=== PATIENT | male | born 1965 | race Caucasian/White ===

== ENCOUNTER 2018-08-08 17:44 | Inpatient (IN) | payer MEDICAID, OTHER ==
[2018-08-08] MEDS ORDERED: Metoprolol tartrate 1 mg/ml 5mL Amp IV STA (17:59)
[2018-08-08] MEDS ORDERED: Metoprolol tartrate 1 mg/ml 5mL Amp IV ONE (18:00)
[2018-08-08] MEDS ORDERED: cefTRIAXone 1 GM in Sodium Chloride 0.9% 50 ML IV ONE (18:19)
[2018-08-08 18:20] LABS: % BASOPHILS 0.4 % (0.0-2.0); % EOSINOPHILS 2.1 % (0.0-5.0); % LYMPHOCYTES 19.6 % (20.0-50.0); % MONOCYTES 7.1 % (2.0-10.0); % NEUTROPHILS 70.8 % (40.0-80.0); EOSINOPHILE ABSOLUTE 0.2 Th/cmm (0.1-0.4); HEMATOCRIT 43.9 % (41.0-60); HEMOGLOBIN 14.3 gm/dL (12-16); LYMPHOCYTE ABSOLUTE 1.5 Th/cmm (1.5-3.0); MEAN CELL VOLUME 84.2 fl (80-99); MEAN CORPUSCULAR HEMOGLOBIN 27.5 pg (26.0-30.0); MEAN CORPUSCULAR HGB CONC 32.7 pg (28.0-36.0); MEAN PLATELET VOLUME 7.8 fl; MONOCYTE ABSOLUTE 0.6 Th/cmm (0.3-1.0); NEUTROPHILE ABSOLUTE 5.5 Th/cmm (1.8-8.0); PLATELET COUNT 244 Th/cmm (150-400); RED BLOOD COUNT 5.21 Mil/cmm (4.30-5.70); RED CELL DISTRIBUTION WIDTH 14.4 % (11.5-20.0); WHITE BLOOD COUNT 7.8 Th/cmm (4.8-10.8)
[2018-08-08 18:30] LABS: INR 1.33 (0.5-1.4); PROTHROMBIN TIME (TEST) 13.6 SECONDS (9.5-11.5)
[2018-08-08] MEDS ORDERED: Lactated Ringer 1,000 ML IV ONE (18:30)
[2018-08-08 18:32] LABS: ALB/GLOB RATIO 1.3 (1.0-1.8); ALKALINE PHOSPHATASE 95 U/L (34-104); ANION GAP 14.8 (7.0-16.0); BILIRUBIN,TOTAL 1.3 mg/dL (0.3-1.0); BUN - UREA NITROGEN 19 mg/dL (7-25); CALCIUM SERUM 9.1 mg/dL (8.6-10.3); CARBON DIOXIDE 27.1 mEq/L (21.0-31.0); CHLORIDE 101 mEq/L (98-107); CREATININE - SERUM 1.5 mg/dL (0.7-1.3); GFR AFRICAN-AMERICAN > 60.0 ml/min (>90); GLUCOSE 113 mg/dL (70-105); MAGNESIUM 1.8 mg/dL (1.9-2.7); POTASSIUM SERUM 3.9 mEq/L (3.5-5.1); SGOT 61 U/L (13-39); SGPT/ALT 65 U/L (7-52); SODIUM SERUM 139 mEq/L (136-145)
[2018-08-08 18:50] LABS: DDIMER QUANT 547 ng/mL (100-400)
[2018-08-08 19:07] LABS: URINE SOURCE CLEAN C
[2018-08-08 19:12] LABS: URINE BILIRUBIN MODERATE (NEGATIVE); URINE BLOOD NEGATIVE (NEGATIVE); URINE GLUCOSE (UA) NEGATIVE (NEGATIVE); URINE KETONE NEGATIVE (NEGATIVE); URINE LEUKOCYTE ESTERASE TRACE (NEGATIVE); URINE MICROSCOPIC INDICATED? YES; URINE NITRATE NEGATIVE (NEGATIVE); URINE PH 5.5 (4.6 - 8.0); URINE PROTEIN 30 mg/dL (NEGATIVE)
--- NOTE | 2018-08-08 19:16 | ED Physician Chart ---
ED Chief Complaint/HPI - Patient Information Allergies:: Allergies Allergy/AdvReac Type Severity Reaction Status Date / Time No Known Allergies Allergy Verified 08/08/18 18:00 Vitals:: Vital Signs - 8 hr 08/08/18 08/08/18 18:03 18:19 Temp 97.5 F HR 106 108 RR 22 BP 127/101 127/101 O2 Sat % 99 Family Medical History - Family Member Mother History Unknown: Yes ED Labs/Radiology/EKG Results - Lab Results Results: Laboratory Tests 08/08/18 08/08/18 08/08/18 18:10 18:10 18:10 WBC 7.8 RBC 5.21 Hgb 14.3 Hct 43.9 MCV 84.2 MCH 27.5 MCHC Differential 32.7 RDW 14.4 Plt Count 244 MPV 7.8 Neutrophils % 70.8 Lymphocytes % 19.6 L Monocytes % 7.1 Eosinophils % 2.1 Basophils % 0.4 PT INR PTT (Actin FS) D-Dimer 547 H Sodium 139 Potassium 3.9 Chloride 101 Carbon Dioxide 27.1 Anion Gap 14.8 BUN 19 Creatinine 1.5 H Est GFR ( Amer) > 60.0 Est GFR (Non-Af Amer) 52.0 BUN/Creatinine Ratio 12.7 Glucose 113 H Calcium 9.1 Phosphorus 4.0 Magnesium 1.8 L Total Bilirubin 1.3 H AST 61 H ALT 65 H Alkaline Phosphatase 95 Troponin I 0.23 H* D B-Natriuretic Peptide Total Protein 7.0 Albumin 4.0 L Globulin 3.0 Albumin/Globulin Ratio 1.3 08/08/18 08/08/18 18:10 18:10 WBC RBC Hgb Hct MCV MCH MCHC Differential RDW Plt Count MPV Neutrophils % Lymphocytes % Monocytes % Eosinophils % Basophils % PT 13.6 H INR 1.33 PTT (Actin FS) 29.2 D-Dimer Sodium Potassium Chloride Carbon Dioxide Anion Gap BUN Creatinine Est GFR ( Amer) Est GFR (Non-Af Amer) BUN/Creatinine Ratio Glucose Calcium Phosphorus Magnesium Total Bilirubin AST ALT Alkaline Phosphatase Troponin I B-Natriuretic Peptide 866.0 H Total Protein Albumin Globulin Albumin/Globulin Ratio ED Assessment - Assessment General Assessment: CXR: cardiomegaly and right hilar pneumonia. EKG from 17:43:37 p.m. sinus tachycardia, ST depression in V5-V6 Dr. Brizuela gave admit orders at 7:15 p.m. ED Septic Shock - . Is Septic Shock (SBP<90, OR Lactate>4 mmol\L) present?: No - <6hrs of presentation: Vital Signs: Vital Signs - 8 hr 08/08/18 08/08/18 18:03 18:19 Temp 97.5 F HR 106 108 RR 22 BP 127/101 127/101 O2 Sat % 99 ED Reassessment (Disposition) - Reassessment Reassessment Condition:: Improved - Diagnosis Diagnosis:: NonSTEMI myocardial infarction Right hilar pneumonia Renal insufficiency Elevated ddimer Elevated liver function tests Methamphetamine induced cardiomyopathy.
[2018-08-08 19:19] LABS: AMPHETAMINE URINE POSITIVE (NEGATIVE); METHAMPHETAMINES QUAL URINE POSITIVE (NEGATIVE)
[2018-08-08 19:20] LABS: BARBITURATES URINE NEGATIVE (NEGATIVE); BENZODIAZEPINES QUAL URINE NEGATIVE (NEGATIVE); CANNABINOID THC POSITIVE (NEGATIVE); COCAINE METABOLITE QUAL URINE NEGATIVE (NEGATIVE); METHADONE URINE NEGATIVE (NEGATIVE); OPIATES (MORPHINE) QUAL. URINE NEGATIVE (NEGATIVE); PHENCYCLIDINE (PCP) URINE NEGATIVE (NEGATIVE); TRICYCLICS (TCA) QUAL. URINE NEGATIVE (NEGATIVE)
[2018-08-08 19:27] LABS: URINE CLARITY HAZY (CLEAR)
[2018-08-08 19:28] LABS: URINE COLOR LIGHT ORANGE
[2018-08-08 19:29] LABS: URINE RBC NONE SEEN /hpf (0-5)
[2018-08-08 19:30] LABS: URINE BACTERIA MODERATE /hpf (NONE SEEN); URINE EPITHELIAL CELLS FEW /lpf (FEW)
[2018-08-08 19:34] LABS: URINE ICTOTEST NEGATIVE (NEGATIVE)
[2018-08-08 22:03] VITALS: BP 113/83
[2018-08-08] MEDS: Azithromycin 500 MG in Sodium Chloride 0.9% 250 ML IV SCH (22:36)
[2018-08-09 06:17] LABS: % BASOPHILS 0.7 % (0.0-2.0); % EOSINOPHILS 2.1 % (0.0-5.0); % LYMPHOCYTES 15.9 % (20.0-50.0); % MONOCYTES 7.3 % (2.0-10.0); BASOPHILE ABSOLUTE 0.1 Th/cumm (0-0.2); EOSINOPHILE ABSOLUTE 0.2 Th/cmm (0.1-0.4); HEMATOCRIT 41.6 % (41.0-60); HEMOGLOBIN 13.3 gm/dL (12-16); LYMPHOCYTE ABSOLUTE 1.3 Th/cmm (1.5-3.0); MEAN CELL VOLUME 85.4 fl (80-99); MEAN CORPUSCULAR HEMOGLOBIN 27.3 pg (26.0-30.0); MEAN PLATELET VOLUME 7.8 fl; MONOCYTE ABSOLUTE 0.6 Th/cmm (0.3-1.0); NEUTROPHILE ABSOLUTE 5.8 Th/cmm (1.8-8.0); PLATELET COUNT 241 Th/cmm (150-400); RED BLOOD COUNT 4.88 Mil/cmm (4.30-5.70)
[2018-08-09 06:46] LABS: ALB/GLOB RATIO 1.3 (1.0-1.8); ALBUMIN 3.6 gm/dL (4.2-5.5); ANION GAP 12.2 (7.0-16.0); BILIRUBIN,TOTAL 1.2 mg/dL (0.3-1.0); CARBON DIOXIDE 28.3 mEq/L (21.0-31.0); CREATININE - SERUM 1.7 mg/dL (0.7-1.3); GFR AFRICAN-AMERICAN 54.5 ml/min (>90); POTASSIUM SERUM 4.5 mEq/L (3.5-5.1); TOTAL PROTEIN,SERUM 6.4 gm/dL (6.0-8.3)
[2018-08-09] MEDS ORDERED: Non-Formulary Item 1 EA (Albuterol Sulfate [Proair Respiclick] 90 MCG) IH PRN (08:15)
[2018-08-09] MEDS ORDERED: Aspirin 81mg Chewable Tab PO SCH ×2 (09:00)
[2018-08-09] MEDS ORDERED: LISINOPRIL 20 MG PO SCH (09:00)
[2018-08-09] MEDS ORDERED: Albuterol Nebulizer 2.5mg/3mL HHN PRN (09:26)
--- NOTE | 2018-08-09 09:38 | Diagnostic Imaging Report ---
CHEST X-RAY: AP view INDICATION: pain COMPARISON: 10/26/2014 FINDINGS: There is no focal consolidation or pleural effusions cardiomegaly is noted. Degenerative changes of the spine are noted. IMPRESSION: No focal consolidation identified. Cardiomegaly.
--- NOTE | 2018-08-09 10:00 | History & Physical ---
ADMIT DATE: 08/08/2018 HISTORY OF PRESENT ILLNESS: The patient is a 52-year-old male patient who came to the Emergency Room complaining of chest pain and shortness of breath and the patient is apparently homeless. The patient was evaluated in the Emergency Room, found to have multiple problems including cardiomegaly, non-STEMI, renal insufficiency, elevated D-dimer and with a history of drug abuse and elevated liver enzymes, was admitted for evaluation of his right gilbert and possible right hilar pneumonia and rule out non-STEMI. Difficult to obtain much history from the patient. PAST MEDICAL HISTORY: Again included history of drug abuse, history of cardiomegaly and history of cardiomyopathy. The patient was recently admitted to some other hospital and a complete workup done and also has renal insufficiency. LABORATORY DATA: Initially when he came in, his white count 7.8, hemoglobin 14.3, hematocrit was okay. PT/INR is slightly high 1.33 INR and the patient's BUN of 19, creatinine 1.5 and his troponin was 0.23 and beta natriuretic peptide . The patient also has some bacteria in the urine and also positive for amphetamine and white cells 6-10. PHYSICAL EXAMINATION: HEAD: Normocephalic. EYES: Pupils equal and reactive to light. NECK: Supple, nontender. LUNGS: Bilateral rales. CARDIOVASCULAR SYSTEM: S1, S2 heard. ABDOMEN: Soft. Bowel sounds are heard. EKG showed some ST-T changes, ST depression in V5 and V6 and sinus tachycardia. DIAGNOSES: Possible congestive heart failure, cardiomegaly, cardiomyopathy, non-ST elevated myocardial infarction, right perihilar infiltrate, possible pneumonia, urinary tract infection and history of drug abuse, probably drug induced cardiomyopathy and high liver enzymes and high BNP was made. PLAN: The patient is being admitted. I will go ahead and give him Lasix and IV antibiotics and Cardiology, Dr. Сергей Haynes; ID doctor, Dr. Eliu Haynes see the patient and I will follow the patient. [facility]# [id number]
[2018-08-09] MEDS: cefTRIAXone 1 GM in Sodium Chloride 0.9% 50 ML IV SCH (16:19)
[2018-08-09] MEDS: Azithromycin 500 MG in Sodium Chloride 0.9% 250 ML IV SCH (20:24)
--- NOTE | 2018-08-09 23:42 | Consultation ---
DATE OF CONSULTATION: 08/09/2018 PATIENT OF: Dr. Brizuela. HISTORY AND PHYSICAL: This is a 52-year-old male patient who is homeless, was brought in because of chest pain. The patient was found to have cardiomyopathy with congestive heart failure and hence Cardiology consult is requested. PAST MEDICAL HISTORY: Cardiomyopathy nonischemic, substance abuse, urinary tract infection. FAMILY HISTORY: Substance abuse, history of elevated liver enzymes. PHYSICAL EXAMINATION: VITAL SIGNS: Blood pressure 120/80, pulse 70, respirations 20, temperature 98. LUNGS: Occasional wheeze. Basilar rales. HEART: PMI sixth intercostal space with lateral to midclavicular line. S1, S2, S3, S4, soft systolic murmur radiating to the left axilla. ABDOMEN: Soft, hepatojugular reflux. Positive bowel sounds active. NEUROLOGIC: Unremarkable. EXTREMITIES: Peripheral pulses 2+. Minimal pedal edema. The patient had echocardiogram, which showed hypertrophy of the left ventricle, left atrial enlargement, right atrial enlargement, ejection fraction 20% with moderate mitral regurgitation, moderate tricuspid regurgitation, trace pulmonary regurgitation, right ventricular systolic pressure 42 mmHg. DIAGNOSES: Congestive heart failure, systolic dysfunction acute, non ST-elevation myocardial infarction, nonischemic cardiomyopathy, pneumonia, urinary tract infection, elevated liver enzymes etiology unknown, probably substance abuse. PLAN: The patient to get diuretics, preload afterload reduction. The patient to be monitored on telemetry bed. JOB# [id number]
[2018-08-10 06:45] LABS: % BASOPHILS 0.3 % (0.0-2.0); % EOSINOPHILS 4.4 % (0.0-5.0); % LYMPHOCYTES 27.5 % (20.0-50.0); % MONOCYTES 10.9 % (2.0-10.0); % NEUTROPHILS 56.9 % (40.0-80.0); EOSINOPHILE ABSOLUTE 0.3 Th/cmm (0.1-0.4); HEMATOCRIT 37.5 % (41.0-60); HEMOGLOBIN 12.4 gm/dL (12-16); LYMPHOCYTE ABSOLUTE 1.8 Th/cmm (1.5-3.0); MEAN CELL VOLUME 84.5 fl (80-99); MEAN CORPUSCULAR HEMOGLOBIN 27.9 pg (26.0-30.0); MEAN PLATELET VOLUME 8.3 fl; MONOCYTE ABSOLUTE 0.7 Th/cmm (0.3-1.0); NEUTROPHILE ABSOLUTE 3.9 Th/cmm (1.8-8.0); PLATELET COUNT 212 Th/cmm (150-400); RED BLOOD COUNT 4.44 Mil/cmm (4.30-5.70); RED CELL DISTRIBUTION WIDTH 14.2 % (11.5-20.0); WHITE BLOOD COUNT 6.7 Th/cmm (4.8-10.8)
[2018-08-10 07:04] LABS: ANION GAP 12.5 (7.0-16.0); CALCIUM SERUM 8.3 mg/dL (8.6-10.3); CARBON DIOXIDE 26.2 mEq/L (21.0-31.0); CREATININE - SERUM 1.6 mg/dL (0.7-1.3); GFR AFRICAN-AMERICAN 58.4 ml/min (>90); GFR NON AFRICAN-AMERICAN 48.3 ml/min; POTASSIUM SERUM 3.7 mEq/L (3.5-5.1)
[2018-08-10] MEDS: Aspirin 81mg Chewable Tab PO SCH (08:29)
--- NOTE | 2018-08-10 12:05 | Internal Medicine Prog Note ---
Internal Medicine Subjective - Subjective Patient seen and examined:: chart reviewed Patient is:: awake, other (pt with multiple problems non.STEMI,renal insufficiency) Per staff patient has:: no adverse event Internal Medicine Objective - Results Result Diagrams: 08/10/18 05:40 08/10/18 05:40 Recent Labs: Laboratory Last Values WBC 6.7 Th/cmm (4.8-10.8) 08/10/18 05:40 RBC 4.44 Mil/cmm (4.30-5.70) 08/10/18 05:40 Hgb 12.4 gm/dL (12-16) 08/10/18 05:40 Hct 37.5 % (41.0-60) L 08/10/18 05:40 MCV 84.5 fl (80-99) 08/10/18 05:40 MCH 27.9 pg (26.0-30.0) 08/10/18 05:40 MCHC Differential 33.0 pg (28.0-36.0) 08/10/18 05:40 RDW 14.2 % (11.5-20.0) 08/10/18 05:40 Plt Count 212 Th/cmm (150-400) 08/10/18 05:40 MPV 8.3 fl 08/10/18 05:40 Neutrophils % 56.9 % (40.0-80.0) 08/10/18 05:40 Lymphocytes % 27.5 % (20.0-50.0) 08/10/18 05:40 Monocytes % 10.9 % (2.0-10.0) H 08/10/18 05:40 Eosinophils % 4.4 % (0.0-5.0) 08/10/18 05:40 Basophils % 0.3 % (0.0-2.0) 08/10/18 05:40 PT 13.6 SECONDS (9.5-11.5) H 08/08/18 18:10 INR 1.33 (0.5-1.4) 08/08/18 18:10 PTT (Actin FS) 29.2 SECONDS (26.0-38.0) 08/08/18 18:10 D-Dimer 547 ng/mL (100-400) H 08/08/18 18:10 Sodium 136 mEq/L (136-145) 08/10/18 05:40 Potassium 3.7 mEq/L (3.5-5.1) 08/10/18 05:40 Chloride 101 mEq/L (98-107) 08/10/18 05:40 Carbon Dioxide 26.2 mEq/L (21.0-31.0) 08/10/18 05:40 Anion Gap 12.5 (7.0-16.0) 08/10/18 05:40 BUN 22 mg/dL (7-25) 08/10/18 05:40 Creatinine 1.6 mg/dL (0.7-1.3) H 08/10/18 05:40 Est GFR ( Amer) 58.4 ml/min (>90) 08/10/18 05:40 Est GFR (Non-Af Amer) 48.3 ml/min 08/10/18 05:40 BUN/Creatinine Ratio 13.8 08/10/18 05:40 Glucose 112 mg/dL (70-105) H 08/10/18 05:40 Calcium 8.3 mg/dL (8.6-10.3) L 08/10/18 05:40 Phosphorus 4.0 mg/dL (2.5-5.0) 08/08/18 18:10 Magnesium 1.8 mg/dL (1.9-2.7) L 08/08/18 18:10 Total Bilirubin 1.2 mg/dL (0.3-1.0) H 08/09/18 05:35 AST 85 U/L (13-39) H 08/09/18 05:35 ALT 94 U/L (7-52) H 08/09/18 05:35 Alkaline Phosphatase 83 U/L (34-104) 08/09/18 05:35 Troponin I 0.12 ng/mL (0.01-0.05) H* D 08/09/18 10:00 B-Natriuretic Peptide 848.0 pg/mL (5.0-100.0) H 08/10/18 05:40 Total Protein 6.4 gm/dL (6.0-8.3) 08/09/18 05:35 Albumin 3.6 gm/dL (4.2-5.5) L 08/09/18 05:35 Globulin 2.8 gm/dL 08/09/18 05:35 Albumin/Globulin Ratio 1.3 (1.0-1.8) 08/09/18 05:35 Triglycerides 77 mg/dL (<150) 08/09/18 05:35 Cholesterol 134 mg/dL (<200) 08/09/18 05:35 LDL Cholesterol Direct 122 mg/dL (75-193) 08/09/18 05:35 HDL Cholesterol 23 mg/dL (23-92) 08/09/18 05:35 TSH 1.53 uIU/ml (0.34-5.60) 08/09/18 05:00 Urine Source CLEAN C 08/08/18 19:00 Urine Color LIGHT ORANGE 08/08/18 19:00 Urine Clarity HAZY (CLEAR) 08/08/18 19:00 Urine pH 5.5 (4.6 - 8.0) 08/08/18 19:00 Ur Specific [place] >= 1.030 (1.005-1.030) 08/08/18 19:00 Urine Protein 30 mg/dL (NEGATIVE) H 08/08/18 19:00 Urine Glucose (UA) NEGATIVE mg/dL (NEGATIVE) 08/08/18 19:00 Urine Ketones NEGATIVE mg/dL (NEGATIVE) 08/08/18 19:00 Urine Blood NEGATIVE (NEGATIVE) 08/08/18 19:00 Urine Nitrate NEGATIVE (NEGATIVE) 08/08/18 19:00 Urine Bilirubin MODERATE (NEGATIVE) H 08/08/18 19:00 Urine Ictotest NEGATIVE (NEGATIVE) 08/08/18 19:00 Urine Urobilinogen 2.0 E.U./dL (0.2 - 1.0) 08/08/18 19:00 Ur Leukocyte Esterase TRACE (NEGATIVE) H 08/08/18 19:00 Urine RBC NONE SEEN /hpf (0-5) 08/08/18 19:00 Urine WBC 6-10 /hpf (0-5) 08/08/18 19:00 Ur Epithelial Cells FEW /lpf (FEW) 08/08/18 19:00 Urine Bacteria MODERATE /hpf (NONE SEEN) H 08/08/18 19:00 Urine Opiates Screen NEGATIVE (NEGATIVE) 08/08/18 19:00 Urine Methadone Screen NEGATIVE (NEGATIVE) 08/08/18 19:00 Ur Barbiturates Screen NEGATIVE (NEGATIVE) 08/08/18 19:00 Ur Tricyclics Screen NEGATIVE (NEGATIVE) 08/08/18 19:00 Ur Phencyclidine Scrn NEGATIVE (NEGATIVE) 08/08/18 19:00 Amphetamines Screen POSITIVE (NEGATIVE) H 08/08/18 19:00 U Methamphetamines Scrn POSITIVE (NEGATIVE) H 08/08/18 19:00 U Benzodiazepines Scrn NEGATIVE (NEGATIVE) 08/08/18 19:00 U Cocaine Metab Screen NEGATIVE (NEGATIVE) 08/08/18 19:00 U Cannabinoids Screen POSITIVE (NEGATIVE) H 08/08/18 19:00 - Physical Exam Vitals and I&O: Vital Signs Temp 98.3 F 08/10/18 11:33 Pulse 63 08/10/18 11:33 Resp 18 08/10/18 11:33 BP 110/68 08/10/18 11:33 Pulse Ox 98 08/10/18 11:33 Intake & Output 08/09/18 08/10/18 08/10/18 18:59 06:59 18:59 Intake Total 1250 610 Output Total 3 Balance 1250 607 Weight (lbs) 97.522 kg 97.522 kg Intake: Intake, IV Amount 250 250 Azithromycin 500 mg In 250 250 Sodium Chloride 0.9% 250 ml @ 250 mls/hr IV Q24HR REPLACED BY [facility] Rx#:[id number] Oral 1000 360 Output: Urine 3 Other: # Voids 6 # Bowel Movements 1 1 Weight Source Bedscale Bedscale Active Medications: Current Medications Albuterol Sulfate (Albuterol 2.5mg/3ml Neb Ud) 2.5 mg HHN Q4HRT PRN PRN Reason: Shortness of Breath Stop: 10/08/18 09:25 Aspirin (Aspirin Chewable) 81 mg PO DAILY JOE Stop: 10/09/18 08:59 Last Admin: 08/10/18 08:29 Dose: 81 mg Carvedilol (Coreg) 12.5 mg PO BID JOE Stop: 10/08/18 16:59 Last Admin: 08/10/18 08:29 Dose: 12.5 mg Furosemide (Lasix) 40 mg IVP BID JOE Stop: 10/08/18 16:59 Last Admin: 08/10/18 08:29 Dose: 40 mg Ceftriaxone Sodium 1 gm/ (Sodium Chloride) 50 mls @ 100 mls/hr IV Q24HR JOE Stop: 10/08/18 15:59 Last Admin: 08/09/18 16:19 Dose: 100 mls/hr Azithromycin 500 mg/ Sodium (Chloride) 250 mls @ 250 mls/hr IV Q24HR JOE Stop: 10/07/18 19:59 Last Infusion: 08/09/18 21:24 Dose: Infused Lisinopril (Zestril) 20 mg PO DAILY JOE Stop: 10/08/18 08:59 Last Admin: 08/10/18 08:28 Dose: 20 mg Nitroglycerin (Nitrostat) 0.4 mg SL Q5MIN PRN PRN Reason: Chest Pain Stop: 10/07/18 19:44 Ondansetron HCl (Zofran) 4 mg IV Q6H PRN PRN Reason: Nausea / Vomiting Stop: 10/08/18 20:54 Simvastatin (Zocor) 20 mg PO HS JOE; Protocol Stop: 10/08/18 20:59 Last Admin: 08/09/18 20:24 Dose: 20 mg General: weak, alert HEENT: NC/AT Neck: Supple Lungs: other (rales max) Cardiovascular: RRR Abdomen: soft Extremities: clear Neurological: no change, alert - Procedures Procedures: Procedures Procedure Code Date INJECT/INFUSE NEC 99.29 02/21/10 Internal Medicine Assmt/Plan - Assessment Assessment: non-STEMI cardiomegaly renal insufficiency elevated D dimer possible pneumonia uti h/o drug abuse
--- NOTE | 2018-08-10 14:59 | General Progress Note ---
Subjective - Review of Systems Service Date: 08/10/18 Subjective: Patient has less shortness of breath less swelling in the legs Objective - Results Result Diagrams: 08/10/18 05:40 08/10/18 05:40 Recent Labs: Laboratory Last Values WBC 6.7 Th/cmm (4.8-10.8) 08/10/18 05:40 RBC 4.44 Mil/cmm (4.30-5.70) 08/10/18 05:40 Hgb 12.4 gm/dL (12-16) 08/10/18 05:40 Hct 37.5 % (41.0-60) L 08/10/18 05:40 MCV 84.5 fl (80-99) 08/10/18 05:40 MCH 27.9 pg (26.0-30.0) 08/10/18 05:40 MCHC Differential 33.0 pg (28.0-36.0) 08/10/18 05:40 RDW 14.2 % (11.5-20.0) 08/10/18 05:40 Plt Count 212 Th/cmm (150-400) 08/10/18 05:40 MPV 8.3 fl 08/10/18 05:40 Neutrophils % 56.9 % (40.0-80.0) 08/10/18 05:40 Lymphocytes % 27.5 % (20.0-50.0) 08/10/18 05:40 Monocytes % 10.9 % (2.0-10.0) H 08/10/18 05:40 Eosinophils % 4.4 % (0.0-5.0) 08/10/18 05:40 Basophils % 0.3 % (0.0-2.0) 08/10/18 05:40 PT 13.6 SECONDS (9.5-11.5) H 08/08/18 18:10 INR 1.33 (0.5-1.4) 08/08/18 18:10 PTT (Actin FS) 29.2 SECONDS (26.0-38.0) 08/08/18 18:10 D-Dimer 547 ng/mL (100-400) H 08/08/18 18:10 Sodium 136 mEq/L (136-145) 08/10/18 05:40 Potassium 3.7 mEq/L (3.5-5.1) 08/10/18 05:40 Chloride 101 mEq/L (98-107) 08/10/18 05:40 Carbon Dioxide 26.2 mEq/L (21.0-31.0) 08/10/18 05:40 Anion Gap 12.5 (7.0-16.0) 08/10/18 05:40 BUN 22 mg/dL (7-25) 08/10/18 05:40 Creatinine 1.6 mg/dL (0.7-1.3) H 08/10/18 05:40 Est GFR ( Amer) 58.4 ml/min (>90) 08/10/18 05:40 Est GFR (Non-Af Amer) 48.3 ml/min 08/10/18 05:40 BUN/Creatinine Ratio 13.8 08/10/18 05:40 Glucose 112 mg/dL (70-105) H 08/10/18 05:40 Calcium 8.3 mg/dL (8.6-10.3) L 08/10/18 05:40 Phosphorus 4.0 mg/dL (2.5-5.0) 08/08/18 18:10 Magnesium 1.8 mg/dL (1.9-2.7) L 08/08/18 18:10 Total Bilirubin 1.2 mg/dL (0.3-1.0) H 08/09/18 05:35 AST 85 U/L (13-39) H 08/09/18 05:35 ALT 94 U/L (7-52) H 08/09/18 05:35 Alkaline Phosphatase 83 U/L (34-104) 08/09/18 05:35 Troponin I 0.12 ng/mL (0.01-0.05) H* D 08/09/18 10:00 B-Natriuretic Peptide 848.0 pg/mL (5.0-100.0) H 08/10/18 05:40 Total Protein 6.4 gm/dL (6.0-8.3) 08/09/18 05:35 Albumin 3.6 gm/dL (4.2-5.5) L 08/09/18 05:35 Globulin 2.8 gm/dL 08/09/18 05:35 Albumin/Globulin Ratio 1.3 (1.0-1.8) 08/09/18 05:35 Triglycerides 77 mg/dL (<150) 08/09/18 05:35 Cholesterol 134 mg/dL (<200) 08/09/18 05:35 LDL Cholesterol Direct 122 mg/dL (75-193) 08/09/18 05:35 HDL Cholesterol 23 mg/dL (23-92) 08/09/18 05:35 TSH 1.53 uIU/ml (0.34-5.60) 08/09/18 05:00 Urine Source CLEAN C 08/08/18 19:00 Urine Color LIGHT ORANGE 08/08/18 19:00 Urine Clarity HAZY (CLEAR) 08/08/18 19:00 Urine pH 5.5 (4.6 - 8.0) 08/08/18 19:00 Ur Specific [place] >= 1.030 (1.005-1.030) 08/08/18 19:00 Urine Protein 30 mg/dL (NEGATIVE) H 08/08/18 19:00 Urine Glucose (UA) NEGATIVE mg/dL (NEGATIVE) 08/08/18 19:00 Urine Ketones NEGATIVE mg/dL (NEGATIVE) 08/08/18 19:00 Urine Blood NEGATIVE (NEGATIVE) 08/08/18 19:00 Urine Nitrate NEGATIVE (NEGATIVE) 08/08/18 19:00 Urine Bilirubin MODERATE (NEGATIVE) H 08/08/18 19:00 Urine Ictotest NEGATIVE (NEGATIVE) 08/08/18 19:00 Urine Urobilinogen 2.0 E.U./dL (0.2 - 1.0) 08/08/18 19:00 Ur Leukocyte Esterase TRACE (NEGATIVE) H 08/08/18 19:00 Urine RBC NONE SEEN /hpf (0-5) 08/08/18 19:00 Urine WBC 6-10 /hpf (0-5) 08/08/18 19:00 Ur Epithelial Cells FEW /lpf (FEW) 08/08/18 19:00 Urine Bacteria MODERATE /hpf (NONE SEEN) H 08/08/18 19:00 Urine Opiates Screen NEGATIVE (NEGATIVE) 08/08/18 19:00 Urine Methadone Screen NEGATIVE (NEGATIVE) 08/08/18 19:00 Ur Barbiturates Screen NEGATIVE (NEGATIVE) 08/08/18 19:00 Ur Tricyclics Screen NEGATIVE (NEGATIVE) 08/08/18 19:00 Ur Phencyclidine Scrn NEGATIVE (NEGATIVE) 08/08/18 19:00 Amphetamines Screen POSITIVE (NEGATIVE) H 08/08/18 19:00 U Methamphetamines Scrn POSITIVE (NEGATIVE) H 08/08/18 19:00 U Benzodiazepines Scrn NEGATIVE (NEGATIVE) 08/08/18 19:00 U Cocaine Metab Screen NEGATIVE (NEGATIVE) 08/08/18 19:00 U Cannabinoids Screen POSITIVE (NEGATIVE) H 08/08/18 19:00 - Physical Exam Vitals and I&O: Vital Signs Temp 98.3 F 08/10/18 11:33 Pulse 74 08/10/18 14:26 Resp 18 08/10/18 14:26 BP 110/68 08/10/18 11:33 Pulse Ox 97 08/10/18 14:26 Intake & Output 08/09/18 08/10/18 08/10/18 18:59 06:59 18:59 Intake Total 1250 610 Output Total 3 Balance 1250 607 Weight (lbs) 97.522 kg 97.522 kg Intake: Intake, IV Amount 250 250 Azithromycin 500 mg In 250 250 Sodium Chloride 0.9% 250 ml @ 250 mls/hr IV Q24HR [facility] Rx#:[id number] Oral 1000 360 Output: Urine 3 Other: # Voids 6 # Bowel Movements 1 1 Weight Source Bedscale Bedscale Active Medications: Current Medications Albuterol Sulfate (Albuterol 2.5mg/3ml Neb Ud) 2.5 mg HHN Q4HRT PRN PRN Reason: Shortness of Breath Stop: 10/08/18 09:25 Aspirin (Aspirin Chewable) 81 mg PO DAILY [facility] Stop: 10/09/18 08:59 Last Admin: 08/10/18 08:29 Dose: 81 mg Carvedilol (Coreg) 12.5 mg PO BID JOE Stop: 10/08/18 16:59 Last Admin: 08/10/18 08:29 Dose: 12.5 mg Furosemide (Lasix) 40 mg IVP BID JOE Stop: 10/08/18 16:59 Last Admin: 08/10/18 08:29 Dose: 40 mg Ceftriaxone Sodium 1 gm/ (Sodium Chloride) 50 mls @ 100 mls/hr IV Q24HR JOE Stop: 10/08/18 15:59 Last Admin: 08/09/18 16:19 Dose: 100 mls/hr Azithromycin 500 mg/ Sodium (Chloride) 250 mls @ 250 mls/hr IV Q24HR JOE Stop: 10/07/18 19:59 Last Infusion: 08/09/18 21:24 Dose: Infused Lisinopril (Zestril) 20 mg PO DAILY JOE Stop: 10/08/18 08:59 Last Admin: 08/10/18 08:28 Dose: 20 mg Nitroglycerin (Nitrostat) 0.4 mg SL Q5MIN PRN PRN Reason: Chest Pain Stop: 10/07/18 19:44 Ondansetron HCl (Zofran) 4 mg IV Q6H PRN PRN Reason: Nausea / Vomiting Stop: 10/08/18 20:54 Simvastatin (Zocor) 20 mg PO HS JOE; Protocol Stop: 10/08/18 20:59 Last Admin: 08/09/18 20:24 Dose: 20 mg General: Alert, Oriented x3, Mild distress HEENT: Mucous membr. moist/pink Neck: Supple, JVD, +2 carotid pulse wo bruit (10 cm upon sternal angle) Cardiovascular: Regular rate, Normal S1, Normal S2, Systolic murmurs Lungs: Other Abdomen: Bowel sounds, Soft, Obese Extremities: Edema Neurological: Normal gait, Normal speech (r), Strength at 5/5 X4 ext, Normal tone, Cranial nerves 3-12 NL, Reflexes 2+ - Procedures Procedures: Procedures Procedure Code Date INJECT/INFUSE NEC 99.29 02/21/10 Assessment/Plan - Problem List Patient Problems: All Active Problems NSTEMI (non-ST elevated myocardial infarction) (Acute) I21.4 POSSIBLE SEIZURE WITH RIGHT EAR PAIN (Acute) - Assessment Assessment: Congestive heart failure systolic dysfunction and acute Nonischemic cardiomyopathy ejection fraction 20% Non-STEMI myocardial infarction Substance abuse Pneumonia urinary tract infection Elevated liver enzymes - Plan Plan: Continue Lasix.
[2018-08-10] MEDS: cefTRIAXone 1 GM in Sodium Chloride 0.9% 50 ML IV SCH (16:56)
[2018-08-10] MEDS ORDERED: Sodium Chloride 0.9% 500 ML IV ONE (20:30)
[2018-08-10] MEDS: Azithromycin 500 MG in Sodium Chloride 0.9% 250 ML IV SCH (20:56)
[2018-08-10 21:51] LABS: INF A SCREEN NEG FOR INF A; INF B SCREEN NEG FOR INF B
[2018-08-10] MEDS ORDERED: Albumin 25% 25gm/100mL 25 GM/100 ML BTL IV ONE (23:40)
[2018-08-10] MEDS ORDERED: Norepinephrine 4 mg/4mL Vial IV ONE (23:44)
[2018-08-11] MEDS ORDERED: Albumin 25% 25gm/100mL 25 GM/100 ML BTL IV ONE (00:40)
--- NOTE | 2018-08-11 04:45 | Consultation ---
DATE OF CONSULTATION: 08/10/2018 INFECTIOUS DISEASE CONSULTATION REFERRING PHYSICIAN: Haily Brizuela MD REASON FOR CONSULTATION: Pneumonia. HISTORY OF PRESENT ILLNESS: The patient is a 52-year-old male with a past medical history of IV drug abuse, cardiomyopathy with ejection fraction 20%, presented to ER with chest pain and shortness of breath. On initial evaluation, the patient's temperature was 97.5 degrees Fahrenheit and WBC count was 7800. Chest x-ray showed right perihilar infiltrates. ID consult was called for the antibiotic management. Meanwhile, the patient was already started on Rocephin and Zithromax. PAST MEDICAL HISTORY: As mentioned above, the patient has history of IV drug abuse, severe cardiomyopathy with a low ejection fraction of 20% and non-[place] myocardial infarction, renal insufficiency, elevated liver enzymes, cardiomyopathy. SOCIAL HISTORY: The patient is homeless. Has history of smoking and alcohol. The patient has history of smoking and IV drug abuse in the past. FAMILY HISTORY: Not available. PHYSICAL EXAMINATION: VITAL SIGNS: Current vital signs shows temperature is 98 degrees Fahrenheit, pulse 74, respirations 17, blood pressure 116/74. GENERAL: Pleasant, comfortable lying in the bed, not in acute distress. HEENT: Head is normocephalic, atraumatic. Oral cavity moist, pink tongue. Eyes: Pallor is present. NECK: Supple. JVD present. CHEST: Bilateral breath sounds, decreased breath sounds at bases. HEART: S1, S2 within normal limits. Regular rhythm. No murmur, no gallop. ABDOMEN: Soft, nontender, nondistended. Bowel sounds present. EXTREMITIES: No cyanosis, clubbing or edema. NEUROLOGIC: Alert, awake, oriented x 3. LABORATORY DATA: Current lab shows WBC count is 6700, hemoglobin 12.4, hematocrit 37.5, platelets are 212,000, neutrophils 57%. Sodium 136, potassium 3.7, chloride 101, bicarb is 26.2, BUN is 22, creatinine 1.6, glucose is 112. Urinalysis showed leukocyte esterase, moderate bacteria, wbc's 6-10. Urine tox screen was positive for amphetamine, methamphetamine and cannabinoids. Blood culture 2 sets are negative. MRSA screen is negative. Chest x-ray reported negative, but there is right perihilar infiltrate, cardiomegaly. IMPRESSION: 1. Right-sided pneumonia. 2. Mild urinary tract infection. 3. Congestive heart failure. 4. IV drug abuse. 5. Cardiomyopathy with low ejection fraction. 6. Renal insufficiency. 7. Drug abuse. 8. Elevated liver enzymes. PLAN: Continue vancomycin and continue Rocephin and Zithromax. Check influenza screen. Systolic blood pressure dropped to 80s, so IV fluids bolus was given. Thank you Dr. Brizuela for allowing me to take care of this patient. JOB# [id number] MTDD
[2018-08-11 05:17] LABS: CALCIUM SERUM 8.4 mg/dL (8.6-10.3); CARBON DIOXIDE 26.9 mEq/L (21.0-31.0); CREATININE - SERUM 1.6 mg/dL (0.7-1.3); GFR AFRICAN-AMERICAN 58.4 ml/min (>90); GFR NON AFRICAN-AMERICAN 48.3 ml/min; POTASSIUM SERUM 3.9 mEq/L (3.5-5.1)
[2018-08-11] MEDS: Aspirin 81mg Chewable Tab PO SCH (08:17)
--- NOTE | 2018-08-11 12:23 | General Progress Note ---
Subjective - Review of Systems Service Date: 08/11/18 Subjective: Patient has less shortness of breath less swelling in the legs Patient transferred to ICU as patient became hypotensive Objective - Results Result Diagrams: 08/10/18 05:40 08/11/18 04:15 Recent Labs: Laboratory Last Values WBC 6.7 Th/cmm (4.8-10.8) 08/10/18 05:40 RBC 4.44 Mil/cmm (4.30-5.70) 08/10/18 05:40 Hgb 12.4 gm/dL (12-16) 08/10/18 05:40 Hct 37.5 % (41.0-60) L 08/10/18 05:40 MCV 84.5 fl (80-99) 08/10/18 05:40 MCH 27.9 pg (26.0-30.0) 08/10/18 05:40 MCHC Differential 33.0 pg (28.0-36.0) 08/10/18 05:40 RDW 14.2 % (11.5-20.0) 08/10/18 05:40 Plt Count 212 Th/cmm (150-400) 08/10/18 05:40 MPV 8.3 fl 08/10/18 05:40 Neutrophils % 56.9 % (40.0-80.0) 08/10/18 05:40 Lymphocytes % 27.5 % (20.0-50.0) 08/10/18 05:40 Monocytes % 10.9 % (2.0-10.0) H 08/10/18 05:40 Eosinophils % 4.4 % (0.0-5.0) 08/10/18 05:40 Basophils % 0.3 % (0.0-2.0) 08/10/18 05:40 PT 13.6 SECONDS (9.5-11.5) H 08/08/18 18:10 INR 1.33 (0.5-1.4) 08/08/18 18:10 PTT (Actin FS) 29.2 SECONDS (26.0-38.0) 08/08/18 18:10 D-Dimer 547 ng/mL (100-400) H 08/08/18 18:10 Sodium 137 mEq/L (136-145) 08/11/18 04:15 Potassium 3.9 mEq/L (3.5-5.1) 08/11/18 04:15 Chloride 101 mEq/L (98-107) 08/11/18 04:15 Carbon Dioxide 26.9 mEq/L (21.0-31.0) 08/11/18 04:15 Anion Gap 13.0 (7.0-16.0) 08/11/18 04:15 BUN 27 mg/dL (7-25) H 08/11/18 04:15 Creatinine 1.6 mg/dL (0.7-1.3) H 08/11/18 04:15 Est GFR ( Amer) 58.4 ml/min (>90) 08/11/18 04:15 Est GFR (Non-Af Amer) 48.3 ml/min 08/11/18 04:15 BUN/Creatinine Ratio 16.9 08/11/18 04:15 Glucose 117 mg/dL (70-105) H 08/11/18 04:15 Calcium 8.4 mg/dL (8.6-10.3) L 08/11/18 04:15 Phosphorus 4.0 mg/dL (2.5-5.0) 08/08/18 18:10 Magnesium 1.8 mg/dL (1.9-2.7) L 08/08/18 18:10 Total Bilirubin 1.2 mg/dL (0.3-1.0) H 08/09/18 05:35 AST 85 U/L (13-39) H 08/09/18 05:35 ALT 94 U/L (7-52) H 08/09/18 05:35 Alkaline Phosphatase 83 U/L (34-104) 08/09/18 05:35 Troponin I 0.12 ng/mL (0.01-0.05) H* D 08/09/18 10:00 B-Natriuretic Peptide 671.0 pg/mL (5.0-100.0) H 08/11/18 04:15 Total Protein 6.4 gm/dL (6.0-8.3) 08/09/18 05:35 Albumin 3.6 gm/dL (4.2-5.5) L 08/09/18 05:35 Globulin 2.8 gm/dL 08/09/18 05:35 Albumin/Globulin Ratio 1.3 (1.0-1.8) 08/09/18 05:35 Triglycerides 77 mg/dL (<150) 08/09/18 05:35 Cholesterol 134 mg/dL (<200) 08/09/18 05:35 LDL Cholesterol Direct 122 mg/dL (75-193) 08/09/18 05:35 HDL Cholesterol 23 mg/dL (23-92) 08/09/18 05:35 TSH 1.53 uIU/ml (0.34-5.60) 08/09/18 05:00 Urine Source CLEAN C 08/08/18 19:00 Urine Color LIGHT ORANGE 08/08/18 19:00 Urine Clarity HAZY (CLEAR) 08/08/18 19:00 Urine pH 5.5 (4.6 - 8.0) 08/08/18 19:00 Ur Specific [place] >= 1.030 (1.005-1.030) 08/08/18 19:00 Urine Protein 30 mg/dL (NEGATIVE) H 08/08/18 19:00 Urine Glucose (UA) NEGATIVE mg/dL (NEGATIVE) 08/08/18 19:00 Urine Ketones NEGATIVE mg/dL (NEGATIVE) 08/08/18 19:00 Urine Blood NEGATIVE (NEGATIVE) 08/08/18 19:00 Urine Nitrate NEGATIVE (NEGATIVE) 08/08/18 19:00 Urine Bilirubin MODERATE (NEGATIVE) H 08/08/18 19:00 Urine Ictotest NEGATIVE (NEGATIVE) 08/08/18 19:00 Urine Urobilinogen 2.0 E.U./dL (0.2 - 1.0) 08/08/18 19:00 Ur Leukocyte Esterase TRACE (NEGATIVE) H 08/08/18 19:00 Urine RBC NONE SEEN /hpf (0-5) 08/08/18 19:00 Urine WBC 6-10 /hpf (0-5) 08/08/18 19:00 Ur Epithelial Cells FEW /lpf (FEW) 08/08/18 19:00 Urine Bacteria MODERATE /hpf (NONE SEEN) H 08/08/18 19:00 Urine Opiates Screen NEGATIVE (NEGATIVE) 08/08/18 19:00 Urine Methadone Screen NEGATIVE (NEGATIVE) 08/08/18 19:00 Ur Barbiturates Screen NEGATIVE (NEGATIVE) 08/08/18 19:00 Ur Tricyclics Screen NEGATIVE (NEGATIVE) 08/08/18 19:00 Ur Phencyclidine Scrn NEGATIVE (NEGATIVE) 08/08/18 19:00 Amphetamines Screen POSITIVE (NEGATIVE) H 08/08/18 19:00 U Methamphetamines Scrn POSITIVE (NEGATIVE) H 08/08/18 19:00 U Benzodiazepines Scrn NEGATIVE (NEGATIVE) 08/08/18 19:00 U Cocaine Metab Screen NEGATIVE (NEGATIVE) 08/08/18 19:00 U Cannabinoids Screen POSITIVE (NEGATIVE) H 08/08/18 19:00 HIV 1&2 Antibody Screen NEGATIVE (NEG) 08/11/18 04:15 Influenza A (Rapid) NEG FOR INF A 08/10/18 20:45 Influenza B (Rapid) NEG FOR INF B 08/10/18 20:45 - Physical Exam Vitals and I&O: Vital Signs Temp 97.4 F 08/11/18 11:00 Pulse 77 08/11/18 11:00 Resp 17 08/11/18 11:00 BP 105/72 08/11/18 11:00 Pulse Ox 98 08/11/18 11:00 Intake & Output 08/10/18 08/11/18 08/11/18 18:59 06:59 18:59 Intake Total 950 257.023 Balance 950 257.023 Weight (lbs) 97.522 kg Intake: Intake, IV Amount 50 257.023 Albumin 25% 25gm/100mL 25 100 gm In 100 ml @ 50 mls/hr IV X1 ONE Rx#:[id number] Norepinephrine 4 mg In 57.023 Dextrose 5% 250 ml @ Per Protocol IV TITR PRN Rx#: [id number] cefTRIAXone 1 gm In 50 Sodium Chloride 0.9% 50 ml @ 100 mls/hr IV Q24HR [facility] Rx#:[id number] Oral 900 Other: # Voids 5 # Bowel Movements 1 Stool Characteristics Soft Formed Weight Source Bedscale Active Medications: Current Medications Albuterol Sulfate (Albuterol 2.5mg/3ml Neb Ud) 2.5 mg HHN Q4HRT PRN PRN Reason: Shortness of Breath Stop: 10/08/18 09:25 Aspirin (Aspirin Chewable) 81 mg PO DAILY [facility] Stop: 10/09/18 08:59 Last Admin: 08/11/18 08:17 Dose: 81 mg Furosemide (Lasix) 40 mg IVP BID [facility] Stop: 10/08/18 16:59 Last Admin: 08/11/18 08:23 Dose: Not Given Ceftriaxone Sodium 1 gm/ (Sodium Chloride) 50 mls @ 100 mls/hr IV Q24HR [facility] Stop: 10/08/18 15:59 Last Infusion: 08/10/18 18:14 Dose: Infused Azithromycin 500 mg/ Sodium (Chloride) 250 mls @ 250 mls/hr IV Q24HR [facility] Stop: 10/07/18 19:59 Last Admin: 08/10/18 20:56 Dose: 250 mls/hr Norepinephrine Bitartrate 4 mg (/ Dextrose) 254 mls @ 0 mls/hr IV TITR PRN; Protocol PRN Reason: BP MAINTENANCE (PER PROTOCOL) Stop: 10/09/18 23:21 Last Titration: 08/11/18 05:00 Dose: 0 mcg/min, 0 mls/hr Nitroglycerin (Nitrostat) 0.4 mg SL Q5MIN PRN PRN Reason: Chest Pain Stop: 10/07/18 19:44 Ondansetron HCl (Zofran) 4 mg IV Q6H PRN PRN Reason: Nausea / Vomiting Stop: 10/08/18 20:54 Last Admin: 08/10/18 22:47 Dose: 4 mg Simvastatin (Zocor) 20 mg PO HS [facility]; Protocol Stop: 10/08/18 20:59 Last Admin: 08/10/18 20:59 Dose: 20 mg General: Alert, Oriented x3, Mild distress HEENT: Mucous membr. moist/pink Neck: Supple, JVD, +2 carotid pulse wo bruit (10 cm upon sternal angle) Cardiovascular: Regular rate, Normal S1, Normal S2, Systolic murmurs Lungs: Other Abdomen: Bowel sounds, Soft, Obese Extremities: Edema Neurological: Normal gait, Normal speech (r), Strength at 5/5 X4 ext, Normal tone, Cranial nerves 3-12 NL, Reflexes 2+ - Procedures Procedures: Procedures Procedure Code Date INJECT/INFUSE NEC 99.29 02/21/10 Assessment/Plan - Problem List Patient Problems: All Active Problems NSTEMI (non-ST elevated myocardial infarction) (Acute) I21.4 POSSIBLE SEIZURE WITH RIGHT EAR PAIN (Acute) - Assessment Assessment: Congestive heart failure systolic dysfunction and acute Nonischemic cardiomyopathy ejection fraction 20% Non-STEMI myocardial infarction Substance abuse Pneumonia urinary tract infection Elevated liver enzymes Hold Coreg and lisinopril due to hypotension - Plan Plan: Continue Lasix. Hold lisinopril and Coreg due to hypotension
--- NOTE | 2018-08-11 12:30 | Internal Medicine Prog Note ---
Internal Medicine Subjective - Subjective Service Date: 08/11/18 Patient seen and examined:: with staff, chart reviewed Patient is:: awake, other (pt with multiple problems non.STEMI,renal insufficiency.) Patient Complaints of:: cough Per staff patient has:: no adverse event, no episodes of fall Internal Medicine Objective - Results Result Diagrams: 08/10/18 05:40 08/11/18 04:15 Recent Labs: Laboratory Last Values WBC 6.7 Th/cmm (4.8-10.8) 08/10/18 05:40 RBC 4.44 Mil/cmm (4.30-5.70) 08/10/18 05:40 Hgb 12.4 gm/dL (12-16) 08/10/18 05:40 Hct 37.5 % (41.0-60) L 08/10/18 05:40 MCV 84.5 fl (80-99) 08/10/18 05:40 MCH 27.9 pg (26.0-30.0) 08/10/18 05:40 MCHC Differential 33.0 pg (28.0-36.0) 08/10/18 05:40 RDW 14.2 % (11.5-20.0) 08/10/18 05:40 Plt Count 212 Th/cmm (150-400) 08/10/18 05:40 MPV 8.3 fl 08/10/18 05:40 Neutrophils % 56.9 % (40.0-80.0) 08/10/18 05:40 Lymphocytes % 27.5 % (20.0-50.0) 08/10/18 05:40 Monocytes % 10.9 % (2.0-10.0) H 08/10/18 05:40 Eosinophils % 4.4 % (0.0-5.0) 08/10/18 05:40 Basophils % 0.3 % (0.0-2.0) 08/10/18 05:40 PT 13.6 SECONDS (9.5-11.5) H 08/08/18 18:10 INR 1.33 (0.5-1.4) 08/08/18 18:10 PTT (Actin FS) 29.2 SECONDS (26.0-38.0) 08/08/18 18:10 D-Dimer 547 ng/mL (100-400) H 08/08/18 18:10 Sodium 137 mEq/L (136-145) 08/11/18 04:15 Potassium 3.9 mEq/L (3.5-5.1) 08/11/18 04:15 Chloride 101 mEq/L (98-107) 08/11/18 04:15 Carbon Dioxide 26.9 mEq/L (21.0-31.0) 08/11/18 04:15 Anion Gap 13.0 (7.0-16.0) 08/11/18 04:15 BUN 27 mg/dL (7-25) H 08/11/18 04:15 Creatinine 1.6 mg/dL (0.7-1.3) H 08/11/18 04:15 Est GFR ( Amer) 58.4 ml/min (>90) 08/11/18 04:15 Est GFR (Non-Af Amer) 48.3 ml/min 08/11/18 04:15 BUN/Creatinine Ratio 16.9 08/11/18 04:15 Glucose 117 mg/dL (70-105) H 08/11/18 04:15 Calcium 8.4 mg/dL (8.6-10.3) L 08/11/18 04:15 Phosphorus 4.0 mg/dL (2.5-5.0) 08/08/18 18:10 Magnesium 1.8 mg/dL (1.9-2.7) L 08/08/18 18:10 Total Bilirubin 1.2 mg/dL (0.3-1.0) H 08/09/18 05:35 AST 85 U/L (13-39) H 08/09/18 05:35 ALT 94 U/L (7-52) H 08/09/18 05:35 Alkaline Phosphatase 83 U/L (34-104) 08/09/18 05:35 Troponin I 0.12 ng/mL (0.01-0.05) H* D 08/09/18 10:00 B-Natriuretic Peptide 671.0 pg/mL (5.0-100.0) H 08/11/18 04:15 Total Protein 6.4 gm/dL (6.0-8.3) 08/09/18 05:35 Albumin 3.6 gm/dL (4.2-5.5) L 08/09/18 05:35 Globulin 2.8 gm/dL 08/09/18 05:35 Albumin/Globulin Ratio 1.3 (1.0-1.8) 08/09/18 05:35 Triglycerides 77 mg/dL (<150) 08/09/18 05:35 Cholesterol 134 mg/dL (<200) 08/09/18 05:35 LDL Cholesterol Direct 122 mg/dL (75-193) 08/09/18 05:35 HDL Cholesterol 23 mg/dL (23-92) 08/09/18 05:35 TSH 1.53 uIU/ml (0.34-5.60) 08/09/18 05:00 Urine Source CLEAN C 08/08/18 19:00 Urine Color LIGHT ORANGE 08/08/18 19:00 Urine Clarity HAZY (CLEAR) 08/08/18 19:00 Urine pH 5.5 (4.6 - 8.0) 08/08/18 19:00 Ur Specific [place] >= 1.030 (1.005-1.030) 08/08/18 19:00 Urine Protein 30 mg/dL (NEGATIVE) H 08/08/18 19:00 Urine Glucose (UA) NEGATIVE mg/dL (NEGATIVE) 08/08/18 19:00 Urine Ketones NEGATIVE mg/dL (NEGATIVE) 08/08/18 19:00 Urine Blood NEGATIVE (NEGATIVE) 08/08/18 19:00 Urine Nitrate NEGATIVE (NEGATIVE) 08/08/18 19:00 Urine Bilirubin MODERATE (NEGATIVE) H 08/08/18 19:00 Urine Ictotest NEGATIVE (NEGATIVE) 08/08/18 19:00 Urine Urobilinogen 2.0 E.U./dL (0.2 - 1.0) 08/08/18 19:00 Ur Leukocyte Esterase TRACE (NEGATIVE) H 08/08/18 19:00 Urine RBC NONE SEEN /hpf (0-5) 08/08/18 19:00 Urine WBC 6-10 /hpf (0-5) 08/08/18 19:00 Ur Epithelial Cells FEW /lpf (FEW) 08/08/18 19:00 Urine Bacteria MODERATE /hpf (NONE SEEN) H 08/08/18 19:00 Urine Opiates Screen NEGATIVE (NEGATIVE) 08/08/18 19:00 Urine Methadone Screen NEGATIVE (NEGATIVE) 08/08/18 19:00 Ur Barbiturates Screen NEGATIVE (NEGATIVE) 08/08/18 19:00 Ur Tricyclics Screen NEGATIVE (NEGATIVE) 08/08/18 19:00 Ur Phencyclidine Scrn NEGATIVE (NEGATIVE) 08/08/18 19:00 Amphetamines Screen POSITIVE (NEGATIVE) H 08/08/18 19:00 U Methamphetamines Scrn POSITIVE (NEGATIVE) H 08/08/18 19:00 U Benzodiazepines Scrn NEGATIVE (NEGATIVE) 08/08/18 19:00 U Cocaine Metab Screen NEGATIVE (NEGATIVE) 08/08/18 19:00 U Cannabinoids Screen POSITIVE (NEGATIVE) H 08/08/18 19:00 HIV 1&2 Antibody Screen NEGATIVE (NEG) 08/11/18 04:15 Influenza A (Rapid) NEG FOR INF A 08/10/18 20:45 Influenza B (Rapid) NEG FOR INF B 08/10/18 20:45 - Physical Exam Vitals and I&O: Vital Signs Temp 97.4 F 08/11/18 11:00 Pulse 77 08/11/18 11:00 Resp 17 08/11/18 11:00 BP 105/72 08/11/18 11:00 Pulse Ox 98 08/11/18 11:00 Intake & Output 08/10/18 08/11/18 08/11/18 18:59 06:59 18:59 Intake Total 950 257.023 Balance 950 257.023 Weight (lbs) 97.522 kg Intake: Intake, IV Amount 50 257.023 Albumin 25% 25gm/100mL 25 100 gm In 100 ml @ 50 mls/hr IV X1 ONE Rx#:[id number] Norepinephrine 4 mg In 57.023 Dextrose 5% 250 ml @ Per Protocol IV TITR PRN Rx#: [id number] cefTRIAXone 1 gm In 50 Sodium Chloride 0.9% 50 ml @ 100 mls/hr IV Q24HR [facility] Rx#:[id number] Oral 900 Other: # Voids 5 # Bowel Movements 1 Stool Characteristics Soft Formed Weight Source Bedscale Active Medications: Current Medications Albuterol Sulfate (Albuterol 2.5mg/3ml Neb Ud) 2.5 mg HHN Q4HRT PRN PRN Reason: Shortness of Breath Stop: 10/08/18 09:25 Aspirin (Aspirin Chewable) 81 mg PO DAILY [facility] Stop: 10/09/18 08:59 Last Admin: 08/11/18 08:17 Dose: 81 mg Furosemide (Lasix) 40 mg IVP BID [facility] Stop: 10/08/18 16:59 Last Admin: 08/11/18 08:23 Dose: Not Given Ceftriaxone Sodium 1 gm/ (Sodium Chloride) 50 mls @ 100 mls/hr IV Q24HR [facility] Stop: 10/08/18 15:59 Last Infusion: 08/10/18 18:14 Dose: Infused Azithromycin 500 mg/ Sodium (Chloride) 250 mls @ 250 mls/hr IV Q24HR [facility] Stop: 10/07/18 19:59 Last Admin: 08/10/18 20:56 Dose: 250 mls/hr Norepinephrine Bitartrate 4 mg (/ Dextrose) 254 mls @ 0 mls/hr IV TITR PRN; Protocol PRN Reason: BP MAINTENANCE (PER PROTOCOL) Stop: 10/09/18 23:21 Last Titration: 08/11/18 05:00 Dose: 0 mcg/min, 0 mls/hr Nitroglycerin (Nitrostat) 0.4 mg SL Q5MIN PRN PRN Reason: Chest Pain Stop: 10/07/18 19:44 Ondansetron HCl (Zofran) 4 mg IV Q6H PRN PRN Reason: Nausea / Vomiting Stop: 10/08/18 20:54 Last Admin: 08/10/18 22:47 Dose: 4 mg Simvastatin (Zocor) 20 mg PO HS [facility]; Protocol Stop: 10/08/18 20:59 Last Admin: 08/10/18 20:59 Dose: 20 mg General: weak, alert HEENT: NC/AT Neck: Supple Lungs: rales (rales bilatrerally.), ronchi, other (rales max) Cardiovascular: RRR Abdomen: soft Extremities: clear Neurological: no change, alert - Procedures Procedures: Procedures Procedure Code Date INJECT/INFUSE NEC 99.29 02/21/10 Internal Medicine Assmt/Plan - Assessment Assessment: Right-sided pneumonia Non-STEMI Cardiomyopathy with low ejection fraction Congestive heart failure Renal insufficiency Elevated D dimer Elevated liver enzymes Mild urinary tract infectioin H/o iv drug abuse - Plan Plan: Continuation of care Monitor labs, Urinalysis, Chest x-ray Continue present antibiotics and meds as directed Monitor patient closely Continue present case management Nutritional Asmnt/Malnutr-PDOC - Dietary Evaluation Malnutrition Findings (Please click <Entered> for more info): see orders
--- NOTE | 2018-08-11 12:45 | Infectious Disease Prog Note ---
Infectious Disease Subjective - Review of Systems Service Date: 08/11/18 Subjective: Patient was hypotensive and felt dizzy. so he was transferred to the ICU for monitoring. no new change, no fever. Now blood pressure is better maintained with SBP in 90's and denies any dizziness. Infectious Disease Objective - Results Result Diagrams: 08/10/18 05:40 08/11/18 04:15 Recent Labs: Laboratory Last Values WBC 6.7 Th/cmm (4.8-10.8) 08/10/18 05:40 RBC 4.44 Mil/cmm (4.30-5.70) 08/10/18 05:40 Hgb 12.4 gm/dL (12-16) 08/10/18 05:40 Hct 37.5 % (41.0-60) L 08/10/18 05:40 MCV 84.5 fl (80-99) 08/10/18 05:40 MCH 27.9 pg (26.0-30.0) 08/10/18 05:40 MCHC Differential 33.0 pg (28.0-36.0) 08/10/18 05:40 RDW 14.2 % (11.5-20.0) 08/10/18 05:40 Plt Count 212 Th/cmm (150-400) 08/10/18 05:40 MPV 8.3 fl 08/10/18 05:40 Neutrophils % 56.9 % (40.0-80.0) 08/10/18 05:40 Lymphocytes % 27.5 % (20.0-50.0) 08/10/18 05:40 Monocytes % 10.9 % (2.0-10.0) H 08/10/18 05:40 Eosinophils % 4.4 % (0.0-5.0) 08/10/18 05:40 Basophils % 0.3 % (0.0-2.0) 08/10/18 05:40 PT 13.6 SECONDS (9.5-11.5) H 08/08/18 18:10 INR 1.33 (0.5-1.4) 08/08/18 18:10 PTT (Actin FS) 29.2 SECONDS (26.0-38.0) 08/08/18 18:10 D-Dimer 547 ng/mL (100-400) H 08/08/18 18:10 Sodium 137 mEq/L (136-145) 08/11/18 04:15 Potassium 3.9 mEq/L (3.5-5.1) 08/11/18 04:15 Chloride 101 mEq/L (98-107) 08/11/18 04:15 Carbon Dioxide 26.9 mEq/L (21.0-31.0) 08/11/18 04:15 Anion Gap 13.0 (7.0-16.0) 08/11/18 04:15 BUN 27 mg/dL (7-25) H 08/11/18 04:15 Creatinine 1.6 mg/dL (0.7-1.3) H 08/11/18 04:15 Est GFR ( Amer) 58.4 ml/min (>90) 08/11/18 04:15 Est GFR (Non-Af Amer) 48.3 ml/min 08/11/18 04:15 BUN/Creatinine Ratio 16.9 08/11/18 04:15 Glucose 117 mg/dL (70-105) H 08/11/18 04:15 Calcium 8.4 mg/dL (8.6-10.3) L 08/11/18 04:15 Phosphorus 4.0 mg/dL (2.5-5.0) 08/08/18 18:10 Magnesium 1.8 mg/dL (1.9-2.7) L 08/08/18 18:10 Total Bilirubin 1.2 mg/dL (0.3-1.0) H 08/09/18 05:35 AST 85 U/L (13-39) H 08/09/18 05:35 ALT 94 U/L (7-52) H 08/09/18 05:35 Alkaline Phosphatase 83 U/L (34-104) 08/09/18 05:35 Troponin I 0.12 ng/mL (0.01-0.05) H* D 08/09/18 10:00 B-Natriuretic Peptide 671.0 pg/mL (5.0-100.0) H 08/11/18 04:15 Total Protein 6.4 gm/dL (6.0-8.3) 08/09/18 05:35 Albumin 3.6 gm/dL (4.2-5.5) L 08/09/18 05:35 Globulin 2.8 gm/dL 08/09/18 05:35 Albumin/Globulin Ratio 1.3 (1.0-1.8) 08/09/18 05:35 Triglycerides 77 mg/dL (<150) 08/09/18 05:35 Cholesterol 134 mg/dL (<200) 08/09/18 05:35 LDL Cholesterol Direct 122 mg/dL (75-193) 08/09/18 05:35 HDL Cholesterol 23 mg/dL (23-92) 08/09/18 05:35 TSH 1.53 uIU/ml (0.34-5.60) 08/09/18 05:00 Urine Source CLEAN C 08/08/18 19:00 Urine Color LIGHT ORANGE 08/08/18 19:00 Urine Clarity HAZY (CLEAR) 08/08/18 19:00 Urine pH 5.5 (4.6 - 8.0) 08/08/18 19:00 Ur Specific [place] >= 1.030 (1.005-1.030) 08/08/18 19:00 Urine Protein 30 mg/dL (NEGATIVE) H 08/08/18 19:00 Urine Glucose (UA) NEGATIVE mg/dL (NEGATIVE) 08/08/18 19:00 Urine Ketones NEGATIVE mg/dL (NEGATIVE) 08/08/18 19:00 Urine Blood NEGATIVE (NEGATIVE) 08/08/18 19:00 Urine Nitrate NEGATIVE (NEGATIVE) 08/08/18 19:00 Urine Bilirubin MODERATE (NEGATIVE) H 08/08/18 19:00 Urine Ictotest NEGATIVE (NEGATIVE) 08/08/18 19:00 Urine Urobilinogen 2.0 E.U./dL (0.2 - 1.0) 08/08/18 19:00 Ur Leukocyte Esterase TRACE (NEGATIVE) H 08/08/18 19:00 Urine RBC NONE SEEN /hpf (0-5) 08/08/18 19:00 Urine WBC 6-10 /hpf (0-5) 08/08/18 19:00 Ur Epithelial Cells FEW /lpf (FEW) 08/08/18 19:00 Urine Bacteria MODERATE /hpf (NONE SEEN) H 08/08/18 19:00 Urine Opiates Screen NEGATIVE (NEGATIVE) 08/08/18 19:00 Urine Methadone Screen NEGATIVE (NEGATIVE) 08/08/18 19:00 Ur Barbiturates Screen NEGATIVE (NEGATIVE) 08/08/18 19:00 Ur Tricyclics Screen NEGATIVE (NEGATIVE) 08/08/18 19:00 Ur Phencyclidine Scrn NEGATIVE (NEGATIVE) 08/08/18 19:00 Amphetamines Screen POSITIVE (NEGATIVE) H 08/08/18 19:00 U Methamphetamines Scrn POSITIVE (NEGATIVE) H 08/08/18 19:00 U Benzodiazepines Scrn NEGATIVE (NEGATIVE) 08/08/18 19:00 U Cocaine Metab Screen NEGATIVE (NEGATIVE) 08/08/18 19:00 U Cannabinoids Screen POSITIVE (NEGATIVE) H 08/08/18 19:00 HIV 1&2 Antibody Screen NEGATIVE (NEG) 08/11/18 04:15 Influenza A (Rapid) NEG FOR INF A 08/10/18 20:45 Influenza B (Rapid) NEG FOR INF B 08/10/18 20:45 - Physical Exam Vitals and I&O: Vital Signs Temp 97.4 F 08/11/18 11:00 Pulse 77 08/11/18 11:00 Resp 17 08/11/18 11:00 BP 105/72 08/11/18 11:00 Pulse Ox 98 08/11/18 11:00 Intake & Output 08/10/18 08/11/18 08/11/18 18:59 06:59 18:59 Intake Total 950 257.023 Balance 950 257.023 Weight (lbs) 97.522 kg Intake: Intake, IV Amount 50 257.023 Albumin 25% 25gm/100mL 25 100 gm In 100 ml @ 50 mls/hr IV X1 ONE Rx#:[id number] Norepinephrine 4 mg In 57.023 Dextrose 5% 250 ml @ Per Protocol IV TITR PRN Rx#: [id number] cefTRIAXone 1 gm In 50 Sodium Chloride 0.9% 50 ml @ 100 mls/hr IV Q24HR [facility] Rx#:[id number] Oral 900 Other: # Voids 5 # Bowel Movements 1 Stool Characteristics Soft Formed Weight Source Bedscale Active Medications: Current Medications Albuterol Sulfate (Albuterol 2.5mg/3ml Neb Ud) 2.5 mg HHN Q4HRT PRN PRN Reason: Shortness of Breath Stop: 10/08/18 09:25 Aspirin (Aspirin Chewable) 81 mg PO DAILY JOE Stop: 10/09/18 08:59 Last Admin: 02/25/19 08:17 Dose: 81 mg Furosemide (Lasix) 40 mg IVP BID [facility] Stop: 10/08/18 16:59 Last Admin: 08/11/18 08:23 Dose: Not Given Ceftriaxone Sodium 1 gm/ (Sodium Chloride) 50 mls @ 100 mls/hr IV Q24HR [facility] Stop: 10/08/18 15:59 Last Infusion: 08/10/18 18:14 Dose: Infused Azithromycin 500 mg/ Sodium (Chloride) 250 mls @ 250 mls/hr IV Q24HR [facility] Stop: 10/07/18 19:59 Last Admin: 08/10/18 20:56 Dose: 250 mls/hr Norepinephrine Bitartrate 4 mg (/ Dextrose) 254 mls @ 0 mls/hr IV TITR PRN; Protocol PRN Reason: BP MAINTENANCE (PER PROTOCOL) Stop: 10/09/18 23:21 Last Titration: 08/11/18 05:00 Dose: 0 mcg/min, 0 mls/hr Nitroglycerin (Nitrostat) 0.4 mg SL Q5MIN PRN PRN Reason: Chest Pain Stop: 10/07/18 19:44 Ondansetron HCl (Zofran) 4 mg IV Q6H PRN PRN Reason: Nausea / Vomiting Stop: 10/08/18 20:54 Last Admin: 08/10/18 22:47 Dose: 4 mg Simvastatin (Zocor) 20 mg PO HS JOE; Protocol Stop: 10/08/18 20:59 Last Admin: 08/10/18 20:59 Dose: 20 mg General: no acute distress, well developed, well nourished HEENT: atraumatic, normocephalic, PERRLA, EOMI Neck: supple, no thyromegaly Cardiovascular: S1S2, regular, gallops Lungs: clear to auscultation bilaterally, clear to percussion, other (decreased BS) Abdomen: soft, no tender, no distended, no hepatomegaly, no splenomegaly Extremities: no cyanosis, no clubbing, no edema Neurological: awake, alert, oriented Skin: intact - Procedures Procedures: Procedures Procedure Code Date INJECT/INFUSE NEC 99.29 02/21/10 Infectious Disease Assmt/Plan - Problem List Patient Problems: All Active Problems NSTEMI (non-ST elevated myocardial infarction) (Acute) I21.4 POSSIBLE SEIZURE WITH RIGHT EAR PAIN (Acute) - Assessment Assessment: 1. Right-sided pneumonia. 2. Mild urinary tract infection. 3. Congestive heart failure. 4. IV drug abuse. 5. Cardiomyopathy with low ejection fraction. 6. Renal insufficiency. 7. Drug abuse. 8. Elevated liver enzymes. - Plan Plan: Continue the same treatemnt. Abx: Ceftriaxone IV D2, Zithromax D2.
--- NOTE | 2018-08-11 14:24 | Cardiology ---
08/09/2018 ECHOCARDIOGRAM REPORT A patient of Dr. Brizuela. M-MODE ECHOCARDIOGRAM: Mitral valve, anterior leaflet of mitral valve shows decreased excursion, EF velocity. Posterior leaflet of the mitral valve shows decreased excursion. Left ventricle posterior wall showed normal thickness, decreased excursion. Interventricular septum shows normal thickness, decreased excursion, ejection fraction 20%. Left atrium enlarged, 4.3 cm. Aortic root shows normal dimension, normal excursion of aortic leaflets. CONCLUSION: Cardiomyopathy, ejection fraction 20%, left atrial enlargement. 2D ECHO: Long axis view shows enlarged left ventricular cavity with decreased ejection fraction. Mitral valve shows decreased excursion. Left atrium enlarged. Aortic root shows normal dimension, normal excursion of aortic leaflets. Short axis view of mitral valve normal. Short axis view of aortic valve normal. Apical four chamber view shows enlarged left ventricular cavity with decreased ejection fraction, left atrial enlargement, right atrial enlargement, right ventricle normal. CONCLUSION: Left atrial enlargement, right atrial enlargement, cardiomyopathy, ejection fraction 20%. Doppler study shows mild to moderate mitral regurgitation, mild to moderate tricuspid regurgitation, trace pulmonary regurgitation, right ventricular systolic pressure 42 mmHg. JOB# [id number]
[2018-08-11] MEDS: cefTRIAXone 1 GM in Sodium Chloride 0.9% 50 ML IV SCH (15:28)
[2018-08-11] MEDS: Azithromycin 500 MG in Sodium Chloride 0.9% 250 ML IV SCH (20:10)
--- NOTE | 2018-08-12 00:41 | Consultation ---
DATE OF CONSULTATION: 08/11/2018 REASON FOR CONSULTATION: Worsening kidney function, electrolyte imbalance, and fluid management. HISTORY OF PRESENT ILLNESS: This is a 52-year-old male with past medical history of end stage cardiomyopathy who came in because of chest pain. One month prior to admission, the patient was evaluated at [facility] because of the same complaint. His chest pain was associated with shortness of breath and palpitations. Echo done showed 20% ejection fraction, global hypokinesis, and dilated left ventricle. He had anterolateral ischemia on EKG. He was stabilized and discharged. A few hours prior to admission, he again experienced the same chest pain with some dyspnea on exertion. Chest x-ray this time revealed cardiomegaly with no focal consolidation. EKG and troponin of 0.23, 0.19 and 0.12 are suggestive of STEMI. His BNP level was 866, 1080, 8048 and now down to 679. He was started on Lasix. However, his blood pressure dropped at the OU. He was then placed in the ICU for further monitoring and possible pressor support. His BUN/creatinine upon admission was 19/1.5. His BUN/creatinine today was 27/1.6. Denied any nausea and vomiting as well as diarrhea, fever/chills, dysuria, or hematuria. PAST MEDICAL HISTORY: 1. History of methamphetamine abuse. 2. History of smoking. 3. End-stage renal disease. 4. History of congestive heart failure. CURRENT MEDICATIONS: He is currently on albumin, aspirin, azithromycin, carvedilol, ceftriaxone, furosemide, norepinephrine, nitroglycerin, ondansetron, simvastatin. ALLERGIES: No known drug allergies. SOCIAL HISTORY: He still smokes, denies any drinking for the last 20 years. He also consumes intermittently methamphetamine. He used to work as a operations welder. FAMILY HISTORY: Mother, brother, and sister have history of kidney disease. REVIEW OF SYSTEMS: CONSTITUTIONAL: He did complain of occasional weakness. No fever or chills. Appetite had been fair. HEENT: The patient denied any headaches or dizziness. CARDIORESPIRATORY: He came in with chest pain as well as shortness of breath. He had no cough, congestion, palpitations, or diaphoresis. He does have a history of end-stage cardiomyopathy and recurrent CHF in the past. GASTROINTESTINAL: No nausea and vomiting, abdominal pain or cramping, hematemesis, melena, hematochezia, or diarrhea. ENDOCRINE: No diabetes or thyroid abnormalities. MUSCULOSKELETAL: He has occasional arthralgias. GENITOURINARY: He has a history of kidney failure, which may be chronic in nature. Denied any dysuria or hematuria. NEUROPSYCHIATRIC: No syncopal episode or seizure activity. HEMATOLOGIC: He has anemia of chronic disease. PHYSICAL EXAMINATION: GENERAL: The patient is alert, verbal. No further chest pain or shortness of breath, quite comfortable. VITAL SIGNS: His blood pressure is 105/72, pulse 77, temperature 97.4 degrees. SKIN: Poor turgor, warm, no rash, no jaundice appreciated. HEENT: Head normocephalic, atraumatic. Eyes: Extraocular muscles intact. Pupils equal, round, reactive to light and accommodates. Anicteric sclerae. Pale conjunctivae. Nose, midline nasal septum. Mouth: Dry mucosa, adequate dentition. NECK: Supple, no adenopathy, no thyromegaly, no bruits. Trachea palpated in the midline. CHEST AND CARDIOVASCULAR: S1, S2. No rub, murmur, or gallop appreciated. Point of maximal impulse fifth intercostal space, left midclavicular line. No abdominal or femoral bruits appreciated. LUNGS: Equal expansion. No use of accessory muscles. No supraclavicular retractions, few rhonchi, but no rales or wheezes appreciated. ABDOMEN: Globular, soft, positive for bowel sounds. No bruits either diastolic or systolic. RECTAL: Refused. GENITOURINARY: Normal appearing male genitalia. MUSCULOSKELETAL: No effusions present in his joints with adequate range of motion. EXTREMITIES: No evidence of edema, cyanosis or clubbing with palpable femoral, popliteal and dorsalis pedis pulses. NEUROLOGIC: The patient is alert, verbal, motor is 5/5. Cranial nerves 3-12 intact. Sensory intact. LABORATORY DATA: Did reveal white count of 6.7, hemoglobin 12.4, hematocrit 37.5, platelets 212, polys 56.9%. Sodium 137, potassium 3.9, chloride 101, bicarbonate 26.9, BUN 27, creatinine 1.6, glucose is 117, calcium 8.4. ASSESSMENT AND PLAN: 1. Chronic kidney disease, MDRD GFR of 48.6 mL per minute, stage 3. 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 He may also developed prerenal azotemia on top of the chronic kidney disease within the last couple of days. He is currently on high doses of diuretics, with a history of shock and urine, possibly concentrated urine. He did develop hypotension and physical exam of poor skin turgor with dry oral mucosa. His urinalysis was suggestive of very concentrated urine. These factors will support the development of dehydration. His prerenal azotemia may eventually progress to acute tubular injury. 2. Elevated troponin, possibly NSTEMI, but also consider kidney failure with demand ischemia. 3. Elevated BNP from mild acute decompensation of chronic diastolic congestive heart failure. 4. Ischemic cardiomyopathy. 5. Mildly elevated troponin enzymes, possibly from mild hepatic congestion. 6. Dyslipidemia. 7. History of methamphetamine abuse. 8. History of smoking cigarettes. 9. End-stage cardiomyopathy. PLAN: 1. Decrease furosemide because of the patient's clinical status in terms of respiratory distress has improved, chest x-ray still with no focal consolidation, BP has been on the low side. 2. Pressors are as needed. 3. Urine sodium, eosinophils, and creatinine. 4. Request for renal ultrasound. 5. Urine microalbumin to creatinine ratio 6. Follow up electrolytes. Thank you Dr. Brizuela for this consult. We will follow the patient closely with you. JOB# [id number]
[2018-08-12 04:40] LABS: BASOPHILE ABSOLUTE 0.1 Th/cumm (0-0.2); EOSINOPHILE ABSOLUTE 0.4 Th/cmm (0.1-0.4); MEAN PLATELET VOLUME 8.4 fl; RED CELL DISTRIBUTION WIDTH 14.1 % (11.5-20.0)
[2018-08-12 04:49] LABS: % BASOPHILS 0.8 % (0.0-2.0); % EOSINOPHILS 4.7 % (0.0-5.0); % LYMPHOCYTES 31.1 % (20.0-50.0); % NEUTROPHILS 55.4 % (40.0-80.0); HEMATOCRIT 41.4 % (41.0-60); HEMOGLOBIN 13.5 gm/dL (12-16); LYMPHOCYTE ABSOLUTE 2.4 Th/cmm (1.5-3.0); MEAN CELL VOLUME 84.8 fl (80-99); MEAN CORPUSCULAR HEMOGLOBIN 27.7 pg (26.0-30.0); MEAN CORPUSCULAR HGB CONC 32.6 pg (28.0-36.0); MONOCYTE ABSOLUTE 0.6 Th/cmm (0.3-1.0); NEUTROPHILE ABSOLUTE 4.1 Th/cmm (1.8-8.0); PLATELET COUNT 241 Th/cmm (150-400); RED BLOOD COUNT 4.88 Mil/cmm (4.30-5.70); WHITE BLOOD COUNT 7.6 Th/cmm (4.8-10.8)
[2018-08-12 05:19] LABS: ANION GAP 12.7 (7.0-16.0); BUN - UREA NITROGEN 28 mg/dL (7-25); CALCIUM SERUM 8.7 mg/dL (8.6-10.3); CARBON DIOXIDE 26.3 mEq/L (21.0-31.0); CHLORIDE 100 mEq/L (98-107); CREATININE - SERUM 1.2 mg/dL (0.7-1.3); GFR AFRICAN-AMERICAN > 60.0 ml/min (>90); GFR NON AFRICAN-AMERICAN > 60.0 ml/min; GLUCOSE 103 mg/dL (70-105); MAGNESIUM 1.8 mg/dL (1.9-2.7); PHOSPHOROUS 3.7 mg/dL (2.5-5.0); SODIUM SERUM 135 mEq/L (136-145)
--- NOTE | 2018-08-12 08:35 | Diagnostic Imaging Report ---
Renal ultrasound HISTORY: Renal failure COMPARISON: None Technique: Sonography of the kidneys and urinary bladder was performed in multiple planes. FINDINGS: The right kidney measures 12.4 x 4.9 cm. No evidence of focal lesions or hydronephrosis. The left kidney measures 10.0 x 5.8 cm. No evidence of focal lesions or hydronephrosis. There is suboptimal evaluation of the left kidney. There is suggestion of bilateral hydroureter. The prostate gland is heterogeneous and measures 4.1 x 4.7 cm with probable small calcification. Low level echoes are seen in the urinary bladder. No evidence of elevated post residual bladder volumes. IMPRESSION: No evidence of hydronephrosis. There may be mild bilateral hydroureter. Please correlate with clinical findings. If indicated , CT would further clarify. Low-level echoes in the urinary bladder which may be due to debris formation, again correlation should be made with urinalysis levels Mild prominent prostate gland, please correlate clinically.
[2018-08-12] MEDS: Aspirin 81mg Chewable Tab PO SCH (08:44)
--- NOTE | 2018-08-12 11:56 | General Progress Note ---
Subjective - Review of Systems Service Date: 08/12/18 Subjective: Patient has less shortness of breath less swelling in the legs Patient transferred to ICU as patient became hypotensive patient clinically stable condition with transferred to GEO Objective - Results Result Diagrams: 08/12/18 04:10 08/12/18 04:10 Recent Labs: Laboratory Last Values WBC 7.6 Th/cmm (4.8-10.8) 08/12/18 04:10 RBC 4.88 Mil/cmm (4.30-5.70) 08/12/18 04:10 Hgb 13.5 gm/dL (12-16) 08/12/18 04:10 Hct 41.4 % (41.0-60) 08/12/18 04:10 MCV 84.8 fl (80-99) 08/12/18 04:10 MCH 27.7 pg (26.0-30.0) 08/12/18 04:10 MCHC Differential 32.6 pg (28.0-36.0) 08/12/18 04:10 RDW 14.1 % (11.5-20.0) 08/12/18 04:10 Plt Count 241 Th/cmm (150-400) 08/12/18 04:10 MPV 8.4 fl 08/12/18 04:10 Neutrophils % 55.4 % (40.0-80.0) 08/12/18 04:10 Lymphocytes % 31.1 % (20.0-50.0) 08/12/18 04:10 Monocytes % 8.0 % (2.0-10.0) 08/12/18 04:10 Eosinophils % 4.7 % (0.0-5.0) 08/12/18 04:10 Basophils % 0.8 % (0.0-2.0) 08/12/18 04:10 PT 13.6 SECONDS (9.5-11.5) H 08/08/18 18:10 INR 1.33 (0.5-1.4) 08/08/18 18:10 PTT (Actin FS) 29.2 SECONDS (26.0-38.0) 08/08/18 18:10 D-Dimer 547 ng/mL (100-400) H 08/08/18 18:10 Sodium 135 mEq/L (136-145) L 08/12/18 04:10 Potassium 4.0 mEq/L (3.5-5.1) 08/12/18 04:10 Chloride 100 mEq/L (98-107) 08/12/18 04:10 Carbon Dioxide 26.3 mEq/L (21.0-31.0) 08/12/18 04:10 Anion Gap 12.7 (7.0-16.0) 08/12/18 04:10 BUN 28 mg/dL (7-25) H 08/12/18 04:10 Creatinine 1.2 mg/dL (0.7-1.3) 08/12/18 04:10 Est GFR ( Amer) > 60.0 ml/min (>90) 08/12/18 04:10 Est GFR (Non-Af Amer) > 60.0 ml/min 08/12/18 04:10 BUN/Creatinine Ratio 23.3 08/12/18 04:10 Glucose 103 mg/dL (70-105) 08/12/18 04:10 Calcium 8.7 mg/dL (8.6-10.3) 08/12/18 04:10 Phosphorus 3.7 mg/dL (2.5-5.0) 08/12/18 04:10 Magnesium 1.8 mg/dL (1.9-2.7) L 08/12/18 04:10 Total Bilirubin 1.2 mg/dL (0.3-1.0) H 08/09/18 05:35 AST 85 U/L (13-39) H 08/09/18 05:35 ALT 94 U/L (7-52) H 08/09/18 05:35 Alkaline Phosphatase 83 U/L (34-104) 08/09/18 05:35 Troponin I 0.05 ng/mL (0.01-0.05) 08/12/18 04:10 B-Natriuretic Peptide 671.0 pg/mL (5.0-100.0) H 08/11/18 04:15 Total Protein 6.4 gm/dL (6.0-8.3) 08/09/18 05:35 Albumin 3.6 gm/dL (4.2-5.5) L 08/09/18 05:35 Globulin 2.8 gm/dL 08/09/18 05:35 Albumin/Globulin Ratio 1.3 (1.0-1.8) 08/09/18 05:35 Triglycerides 77 mg/dL (<150) 08/09/18 05:35 Cholesterol 134 mg/dL (<200) 08/09/18 05:35 LDL Cholesterol Direct 122 mg/dL (75-193) 08/09/18 05:35 HDL Cholesterol 23 mg/dL (23-92) 08/09/18 05:35 TSH 1.53 uIU/ml (0.34-5.60) 08/09/18 05:00 Urine Source CLEAN C 08/08/18 19:00 Urine Color LIGHT ORANGE 08/08/18 19:00 Urine Clarity HAZY (CLEAR) 08/08/18 19:00 Urine pH 5.5 (4.6 - 8.0) 08/08/18 19:00 Ur Specific [place] >= 1.030 (1.005-1.030) 08/08/18 19:00 Urine Protein 30 mg/dL (NEGATIVE) H 08/08/18 19:00 Urine Glucose (UA) NEGATIVE mg/dL (NEGATIVE) 08/08/18 19:00 Urine Ketones NEGATIVE mg/dL (NEGATIVE) 08/08/18 19:00 Urine Blood NEGATIVE (NEGATIVE) 08/08/18 19:00 Urine Nitrate NEGATIVE (NEGATIVE) 08/08/18 19:00 Urine Bilirubin MODERATE (NEGATIVE) H 08/08/18 19:00 Urine Ictotest NEGATIVE (NEGATIVE) 08/08/18 19:00 Urine Urobilinogen 2.0 E.U./dL (0.2 - 1.0) 08/08/18 19:00 Ur Leukocyte Esterase TRACE (NEGATIVE) H 08/08/18 19:00 Urine RBC NONE SEEN /hpf (0-5) 08/08/18 19:00 Urine WBC 6-10 /hpf (0-5) 08/08/18 19:00 Ur Epithelial Cells FEW /lpf (FEW) 08/08/18 19:00 Urine Bacteria MODERATE /hpf (NONE SEEN) H 08/08/18 19:00 Urine Opiates Screen NEGATIVE (NEGATIVE) 08/08/18 19:00 Urine Methadone Screen NEGATIVE (NEGATIVE) 08/08/18 19:00 Ur Barbiturates Screen NEGATIVE (NEGATIVE) 08/08/18 19:00 Ur Tricyclics Screen NEGATIVE (NEGATIVE) 02/22/19 19:00 Ur Phencyclidine Scrn NEGATIVE (NEGATIVE) 08/08/18 19:00 Amphetamines Screen POSITIVE (NEGATIVE) H 08/08/18 19:00 U Methamphetamines Scrn POSITIVE (NEGATIVE) H 08/08/18 19:00 U Benzodiazepines Scrn NEGATIVE (NEGATIVE) 08/08/18 19:00 U Cocaine Metab Screen NEGATIVE (NEGATIVE) 08/08/18 19:00 U Cannabinoids Screen POSITIVE (NEGATIVE) H 08/08/18 19:00 HIV 1&2 Antibody Screen NEGATIVE (NEG) 08/11/18 04:15 Influenza A (Rapid) NEG FOR INF A 08/10/18 20:45 Influenza B (Rapid) NEG FOR INF B 08/10/18 20:45 - Physical Exam Vitals and I&O: Vital Signs Temp 97.8 F 08/12/18 08:00 Pulse 82 08/12/18 09:00 Resp 16 08/12/18 09:00 BP 116/69 08/12/18 09:00 Pulse Ox 100 08/12/18 09:00 Intake & Output 08/11/18 08/12/18 08/12/18 18:59 06:59 18:59 Intake Total 1200 1050 Output Total 1850 1300 Balance -650 -250 Weight (lbs) 94.347 kg 94.347 kg Intake: Intake, IV Amount 250 Azithromycin 500 mg In 250 Sodium Chloride 0.9% 250 ml @ 250 mls/hr IV Q24HR [facility] Rx#:[id number] Oral 1200 800 Output: Urine 1850 1300 Other: # Bowel Movements 0 0 Stool Characteristics Soft Formed Weight Source Bedscale Bedscale Active Medications: Current Medications Albuterol Sulfate (Albuterol 2.5mg/3ml Neb Ud) 2.5 mg HHN Q4HRT PRN PRN Reason: Shortness of Breath Stop: 10/08/18 09:25 Aspirin (Aspirin Chewable) 81 mg PO DAILY [facility] Stop: 10/09/18 08:59 Last Admin: 08/12/18 08:44 Dose: 81 mg Furosemide (Lasix) 40 mg IVP DAILY [facility] Stop: 10/10/18 14:44 Last Admin: 08/12/18 08:44 Dose: 40 mg Ceftriaxone Sodium 1 gm/ (Sodium Chloride) 50 mls @ 100 mls/hr IV Q24HR [facility]E Stop: 10/08/18 15:59 Last Admin: 08/11/18 15:28 Dose: 100 mls/hr Azithromycin 500 mg/ Sodium (Chloride) 250 mls @ 250 mls/hr IV Q24HR [facility] Stop: 10/07/18 19:59 Last Infusion: 08/11/18 21:20 Dose: Infused Norepinephrine Bitartrate 4 mg (/ Dextrose) 254 mls @ 0 mls/hr IV TITR PRN; Protocol PRN Reason: BP MAINTENANCE (PER PROTOCOL) Stop: 10/09/18 23:21 Last Titration: 08/11/18 05:00 Dose: 0 mcg/min, 0 mls/hr Nitroglycerin (Nitrostat) 0.4 mg SL Q5MIN PRN PRN Reason: Chest Pain Stop: 10/07/18 19:44 Ondansetron HCl (Zofran) 4 mg IV Q6H PRN PRN Reason: Nausea / Vomiting Stop: 10/08/18 20:54 Last Admin: 08/10/18 22:47 Dose: 4 mg Simvastatin (Zocor) 20 mg PO HS JOE; Protocol Stop: 10/08/18 20:59 Last Admin: 08/11/18 20:10 Dose: 20 mg General: Alert, Oriented x3, Mild distress HEENT: Mucous membr. moist/pink Neck: Supple, JVD, +2 carotid pulse wo bruit (10 cm upon sternal angle) Cardiovascular: Regular rate, Normal S1, Normal S2, Systolic murmurs Lungs: Other Abdomen: Bowel sounds, Soft, Obese Extremities: Edema Neurological: Normal gait, Normal speech (r), Strength at 5/5 X4 ext, Normal tone, Cranial nerves 3-12 NL, Reflexes 2+ - Procedures Procedures: Procedures Procedure Code Date INJECT/INFUSE NEC 99.29 02/21/10 Assessment/Plan - Problem List Patient Problems: All Active Problems NSTEMI (non-ST elevated myocardial infarction) (Acute) I21.4 POSSIBLE SEIZURE WITH RIGHT EAR PAIN (Acute) - Assessment Assessment: Congestive heart failure systolic dysfunction and acute Nonischemic cardiomyopathy ejection fraction 20% Non-STEMI myocardial infarction Substance abuse Pneumonia urinary tract infection Elevated liver enzymes Hold Coreg and lisinopril due to hypotension - Plan Plan: Continue Lasix. Hold lisinopril and Coreg due to hypotension
--- NOTE | 2018-08-12 14:53 | General Progress Note ---
Subjective - Review of Systems Service Date: 08/12/18 Subjective: feels better, denied sob, cp Objective - Results Result Diagrams: 08/12/18 04:10 08/12/18 04:10 Recent Labs: Laboratory Last Values WBC 7.6 Th/cmm (4.8-10.8) 08/12/18 04:10 RBC 4.88 Mil/cmm (4.30-5.70) 08/12/18 04:10 Hgb 13.5 gm/dL (12-16) 08/12/18 04:10 Hct 41.4 % (41.0-60) 08/12/18 04:10 MCV 84.8 fl (80-99) 08/12/18 04:10 MCH 27.7 pg (26.0-30.0) 08/12/18 04:10 MCHC Differential 32.6 pg (28.0-36.0) 08/12/18 04:10 RDW 14.1 % (11.5-20.0) 08/12/18 04:10 Plt Count 241 Th/cmm (150-400) 08/12/18 04:10 MPV 8.4 fl 08/12/18 04:10 Neutrophils % 55.4 % (40.0-80.0) 08/12/18 04:10 Lymphocytes % 31.1 % (20.0-50.0) 08/12/18 04:10 Monocytes % 8.0 % (2.0-10.0) 08/12/18 04:10 Eosinophils % 4.7 % (0.0-5.0) 08/12/18 04:10 Basophils % 0.8 % (0.0-2.0) 08/12/18 04:10 PT 13.6 SECONDS (9.5-11.5) H 08/08/18 18:10 INR 1.33 (0.5-1.4) 08/08/18 18:10 PTT (Actin FS) 29.2 SECONDS (26.0-38.0) 08/08/18 18:10 D-Dimer 547 ng/mL (100-400) H 08/08/18 18:10 Sodium 135 mEq/L (136-145) L 08/12/18 04:10 Potassium 4.0 mEq/L (3.5-5.1) 08/12/18 04:10 Chloride 100 mEq/L (98-107) 08/12/18 04:10 Carbon Dioxide 26.3 mEq/L (21.0-31.0) 08/12/18 04:10 Anion Gap 12.7 (7.0-16.0) 08/12/18 04:10 BUN 28 mg/dL (7-25) H 08/12/18 04:10 Creatinine 1.2 mg/dL (0.7-1.3) 08/12/18 04:10 Est GFR ( Amer) > 60.0 ml/min (>90) 08/12/18 04:10 Est GFR (Non-Af Amer) > 60.0 ml/min 08/12/18 04:10 BUN/Creatinine Ratio 23.3 08/12/18 04:10 Glucose 103 mg/dL (70-105) 08/12/18 04:10 Calcium 8.7 mg/dL (8.6-10.3) 08/12/18 04:10 Phosphorus 3.7 mg/dL (2.5-5.0) 08/12/18 04:10 Magnesium 1.8 mg/dL (1.9-2.7) L 08/12/18 04:10 Total Bilirubin 1.2 mg/dL (0.3-1.0) H 08/09/18 05:35 AST 85 U/L (13-39) H 08/09/18 05:35 ALT 94 U/L (7-52) H 08/09/18 05:35 Alkaline Phosphatase 83 U/L (34-104) 08/09/18 05:35 Troponin I 0.04 ng/mL (0.01-0.05) 08/12/18 14:00 B-Natriuretic Peptide 983.0 pg/mL (5.0-100.0) H 08/12/18 04:10 Total Protein 6.4 gm/dL (6.0-8.3) 08/09/18 05:35 Albumin 3.6 gm/dL (4.2-5.5) L 08/09/18 05:35 Globulin 2.8 gm/dL 08/09/18 05:35 Albumin/Globulin Ratio 1.3 (1.0-1.8) 08/09/18 05:35 Triglycerides 77 mg/dL (<150) 08/09/18 05:35 Cholesterol 134 mg/dL (<200) 08/09/18 05:35 LDL Cholesterol Direct 122 mg/dL (75-193) 08/09/18 05:35 HDL Cholesterol 23 mg/dL (23-92) 08/09/18 05:35 TSH 1.53 uIU/ml (0.34-5.60) 08/09/18 05:00 Urine Source CLEAN C 08/08/18 19:00 Urine Color LIGHT ORANGE 08/08/18 19:00 Urine Clarity HAZY (CLEAR) 08/08/18 19:00 Urine pH 5.5 (4.6 - 8.0) 08/08/18 19:00 Ur Specific [place] >= 1.030 (1.005-1.030) 08/08/18 19:00 Urine Protein 30 mg/dL (NEGATIVE) H 08/08/18 19:00 Urine Glucose (UA) NEGATIVE mg/dL (NEGATIVE) 08/08/18 19:00 Urine Ketones NEGATIVE mg/dL (NEGATIVE) 08/08/18 19:00 Urine Blood NEGATIVE (NEGATIVE) 08/08/18 19:00 Urine Nitrate NEGATIVE (NEGATIVE) 08/08/18 19:00 Urine Bilirubin MODERATE (NEGATIVE) H 08/08/18 19:00 Urine Ictotest NEGATIVE (NEGATIVE) 08/08/18 19:00 Urine Urobilinogen 2.0 E.U./dL (0.2 - 1.0) 08/08/18 19:00 Ur Leukocyte Esterase TRACE (NEGATIVE) H 08/08/18 19:00 Urine RBC NONE SEEN /hpf (0-5) 08/08/18 19:00 Urine WBC 6-10 /hpf (0-5) 08/08/18 19:00 Ur Epithelial Cells FEW /lpf (FEW) 08/08/18 19:00 Urine Bacteria MODERATE /hpf (NONE SEEN) H 08/08/18 19:00 Urine Opiates Screen NEGATIVE (NEGATIVE) 08/08/18 19:00 Urine Methadone Screen NEGATIVE (NEGATIVE) 08/08/18 19:00 Ur Barbiturates Screen NEGATIVE (NEGATIVE) 08/08/18 19:00 Ur Tricyclics Screen NEGATIVE (NEGATIVE) 08/08/18 19:00 Ur Phencyclidine Scrn NEGATIVE (NEGATIVE) 08/08/18 19:00 Amphetamines Screen POSITIVE (NEGATIVE) H 08/08/18 19:00 U Methamphetamines Scrn POSITIVE (NEGATIVE) H 08/08/18 19:00 U Benzodiazepines Scrn NEGATIVE (NEGATIVE) 08/08/18 19:00 U Cocaine Metab Screen NEGATIVE (NEGATIVE) 08/08/18 19:00 U Cannabinoids Screen POSITIVE (NEGATIVE) H 08/08/18 19:00 HIV 1&2 Antibody Screen NEGATIVE (NEG) 08/11/18 04:15 Influenza A (Rapid) NEG FOR INF A 08/10/18 20:45 Influenza B (Rapid) NEG FOR INF B 08/10/18 20:45 - Physical Exam Vitals and I&O: Vital Signs Temp 99.6 F 08/12/18 12:00 Pulse 77 08/12/18 12:00 Resp 19 08/12/18 12:00 BP 116/83 08/12/18 12:00 Pulse Ox 98 08/12/18 12:00 Intake & Output 08/11/18 08/12/18 08/12/18 18:59 06:59 18:59 Intake Total 1200 1050 Output Total 1850 1300 Balance -650 -250 Weight (lbs) 94.347 kg 94.347 kg Intake: Intake, IV Amount 250 Azithromycin 500 mg In 250 Sodium Chloride 0.9% 250 ml @ 250 mls/hr IV Q24HR [facility] Rx#:[id number] Oral 1200 800 Output: Urine 1850 1300 Other: # Bowel Movements 0 0 Stool Characteristics Soft Formed Weight Source Bedscale Bedscale Active Medications: Current Medications Albuterol Sulfate (Albuterol 2.5mg/3ml Neb Ud) 2.5 mg HHN Q4HRT PRN PRN Reason: Shortness of Breath Stop: 10/08/18 09:25 Aspirin (Aspirin Chewable) 81 mg PO DAILY [facility] Stop: 10/09/18 08:59 Last Admin: 08/12/18 08:44 Dose: 81 mg Furosemide (Lasix) 40 mg IVP BID [facility] Stop: 10/11/18 16:59 Ceftriaxone Sodium 1 gm/ (Sodium Chloride) 50 mls @ 100 mls/hr IV Q24HR [facility] Stop: 10/08/18 15:59 Last Admin: 08/11/18 15:28 Dose: 100 mls/hr Azithromycin 500 mg/ Sodium (Chloride) 250 mls @ 250 mls/hr IV Q24HR [facility] Stop: 10/07/18 19:59 Last Infusion: 08/11/18 21:20 Dose: Infused Norepinephrine Bitartrate 4 mg (/ Dextrose) 254 mls @ 0 mls/hr IV TITR PRN; Protocol PRN Reason: BP MAINTENANCE (PER PROTOCOL) Stop: 10/09/18 23:21 Last Titration: 08/11/18 05:00 Dose: 0 mcg/min, 0 mls/hr Nitroglycerin (Nitrostat) 0.4 mg SL Q5MIN PRN PRN Reason: Chest Pain Stop: 10/07/18 19:44 Ondansetron HCl (Zofran) 4 mg IV Q6H PRN PRN Reason: Nausea / Vomiting Stop: 10/08/18 20:54 Last Admin: 08/10/18 22:47 Dose: 4 mg Simvastatin (Zocor) 20 mg PO HS [facility]; Protocol Stop: 10/08/18 20:59 Last Admin: 08/11/18 20:10 Dose: 20 mg General: Alert, Oriented x3, No acute distress HEENT: Atraumatic, PERRLA, Mucous membr. moist/pink Neck: Supple, +2 carotid pulse wo bruit (10 cm upon sternal angle) Cardiovascular: Regular rate, Normal S1, Normal S2, Systolic murmurs Lungs: Other (scattered rhonchi) Abdomen: Bowel sounds, Soft, Obese Extremities: no Edema Neurological: Normal gait, Normal speech (r), Strength at 5/5 X4 ext, Normal tone, Cranial nerves 3-12 NL, Reflexes 2+ Skin: no Rash Psych/Mental Status: Mood NL - Procedures Procedures: Procedures Procedure Code Date INJECT/INFUSE NEC 99.29 02/21/10 Assessment/Plan - Problem List Patient Problems: All Active Problems NSTEMI (non-ST elevated myocardial infarction) (Acute) I21.4 POSSIBLE SEIZURE WITH RIGHT EAR PAIN (Acute) - Assessment Assessment: PHU on CKD Elevated Troponin: NSTEMI Elevated BNP 2/2 mild CHF Elevated Liver Enzymes 2/2 Hepatic Congestion Ischemic Cardiomyopathy Dyslipidemia S/P Metanephrine Abuse End Stage CM - Plan Plan: Lab - Result Diagrams 08/12/18 04:10 08/12/18 04:10 Current Medications Albuterol Sulfate (Albuterol 2.5mg/3ml Neb Ud) 2.5 mg HHN Q4HRT PRN PRN Reason: Shortness of Breath Stop: 10/08/18 09:25 Aspirin (Aspirin Chewable) 81 mg PO DAILY [facility] Stop: 10/09/18 08:59 Last Admin: 08/12/18 08:44 Dose: 81 mg Furosemide (Lasix) 40 mg IVP BID [facility] Stop: 10/11/18 16:59 Ceftriaxone Sodium 1 gm/ (Sodium Chloride) 50 mls @ 100 mls/hr IV Q24HR [facility] Stop: 10/08/18 15:59 Last Admin: 08/11/18 15:28 Dose: 100 mls/hr Azithromycin 500 mg/ Sodium (Chloride) 250 mls @ 250 mls/hr IV Q24HR [facility] Stop: 10/07/18 19:59 Last Infusion: 08/11/18 21:20 Dose: Infused Norepinephrine Bitartrate 4 mg (/ Dextrose) 254 mls @ 0 mls/hr IV TITR PRN; Protocol PRN Reason: BP MAINTENANCE (PER PROTOCOL) Stop: 10/09/18 23:21 Last Titration: 08/11/18 05:00 Dose: 0 mcg/min, 0 mls/hr Nitroglycerin (Nitrostat) 0.4 mg SL Q5MIN PRN PRN Reason: Chest Pain Stop: 10/07/18 19:44 Ondansetron HCl (Zofran) 4 mg IV Q6H PRN PRN Reason: Nausea / Vomiting Stop: 10/08/18 20:54 Last Admin: 08/10/18 22:47 Dose: 4 mg Simvastatin (Zocor) 20 mg PO HS [facility]; Protocol Stop: 10/08/18 20:59 Last Admin: 08/11/18 20:10 Dose: 20 mg Lab - Result Diagrams 08/12/18 04:10 08/12/18 04:10 Kidney fnc much improved w/ BUN/CR of 28/1.2 Renal US revealed mild B/L hydroureter but UOP excellent Lasix increased f/u CXR, electrolytes Nutritional Asmnt/Malnutr-PDOC - Dietary Evaluation Malnutrition Findings (Please click <Entered> for more info): Nutritional Asmnt/Malnutrition Start: 08/12/18 13: 25 Text: Status: Complete Freq: Protocol: Document 08/12/18 13:58 [email or web address] (Rec: 08/12/18 14:23 LCHENG [email or web address]) Nutritional Asmnt/Malnutrition Patient General Information Nutritional Screening Moderate Risk Diagnosis mstemi, right hilar PNA Pertinent Medical Hx/Surgical Hx cardiomegaly, cardiomyopathy, renal insufficiency Subjective Information Pt was transfered to ICU d/t hypotension. Per nurse BP now ir fine. pt seen lying in bed at time of visit, awake and alert. Pt stated appetite has been ok, food is good, no question or concer. PO intake 50-100%, mostly 100% per EMR. Current Diet Order/ Nutrition Support low sodium Pertinent Medications lasix Pertinent Labs 08/12 Na 135, BUN 28, mg 1.8 Nutritional Hx/Data Height 1.8 m Height (Calculated Centimeters) 180.3 Current Weight (lbs) 94.347 kg Weight (Calculated Kilograms) 94.3 Weight (Calculated Grams) [address]382.2 [place] Body Weight 172 Body Mass Index (BMI) 29.0 Weight Status Approriate GI Symptoms GI Symptoms None Last BM 08/10 Difficult in: None Skin Integrity/Comment: intact Current %PO Good (75-100%) Estimated Nutritional Goals BEE in Kcals: Using Current wt Calories/Kcals/Kg 23-27 Kcals Calculated 2262-3718 Protein: Using Current wt Protein g/k.8 monitor renal labs Protein Calculated 76 Fluid: ml 2185-2565ml (1ml/kcal) Nutritional Problem 1. Problem Problem altered nutrition related labs Etiology possible renal dysfunction Signs/Symptoms: BUN 28 Malnutrition Alert Is there a minimum of two criteria No selected? Query Text:Check all the applicable criteria. A minimum of two criteria are recommended for diagnosis of either severe or non-severe malnutrition. Malnutrition Related to Morbid Obesity Malnutrition related to morbid obesity No Intervention/Recommendation Comments 1. Continue with low sodium diet as ordered. Monitor renal labs and adjust protein intake as needed. 2. Monitor PO intake, wt, labs and skin integrity 3. F/U as moderate risk in 3-5 days Expected Outcomes/Goals Expected Outcomes/Goals 1. PO intake to meet at least 75% of nutritional needs. 2. Wt stability, skin to remain intact, labs to approach WNL.
[2018-08-12] MEDS: cefTRIAXone 1 GM in Sodium Chloride 0.9% 50 ML IV SCH (16:30)
[2018-08-12 19:43] LABS: EOSINOPHIL SMEAR SOURCE URINE; EOSINOPHILS SMEAR COUNT NONE SEEN (NONE SEEN)
[2018-08-12] MEDS: Azithromycin 500 MG in Sodium Chloride 0.9% 250 ML IV SCH (21:00)
--- NOTE | 2018-08-12 21:23 | Internal Medicine Prog Note ---
Internal Medicine Subjective - Subjective Service Date: 08/12/18 Patient is:: awake, other (pt with multiple problems non.STEMI,renal insufficiency.) Patient Complaints of:: cough Per staff patient has:: no adverse event, no episodes of fall Internal Medicine Objective - Results Result Diagrams: 08/12/18 04:10 08/12/18 04:10 Recent Labs: Laboratory Last Values WBC 7.6 Th/cmm (4.8-10.8) 08/12/18 04:10 RBC 4.88 Mil/cmm (4.30-5.70) 08/12/18 04:10 Hgb 13.5 gm/dL (12-16) 08/12/18 04:10 Hct 41.4 % (41.0-60) 08/12/18 04:10 MCV 84.8 fl (80-99) 08/12/18 04:10 MCH 27.7 pg (26.0-30.0) 08/12/18 04:10 MCHC Differential 32.6 pg (28.0-36.0) 08/12/18 04:10 RDW 14.1 % (11.5-20.0) 08/12/18 04:10 Plt Count 241 Th/cmm (150-400) 08/12/18 04:10 MPV 8.4 fl 08/12/18 04:10 Neutrophils % 55.4 % (40.0-80.0) 08/12/18 04:10 Lymphocytes % 31.1 % (20.0-50.0) 08/12/18 04:10 Monocytes % 8.0 % (2.0-10.0) 08/12/18 04:10 Eosinophils % 4.7 % (0.0-5.0) 08/12/18 04:10 Basophils % 0.8 % (0.0-2.0) 08/12/18 04:10 Eos Smear Source URINE 08/12/18 17:26 Eos Smear Total Cells NONE SEEN (NONE SEEN) 08/12/18 17:26 PT 13.6 SECONDS (9.5-11.5) H 08/08/18 18:10 INR 1.33 (0.5-1.4) 08/08/18 18:10 PTT (Actin FS) 29.2 SECONDS (26.0-38.0) 08/08/18 18:10 D-Dimer 547 ng/mL (100-400) H 08/08/18 18:10 Sodium 135 mEq/L (136-145) L 08/12/18 04:10 Potassium 4.0 mEq/L (3.5-5.1) 08/12/18 04:10 Chloride 100 mEq/L (98-107) 08/12/18 04:10 Carbon Dioxide 26.3 mEq/L (21.0-31.0) 08/12/18 04:10 Anion Gap 12.7 (7.0-16.0) 08/12/18 04:10 BUN 28 mg/dL (7-25) H 08/12/18 04:10 Creatinine 1.2 mg/dL (0.7-1.3) 08/12/18 04:10 Est GFR ( Amer) > 60.0 ml/min (>90) 08/12/18 04:10 Est GFR (Non-Af Amer) > 60.0 ml/min 08/12/18 04:10 BUN/Creatinine Ratio 23.3 08/12/18 04:10 Glucose 103 mg/dL (70-105) 08/12/18 04:10 Calcium 8.7 mg/dL (8.6-10.3) 08/12/18 04:10 Phosphorus 3.7 mg/dL (2.5-5.0) 08/12/18 04:10 Magnesium 1.8 mg/dL (1.9-2.7) L 08/12/18 04:10 Total Bilirubin 1.2 mg/dL (0.3-1.0) H 08/09/18 05:35 AST 85 U/L (13-39) H 08/09/18 05:35 ALT 94 U/L (7-52) H 08/09/18 05:35 Alkaline Phosphatase 83 U/L (34-104) 08/09/18 05:35 Troponin I 0.04 ng/mL (0.01-0.05) 08/12/18 14:00 B-Natriuretic Peptide 983.0 pg/mL (5.0-100.0) H 08/12/18 04:10 Total Protein 6.4 gm/dL (6.0-8.3) 08/09/18 05:35 Albumin 3.6 gm/dL (4.2-5.5) L 08/09/18 05:35 Globulin 2.8 gm/dL 08/09/18 05:35 Albumin/Globulin Ratio 1.3 (1.0-1.8) 08/09/18 05:35 Triglycerides 77 mg/dL (<150) 08/09/18 05:35 Cholesterol 134 mg/dL (<200) 08/09/18 05:35 LDL Cholesterol Direct 122 mg/dL (75-193) 08/09/18 05:35 HDL Cholesterol 23 mg/dL (23-92) 08/09/18 05:35 TSH 1.53 uIU/ml (0.34-5.60) 08/09/18 05:00 Urine Source CLEAN C 08/08/18 19:00 Urine Color LIGHT ORANGE 08/08/18 19:00 Urine Clarity HAZY (CLEAR) 08/08/18 19:00 Urine pH 5.5 (4.6 - 8.0) 08/08/18 19:00 Ur Specific [place] >= 1.030 (1.005-1.030) 08/08/18 19:00 Urine Protein 30 mg/dL (NEGATIVE) H 08/08/18 19:00 Urine Glucose (UA) NEGATIVE mg/dL (NEGATIVE) 08/08/18 19:00 Urine Ketones NEGATIVE mg/dL (NEGATIVE) 08/08/18 19:00 Urine Blood NEGATIVE (NEGATIVE) 08/08/18 19:00 Urine Nitrate NEGATIVE (NEGATIVE) 08/08/18 19:00 Urine Bilirubin MODERATE (NEGATIVE) H 08/08/18 19:00 Urine Ictotest NEGATIVE (NEGATIVE) 08/08/18 19:00 Urine Urobilinogen 2.0 E.U./dL (0.2 - 1.0) 08/08/18 19:00 Ur Leukocyte Esterase TRACE (NEGATIVE) H 08/08/18 19:00 Urine RBC NONE SEEN /hpf (0-5) 08/08/18 19:00 Urine WBC 6-10 /hpf (0-5) 08/08/18 19:00 Ur Epithelial Cells FEW /lpf (FEW) 08/08/18 19:00 Urine Bacteria MODERATE /hpf (NONE SEEN) H 08/08/18 19:00 Ur Random Sodium 95 mmol/L 08/12/18 17:26 Urine Creatinine 27.0 mg/dl (39.0-259.0) L 08/12/18 17:26 Urine Opiates Screen NEGATIVE (NEGATIVE) 08/08/18 19:00 Urine Methadone Screen NEGATIVE (NEGATIVE) 08/08/18 19:00 Ur Barbiturates Screen NEGATIVE (NEGATIVE) 08/08/18 19:00 Ur Tricyclics Screen NEGATIVE (NEGATIVE) 08/08/18 19:00 Ur Phencyclidine Scrn NEGATIVE (NEGATIVE) 08/08/18 19:00 Amphetamines Screen POSITIVE (NEGATIVE) H 08/08/18 19:00 U Methamphetamines Scrn POSITIVE (NEGATIVE) H 08/08/18 19:00 U Benzodiazepines Scrn NEGATIVE (NEGATIVE) 08/08/18 19:00 U Cocaine Metab Screen NEGATIVE (NEGATIVE) 08/08/18 19:00 U Cannabinoids Screen POSITIVE (NEGATIVE) H 08/08/18 19:00 HIV 1&2 Antibody Screen NEGATIVE (NEG) 08/11/18 04:15 Influenza A (Rapid) NEG FOR INF A 08/10/18 20:45 Influenza B (Rapid) NEG FOR INF B 08/10/18 20:45 - Physical Exam Vitals and I&O: Vital Signs Temp 98.2 F 08/12/18 20:00 Pulse 77 08/12/18 20:00 Resp 20 08/12/18 20:00 BP 115/79 08/12/18 20:00 Pulse Ox 100 08/12/18 20:00 Intake & Output 08/12/18 08/12/18 08/13/18 06:59 18:59 06:59 Intake Total 1050 800 Output Total 1300 3000 Balance -250 -2200 Weight (lbs) 94.347 kg 90.9 kg Intake: Intake, IV Amount 250 Azithromycin 500 mg In 250 Sodium Chloride 0.9% 250 ml @ 250 mls/hr IV Q24HR [facility] Rx#:[id number] Oral 800 800 Output: Urine 1300 3000 Other: # Bowel Movements 0 0 Weight Source Bedscale Bedscale Active Medications: Current Medications Albuterol Sulfate (Albuterol 2.5mg/3ml Neb Ud) 2.5 mg HHN Q4HRT PRN PRN Reason: Shortness of Breath Stop: 10/08/18 09:25 Aspirin (Aspirin Chewable) 81 mg PO DAILY [facility] Stop: 10/09/18 08:59 Last Admin: 08/12/18 08:44 Dose: 81 mg Furosemide (Lasix) 40 mg IVP BID [facility] Stop: 10/11/18 16:59 Last Admin: 08/12/18 16:29 Dose: 40 mg Ceftriaxone Sodium 1 gm/ (Sodium Chloride) 50 mls @ 100 mls/hr IV Q24HR [facility] Stop: 10/08/18 15:59 Last Admin: 08/12/18 16:30 Dose: 100 mls/hr Azithromycin 500 mg/ Sodium (Chloride) 250 mls @ 250 mls/hr IV Q24HR [facility] Stop: 10/07/18 19:59 Last Admin: 08/12/18 21:00 Dose: 250 mls/hr Nitroglycerin (Nitrostat) 0.4 mg SL Q5MIN PRN PRN Reason: Chest Pain Stop: 10/07/18 19:44 Ondansetron HCl (Zofran) 4 mg IV Q6H PRN PRN Reason: Nausea / Vomiting Stop: 10/08/18 20:54 Last Admin: 08/10/18 22:47 Dose: 4 mg Simvastatin (Zocor) 20 mg PO HS [facility]; Protocol Stop: 10/08/18 20:59 Last Admin: 08/12/18 21:22 Dose: 20 mg General: weak, alert HEENT: NC/AT Neck: Supple Lungs: rales (rales bilatrerally.), ronchi, other (rales max) Cardiovascular: RRR Abdomen: soft Extremities: clear Neurological: no change, alert - Procedures Procedures: Procedures Procedure Code Date INJECT/INFUSE NEC 99.29 02/21/10 Internal Medicine Assmt/Plan - Assessment Assessment: Right-sided pneumonia Non-STEMI Cardiomyopathy with low ejection fraction Congestive heart failure Renal insufficiency Elevated D dimer Elevated liver enzymes Mild urinary tract infectioin H/o iv drug abuse - Plan Plan: Continuation of care Monitor labs, Urinalysis, Chest x-ray Continue present antibiotics and meds as directed Monitor patient closely Continue present case management Nutritional Asmnt/Malnutr-PDOC - Dietary Evaluation Malnutrition Findings (Please click <Entered> for more info): Nutritional Asmnt/Malnutrition Start: 08/12/18 13: 25 Text: Status: Complete Freq: Protocol: Document 08/12/18 13:58 CARLEE (Rec: 08/12/18 14:23 LCHENG [email or web address]) Nutritional Asmnt/Malnutrition Patient General Information Nutritional Screening Moderate Risk Diagnosis mstemi, right hilar PNA Pertinent Medical Hx/Surgical Hx cardiomegaly, cardiomyopathy, renal insufficiency Subjective Information Pt was transfered to ICU d/t hypotension. Per nurse BP now ir fine. pt seen lying in bed at time of visit, awake and alert. Pt stated appetite has been ok, food is good, no question or concer. PO intake 50-100%, mostly 100% per EMR. Current Diet Order/ Nutrition Support low sodium Pertinent Medications lasix Pertinent Labs 08/12 Na 135, BUN 28, mg 1.8 Nutritional Hx/Data Height 1.8 m Height (Calculated Centimeters) 180.3 Current Weight (lbs) 94.347 kg Weight (Calculated Kilograms) 94.3 Weight (Calculated Grams) 61195.2 [place] Body Weight 172 Body Mass Index (BMI) 29.0 Weight Status Approriate GI Symptoms GI Symptoms None Last BM 08/10 Difficult in: None Skin Integrity/Comment: intact Current %PO Good (75-100%) Estimated Nutritional Goals BEE in Kcals: Using Current wt Calories/Kcals/Kg 23-27 Kcals Calculated 2751-3148 Protein: Using Current wt Protein g/k.8 monitor renal labs Protein Calculated 76 Fluid: ml 2185-2565ml (1ml/kcal) Nutritional Problem 1. Problem Problem altered nutrition related labs Etiology possible renal dysfunction Signs/Symptoms: BUN 28 Malnutrition Alert Is there a minimum of two criteria No selected? Query Text:Check all the applicable criteria. A minimum of two criteria are recommended for diagnosis of either severe or non-severe malnutrition. Malnutrition Related to Morbid Obesity Malnutrition related to morbid obesity No Intervention/Recommendation Comments 1. Continue with low sodium diet as ordered. Monitor renal labs and adjust protein intake as needed. 2. Monitor PO intake, wt, labs and skin integrity 3. F/U as moderate risk in 3-5 days Expected Outcomes/Goals Expected Outcomes/Goals 1. PO intake to meet at least 75% of nutritional needs. 2. Wt stability, skin to remain intact, labs to approach WNL.
[2018-08-13 06:00] LABS: ANION GAP 13.6 (7.0-16.0); BUN - UREA NITROGEN 28 mg/dL (7-25); CALCIUM SERUM 8.8 mg/dL (8.6-10.3); CARBON DIOXIDE 27.1 mEq/L (21.0-31.0); CHLORIDE 99 mEq/L (98-107); CREATININE - SERUM 1.2 mg/dL (0.7-1.3); GFR AFRICAN-AMERICAN > 60.0 ml/min (>90); GFR NON AFRICAN-AMERICAN > 60.0 ml/min; GLUCOSE 104 mg/dL (70-105); POTASSIUM SERUM 3.7 mEq/L (3.5-5.1); SODIUM SERUM 136 mEq/L (136-145)
[2018-08-13] MEDS: Aspirin 81mg Chewable Tab PO SCH (09:26)
--- NOTE | 2018-08-13 09:34 | Diagnostic Imaging Report ---
CHEST X-RAY: AP view INDICATION: Infiltrates COMPARISON: 08/08/2018 FINDINGS: No focal consolidation or effusions. Borderline prominent heart is noted.. Osseous structures are intact. IMPRESSION: No focal airspace consolidation identified.
--- NOTE | 2018-08-13 14:30 | General Progress Note ---
Subjective - Review of Systems Service Date: 08/13/18 Subjective: Patient has less shortness of breath less swelling in the legs Patient transferred to [facility] Objective - Results Result Diagrams: 08/12/18 04:10 08/13/18 04:22 Recent Labs: Laboratory Last Values WBC 7.6 Th/cmm (4.8-10.8) 08/12/18 04:10 RBC 4.88 Mil/cmm (4.30-5.70) 08/12/18 04:10 Hgb 13.5 gm/dL (12-16) 08/12/18 04:10 Hct 41.4 % (41.0-60) 08/12/18 04:10 MCV 84.8 fl (80-99) 08/12/18 04:10 MCH 27.7 pg (26.0-30.0) 08/12/18 04:10 MCHC Differential 32.6 pg (28.0-36.0) 08/12/18 04:10 RDW 14.1 % (11.5-20.0) 08/12/18 04:10 Plt Count 241 Th/cmm (150-400) 08/12/18 04:10 MPV 8.4 fl 08/12/18 04:10 Neutrophils % 55.4 % (40.0-80.0) 08/12/18 04:10 Lymphocytes % 31.1 % (20.0-50.0) 08/12/18 04:10 Monocytes % 8.0 % (2.0-10.0) 08/12/18 04:10 Eosinophils % 4.7 % (0.0-5.0) 08/12/18 04:10 Basophils % 0.8 % (0.0-2.0) 08/12/18 04:10 Eos Smear Source URINE 08/12/18 17:26 Eos Smear Total Cells NONE SEEN (NONE SEEN) 08/12/18 17:26 PT 13.6 SECONDS (9.5-11.5) H 08/08/18 18:10 INR 1.33 (0.5-1.4) 08/08/18 18:10 PTT (Actin FS) 29.2 SECONDS (26.0-38.0) 08/08/18 18:10 D-Dimer 547 ng/mL (100-400) H 08/08/18 18:10 Sodium 136 mEq/L (136-145) 08/13/18 04:22 Potassium 3.7 mEq/L (3.5-5.1) 08/13/18 04:22 Chloride 99 mEq/L (98-107) 08/13/18 04:22 Carbon Dioxide 27.1 mEq/L (21.0-31.0) 08/13/18 04:22 Anion Gap 13.6 (7.0-16.0) 08/13/18 04:22 BUN 28 mg/dL (7-25) H 08/13/18 04:22 Creatinine 1.2 mg/dL (0.7-1.3) 08/13/18 04:22 Est GFR ( Amer) > 60.0 ml/min (>90) 08/13/18 04:22 Est GFR (Non-Af Amer) > 60.0 ml/min 08/13/18 04:22 BUN/Creatinine Ratio 23.3 08/13/18 04:22 Glucose 104 mg/dL (70-105) 08/13/18 04:22 Calcium 8.8 mg/dL (8.6-10.3) 08/13/18 04:22 Phosphorus 3.7 mg/dL (2.5-5.0) 08/12/18 04:10 Magnesium 1.8 mg/dL (1.9-2.7) L 08/12/18 04:10 Total Bilirubin 1.2 mg/dL (0.3-1.0) H 08/09/18 05:35 AST 85 U/L (13-39) H 08/09/18 05:35 ALT 94 U/L (7-52) H 08/09/18 05:35 Alkaline Phosphatase 83 U/L (34-104) 08/09/18 05:35 Troponin I 0.04 ng/mL (0.01-0.05) 08/12/18 14:00 B-Natriuretic Peptide 983.0 pg/mL (5.0-100.0) H 08/12/18 04:10 Total Protein 6.4 gm/dL (6.0-8.3) 08/09/18 05:35 Albumin 3.6 gm/dL (4.2-5.5) L 08/09/18 05:35 Globulin 2.8 gm/dL 08/09/18 05:35 Albumin/Globulin Ratio 1.3 (1.0-1.8) 08/09/18 05:35 Triglycerides 77 mg/dL (<150) 08/09/18 05:35 Cholesterol 134 mg/dL (<200) 08/09/18 05:35 LDL Cholesterol Direct 122 mg/dL (75-193) 08/09/18 05:35 HDL Cholesterol 23 mg/dL (23-92) 08/09/18 05:35 TSH 1.53 uIU/ml (0.34-5.60) 08/09/18 05:00 Urine Source CLEAN C 08/08/18 19:00 Urine Color LIGHT ORANGE 08/08/18 19:00 Urine Clarity HAZY (CLEAR) 08/08/18 19:00 Urine pH 5.5 (4.6 - 8.0) 08/08/18 19:00 Ur Specific [place] >= 1.030 (1.005-1.030) 08/08/18 19:00 Urine Protein 30 mg/dL (NEGATIVE) H 08/08/18 19:00 Urine Glucose (UA) NEGATIVE mg/dL (NEGATIVE) 08/08/18 19:00 Urine Ketones NEGATIVE mg/dL (NEGATIVE) 08/08/18 19:00 Urine Blood NEGATIVE (NEGATIVE) 08/08/18 19:00 Urine Nitrate NEGATIVE (NEGATIVE) 08/08/18 19:00 Urine Bilirubin MODERATE (NEGATIVE) H 08/08/18 19:00 Urine Ictotest NEGATIVE (NEGATIVE) 08/08/18 19:00 Urine Urobilinogen 2.0 E.U./dL (0.2 - 1.0) 08/08/18 19:00 Ur Leukocyte Esterase TRACE (NEGATIVE) H 08/08/18 19:00 Urine RBC NONE SEEN /hpf (0-5) 08/08/18 19:00 Urine WBC 6-10 /hpf (0-5) 08/08/18 19:00 Ur Epithelial Cells FEW /lpf (FEW) 08/08/18 19:00 Urine Bacteria MODERATE /hpf (NONE SEEN) H 08/08/18 19:00 Ur Random Sodium 95 mmol/L 08/12/18 17:26 Urine Creatinine 27.0 mg/dl (39.0-259.0) L 08/12/18 17:26 Microalb/Creat Ratio <14.8 mg/g creat (0.0-30.0) 08/12/18 17:26 Urine Opiates Screen NEGATIVE (NEGATIVE) 08/08/18 19:00 Urine Methadone Screen NEGATIVE (NEGATIVE) 08/08/18 19:00 Ur Barbiturates Screen NEGATIVE (NEGATIVE) 08/08/18 19:00 Ur Tricyclics Screen NEGATIVE (NEGATIVE) 08/08/18 19:00 Ur Phencyclidine Scrn NEGATIVE (NEGATIVE) 08/08/18 19:00 Amphetamines Screen POSITIVE (NEGATIVE) H 08/08/18 19:00 U Methamphetamines Scrn POSITIVE (NEGATIVE) H 08/08/18 19:00 U Benzodiazepines Scrn NEGATIVE (NEGATIVE) 08/08/18 19:00 U Cocaine Metab Screen NEGATIVE (NEGATIVE) 08/08/18 19:00 U Cannabinoids Screen POSITIVE (NEGATIVE) H 08/08/18 19:00 HIV 1&2 Antibody Screen NEGATIVE (NEG) 08/11/18 04:15 Influenza A (Rapid) NEG FOR INF A 08/10/18 20:45 Influenza B (Rapid) NEG FOR INF B 08/10/18 20:45 - Physical Exam Vitals and I&O: Vital Signs Temp 97.7 F 08/13/18 12:00 Pulse 73 08/13/18 12:00 Resp 18 08/13/18 12:00 BP 99/70 08/13/18 12:00 Pulse Ox 95 08/13/18 12:00 Intake & Output 08/12/18 08/13/18 08/13/18 18:59 06:59 18:59 Intake Total 800 250 Output Total 3000 Balance -2200 250 Weight (lbs) 90.9 kg Intake: Intake, IV Amount 250 Azithromycin 500 mg In 250 Sodium Chloride 0.9% 250 ml @ 250 mls/hr IV Q24HR JOE Rx#:[id number] Oral 800 Output: Urine 3000 Other: # Bowel Movements 0 Weight Source Bedscale Active Medications: Current Medications Albuterol Sulfate (Albuterol 2.5mg/3ml Neb Ud) 2.5 mg HHN Q4HRT PRN PRN Reason: Shortness of Breath Stop: 10/08/18 09:25 Aspirin (Aspirin Chewable) 81 mg PO DAILY JOE Stop: 10/09/18 08:59 Last Admin: 08/13/18 09:26 Dose: 81 mg Furosemide (Lasix) 40 mg IVP BID [facility] Stop: 10/11/18 16:59 Last Admin: 08/13/18 09:26 Dose: 40 mg Ceftriaxone Sodium 1 gm/ (Sodium Chloride) 50 mls @ 100 mls/hr IV Q24HR JOE Stop: 10/08/18 15:59 Last Admin: 08/12/18 16:30 Dose: 100 mls/hr Azithromycin 500 mg/ Sodium (Chloride) 250 mls @ 250 mls/hr IV Q24HR JOE Stop: 10/07/18 19:59 Last Infusion: 08/12/18 22:00 Dose: Infused Nitroglycerin (Nitrostat) 0.4 mg SL Q5MIN PRN PRN Reason: Chest Pain Stop: 10/07/18 19:44 Ondansetron HCl (Zofran) 4 mg IV Q6H PRN PRN Reason: Nausea / Vomiting Stop: 10/08/18 20:54 Last Admin: 08/10/18 22:47 Dose: 4 mg Simvastatin (Zocor) 20 mg PO HS JOE; Protocol Stop: 10/08/18 20:59 Last Admin: 08/12/18 21:22 Dose: 20 mg General: Alert, Oriented x3, No acute distress HEENT: Atraumatic, PERRLA, Mucous membr. moist/pink Neck: Supple, +2 carotid pulse wo bruit (10 cm upon sternal angle) Cardiovascular: Regular rate, Normal S1, Normal S2, Systolic murmurs Lungs: Other (scattered rhonchi) Abdomen: Bowel sounds, Soft, Obese Extremities: no Edema Neurological: Normal gait, Normal speech (r), Strength at 5/5 X4 ext, Normal tone, Cranial nerves 3-12 NL, Reflexes 2+ Skin: no Rash Psych/Mental Status: Mood NL - Procedures Procedures: Procedures Procedure Code Date INJECT/INFUSE NEC 99.29 02/21/10 Assessment/Plan - Problem List Patient Problems: All Active Problems NSTEMI (non-ST elevated myocardial infarction) (Acute) I21.4 POSSIBLE SEIZURE WITH RIGHT EAR PAIN (Acute) - Assessment Assessment: Congestive heart failure systolic dysfunction and acute Nonischemic cardiomyopathy ejection fraction 20% Non-STEMI myocardial infarction Substance abuse Pneumonia urinary tract infection Elevated liver enzymes Hold Coreg and lisinopril due to hypotension - Plan Plan: Continue Lasix. Consider LTAC Hold lisinopril and Coreg due to hypotension Nutritional Asmnt/Malnutr-PDOC - Dietary Evaluation Malnutrition Findings (Please click <Entered> for more info): Nutritional Asmnt/Malnutrition Start: 08/12/18 13: 25 Text: Status: Complete Freq: Protocol: Document 08/12/18 13:58 LCHENG (Rec: 08/12/18 14:23 LCHENG [email or web address]) Nutritional Asmnt/Malnutrition Patient General Information Nutritional Screening Moderate Risk Diagnosis mstemi, right hilar PNA Pertinent Medical Hx/Surgical Hx cardiomegaly, cardiomyopathy, renal insufficiency Subjective Information Pt was transfered to ICU d/t hypotension. Per nurse BP now ir fine. pt seen lying in bed at time of visit, awake and alert. Pt stated appetite has been ok, food is good, no question or concer. PO intake 50-100%, mostly 100% per EMR. Current Diet Order/ Nutrition Support low sodium Pertinent Medications lasix Pertinent Labs 08/12 Na 135, BUN 28, mg 1.8 Nutritional Hx/Data Height 1.8 m Height (Calculated Centimeters) 180.3 Current Weight (lbs) 94.347 kg Weight (Calculated Kilograms) 94.3 Weight (Calculated Grams) 81762.2 [place] Body Weight 172 Body Mass Index (BMI) 29.0 Weight Status Approriate GI Symptoms GI Symptoms None Last BM 08/10 Difficult in: None Skin Integrity/Comment: intact Current %PO Good (75-100%) Estimated Nutritional Goals BEE in Kcals: Using Current wt Calories/Kcals/Kg 23-27 Kcals Calculated 1828-1927 Protein: Using Current wt Protein g/k.8 monitor renal labs Protein Calculated 76 Fluid: ml 2185-2565ml (1ml/kcal) Nutritional Problem 1. Problem Problem altered nutrition related labs Etiology possible renal dysfunction Signs/Symptoms: BUN 28 Malnutrition Alert Is there a minimum of two criteria No selected? Query Text:Check all the applicable criteria. A minimum of two criteria are recommended for diagnosis of either severe or non-severe malnutrition. Malnutrition Related to Morbid Obesity Malnutrition related to morbid obesity No Intervention/Recommendation Comments 1. Continue with low sodium diet as ordered. Monitor renal labs and adjust protein intake as needed. 2. Monitor PO intake, wt, labs and skin integrity 3. F/U as moderate risk in 3-5 days Expected Outcomes/Goals Expected Outcomes/Goals 1. PO intake to meet at least 75% of nutritional needs. 2. Wt stability, skin to remain intact, labs to approach WNL.
[2018-08-13] MEDS: cefTRIAXone 1 GM in Sodium Chloride 0.9% 50 ML IV SCH (15:52)
--- NOTE | 2018-08-13 16:04 | General Progress Note ---
Subjective - Review of Systems Service Date: 08/13/18 Subjective: feels better, denied sob, cp Objective - Results Result Diagrams: 08/12/18 04:10 08/13/18 04:22 Recent Labs: Laboratory Last Values WBC 7.6 Th/cmm (4.8-10.8) 08/12/18 04:10 RBC 4.88 Mil/cmm (4.30-5.70) 08/12/18 04:10 Hgb 13.5 gm/dL (12-16) 08/12/18 04:10 Hct 41.4 % (41.0-60) 08/12/18 04:10 MCV 84.8 fl (80-99) 08/12/18 04:10 MCH 27.7 pg (26.0-30.0) 08/12/18 04:10 MCHC Differential 32.6 pg (28.0-36.0) 08/12/18 04:10 RDW 14.1 % (11.5-20.0) 08/12/18 04:10 Plt Count 241 Th/cmm (150-400) 08/12/18 04:10 MPV 8.4 fl 08/12/18 04:10 Neutrophils % 55.4 % (40.0-80.0) 08/12/18 04:10 Lymphocytes % 31.1 % (20.0-50.0) 08/12/18 04:10 Monocytes % 8.0 % (2.0-10.0) 08/12/18 04:10 Eosinophils % 4.7 % (0.0-5.0) 08/12/18 04:10 Basophils % 0.8 % (0.0-2.0) 08/12/18 04:10 Eos Smear Source URINE 08/12/18 17:26 Eos Smear Total Cells NONE SEEN (NONE SEEN) 08/12/18 17:26 PT 13.6 SECONDS (9.5-11.5) H 08/08/18 18:10 INR 1.33 (0.5-1.4) 08/08/18 18:10 PTT (Actin FS) 29.2 SECONDS (26.0-38.0) 08/08/18 18:10 D-Dimer 547 ng/mL (100-400) H 08/08/18 18:10 Sodium 136 mEq/L (136-145) 08/13/18 04:22 Potassium 3.7 mEq/L (3.5-5.1) 08/13/18 04:22 Chloride 99 mEq/L (98-107) 08/13/18 04:22 Carbon Dioxide 27.1 mEq/L (21.0-31.0) 08/13/18 04:22 Anion Gap 13.6 (7.0-16.0) 08/13/18 04:22 BUN 28 mg/dL (7-25) H 08/13/18 04:22 Creatinine 1.2 mg/dL (0.7-1.3) 08/13/18 04:22 Est GFR ( Amer) > 60.0 ml/min (>90) 08/13/18 04:22 Est GFR (Non-Af Amer) > 60.0 ml/min 08/13/18 04:22 BUN/Creatinine Ratio 23.3 08/13/18 04:22 Glucose 104 mg/dL (70-105) 08/13/18 04:22 Calcium 8.8 mg/dL (8.6-10.3) 08/13/18 04:22 Phosphorus 3.7 mg/dL (2.5-5.0) 08/12/18 04:10 Magnesium 1.8 mg/dL (1.9-2.7) L 08/12/18 04:10 Total Bilirubin 1.2 mg/dL (0.3-1.0) H 08/09/18 05:35 AST 85 U/L (13-39) H 08/09/18 05:35 ALT 94 U/L (7-52) H 08/09/18 05:35 Alkaline Phosphatase 83 U/L (34-104) 08/09/18 05:35 Troponin I 0.04 ng/mL (0.01-0.05) 08/12/18 14:00 B-Natriuretic Peptide 983.0 pg/mL (5.0-100.0) H 08/12/18 04:10 Total Protein 6.4 gm/dL (6.0-8.3) 08/09/18 05:35 Albumin 3.6 gm/dL (4.2-5.5) L 08/09/18 05:35 Globulin 2.8 gm/dL 08/09/18 05:35 Albumin/Globulin Ratio 1.3 (1.0-1.8) 08/09/18 05:35 Triglycerides 77 mg/dL (<150) 08/09/18 05:35 Cholesterol 134 mg/dL (<200) 08/09/18 05:35 LDL Cholesterol Direct 122 mg/dL (75-193) 08/09/18 05:35 HDL Cholesterol 23 mg/dL (23-92) 08/09/18 05:35 TSH 1.53 uIU/ml (0.34-5.60) 08/09/18 05:00 Urine Source CLEAN C 08/08/18 19:00 Urine Color LIGHT ORANGE 08/08/18 19:00 Urine Clarity HAZY (CLEAR) 08/08/18 19: Urine pH 5.5 (4.6 - 8.0) 08/08/18 19:00 Ur Specific [place] >= 1.030 (1.005-1.030) 08/08/18 19:00 Urine Protein 30 mg/dL (NEGATIVE) H 08/08/18 19:00 Urine Glucose (UA) NEGATIVE mg/dL (NEGATIVE) 08/08/18 19:00 Urine Ketones NEGATIVE mg/dL (NEGATIVE) 08/08/18 19:00 Urine Blood NEGATIVE (NEGATIVE) 08/08/18 19:00 Urine Nitrate NEGATIVE (NEGATIVE) 08/08/18 19:00 Urine Bilirubin MODERATE (NEGATIVE) H 08/08/18 19:00 Urine Ictotest NEGATIVE (NEGATIVE) 08/08/18 19:00 Urine Urobilinogen 2.0 E.U./dL (0.2 - 1.0) 08/08/18 19:00 Ur Leukocyte Esterase TRACE (NEGATIVE) H 08/08/18 19:00 Urine RBC NONE SEEN /hpf (0-5) 08/08/18 19:00 Urine WBC 6-10 /hpf (0-5) 08/08/18 19:00 Ur Epithelial Cells FEW /lpf (FEW) 08/08/18 19:00 Urine Bacteria MODERATE /hpf (NONE SEEN) H 08/08/18 19:00 Ur Random Sodium 95 mmol/L 08/12/18 17:26 Urine Creatinine 27.0 mg/dl (39.0-259.0) L 08/12/18 17:26 Microalb/Creat Ratio <14.8 mg/g creat (0.0-30.0) 08/12/18 17:26 Urine Opiates Screen NEGATIVE (NEGATIVE) 08/08/18 19:00 Urine Methadone Screen NEGATIVE (NEGATIVE) 08/08/18 19:00 Ur Barbiturates Screen NEGATIVE (NEGATIVE) 08/08/18 19:00 Ur Tricyclics Screen NEGATIVE (NEGATIVE) 08/08/18 19:00 Ur Phencyclidine Scrn NEGATIVE (NEGATIVE) 08/08/18 19:00 Amphetamines Screen POSITIVE (NEGATIVE) H 08/08/18 19:00 U Methamphetamines Scrn POSITIVE (NEGATIVE) H 08/08/18 19:00 U Benzodiazepines Scrn NEGATIVE (NEGATIVE) 08/08/18 19:00 U Cocaine Metab Screen NEGATIVE (NEGATIVE) 08/08/18 19:00 U Cannabinoids Screen POSITIVE (NEGATIVE) H 08/08/18 19:00 HIV 1&2 Antibody Screen NEGATIVE (NEG) 08/11/18 04:15 Influenza A (Rapid) NEG FOR INF A 08/10/18 20:45 Influenza B (Rapid) NEG FOR INF B 08/10/18 20:45 - Physical Exam Vitals and I&O: Vital Signs Temp 97.7 F 08/13/18 12:00 Pulse 73 08/13/18 12:00 Resp 18 08/13/18 14:39 BP 99/70 08/13/18 12:00 Pulse Ox 95 08/13/18 12:00 Intake & Output 08/12/18 08/13/18 08/13/18 18:59 06:59 18:59 Intake Total 850 250 Output Total 3000 Balance -2150 250 Weight (lbs) 90.9 kg Intake: Intake, IV Amount 50 250 Azithromycin 500 mg In 250 Sodium Chloride 0.9% 250 ml @ 250 mls/hr IV Q24HR JOE Rx#:[id number] cefTRIAXone 1 gm In 50 Sodium Chloride 0.9% 50 ml @ 100 mls/hr IV Q24HR JOE Rx#:[id number] Oral 800 Output: Urine 3000 Other: # Bowel Movements 0 Weight Source Bedscale Active Medications: Current Medications Albuterol Sulfate (Albuterol 2.5mg/3ml Neb Ud) 2.5 mg HHN Q4HRT PRN PRN Reason: Shortness of Breath Stop: 10/08/18 09:25 Aspirin (Aspirin Chewable) 81 mg PO DAILY [facility] Stop: 10/09/18 08:59 Last Admin: 08/13/18 09:26 Dose: 81 mg Furosemide (Lasix) 40 mg IVP BID [facility] Stop: 10/11/18 16:59 Last Admin: 08/13/18 09:26 Dose: 40 mg Ceftriaxone Sodium 1 gm/ (Sodium Chloride) 50 mls @ 100 mls/hr IV Q24HR JOE Stop: 10/08/18 15:59 Last Admin: 08/13/18 15:52 Dose: 100 mls/hr Azithromycin 500 mg/ Sodium (Chloride) 250 mls @ 250 mls/hr IV Q24HR JOE Stop: 10/07/18 19:59 Last Infusion: 08/12/18 22:00 Dose: Infused Nitroglycerin (Nitrostat) 0.4 mg SL Q5MIN PRN PRN Reason: Chest Pain Stop: 10/07/18 19:44 Ondansetron HCl (Zofran) 4 mg IV Q6H PRN PRN Reason: Nausea / Vomiting Stop: 10/08/18 20:54 Last Admin: 08/10/18 22:47 Dose: 4 mg Simvastatin (Zocor) 20 mg PO HS JOE; Protocol Stop: 10/08/18 20:59 Last Admin: 08/12/18 21:22 Dose: 20 mg General: Alert, Oriented x3, No acute distress HEENT: Atraumatic, PERRLA, Mucous membr. moist/pink Neck: Supple, +2 carotid pulse wo bruit (10 cm upon sternal angle) Cardiovascular: Regular rate, Normal S1, Normal S2, Systolic murmurs Lungs: Other (scattered rhonchi) Abdomen: Bowel sounds, Soft, Obese Extremities: no Edema Neurological: Normal gait, Normal speech (r), Strength at 5/5 X4 ext, Normal tone, Cranial nerves 3-12 NL, Reflexes 2+ Skin: no Rash Psych/Mental Status: Mood NL - Procedures Procedures: Procedures Procedure Code Date INJECT/INFUSE NEC 99.29 02/21/10 Assessment/Plan - Problem List Patient Problems: All Active Problems NSTEMI (non-ST elevated myocardial infarction) (Acute) I21.4 POSSIBLE SEIZURE WITH RIGHT EAR PAIN (Acute) - Assessment Assessment: PHU on CKD Elevated Troponin: NSTEMI Elevated BNP 2/2 mild CHF Elevated Liver Enzymes 2/2 Hepatic Congestion Ischemic Cardiomyopathy Dyslipidemia S/P Metanephrine Abuse End Stage CM - Plan Plan: Lab - Result Diagrams 08/12/18 04:10 08/12/18 04:10 Current Medications Albuterol Sulfate (Albuterol 2.5mg/3ml Neb Ud) 2.5 mg HHN Q4HRT PRN PRN Reason: Shortness of Breath Stop: 10/08/18 09:25 Aspirin (Aspirin Chewable) 81 mg PO DAILY JOE Stop: 10/09/18 08:59 Last Admin: 08/12/18 08:44 Dose: 81 mg Furosemide (Lasix) 40 mg IVP BID JOE Stop: 10/11/18 16:59 Ceftriaxone Sodium 1 gm/ (Sodium Chloride) 50 mls @ 100 mls/hr IV Q24HR JOE Stop: 10/08/18 15:59 Last Admin: 08/11/18 15:28 Dose: 100 mls/hr Azithromycin 500 mg/ Sodium (Chloride) 250 mls @ 250 mls/hr IV Q24HR JOE Stop: 10/07/18 19:59 Last Infusion: 08/11/18 21:20 Dose: Infused Norepinephrine Bitartrate 4 mg (/ Dextrose) 254 mls @ 0 mls/hr IV TITR PRN; Protocol PRN Reason: BP MAINTENANCE (PER PROTOCOL) Stop: 10/09/18 23:21 Last Titration: 08/11/18 05:00 Dose: 0 mcg/min, 0 mls/hr Nitroglycerin (Nitrostat) 0.4 mg SL Q5MIN PRN PRN Reason: Chest Pain Stop: 10/07/18 19:44 Ondansetron HCl (Zofran) 4 mg IV Q6H PRN PRN Reason: Nausea / Vomiting Stop: 10/08/18 20:54 Last Admin: 08/10/18 22:47 Dose: 4 mg Simvastatin (Zocor) 20 mg PO HS JOE; Protocol Stop: 10/08/18 20:59 Last Admin: 08/11/18 20:10 Dose: 20 mg Lab - Result Diagrams 08/12/18 04:10 08/13/18 04:22 Kidney fnc stable w/ BUN/CR of 28/1.2 Renal US revealed mild B/L hydroureter but UOP excellent Lasix per cardiology CXR: persistent no focal consolidation Nutritional Asmnt/Malnutr-PDOC - Dietary Evaluation Malnutrition Findings (Please click <Entered> for more info): Nutritional Asmnt/Malnutrition Start: 08/12/18 13: 25 Text: Status: Complete Freq: Protocol: Document 08/12/18 13:58 LCCHELY (Rec: 08/12/18 14:23 BETTINACHELY [email or web address]) Nutritional Asmnt/Malnutrition Patient General Information Nutritional Screening Moderate Risk Diagnosis mstemi, right hilar PNA Pertinent Medical Hx/Surgical Hx cardiomegaly, cardiomyopathy, renal insufficiency Subjective Information Pt was transfered to ICU d/t hypotension. Per nurse BP now ir fine. pt seen lying in bed at time of visit, awake and alert. Pt stated appetite has been ok, food is good, no question or concer. PO intake 50-100%, mostly 100% per EMR. Current Diet Order/ Nutrition Support low sodium Pertinent Medications lasix Pertinent Labs 08/12 Na 135, BUN 28, mg 1.8 Nutritional Hx/Data Height 1.8 m Height (Calculated Centimeters) 180.3 Current Weight (lbs) 94.347 kg Weight (Calculated Kilograms) 94.3 Weight (Calculated Grams) 99434.2 [place] Body Weight 172 Body Mass Index (BMI) 29.0 Weight Status Approriate GI Symptoms GI Symptoms None Last BM 08/10 Difficult in: None Skin Integrity/Comment: intact Current %PO Good (75-100%) Estimated Nutritional Goals BEE in Kcals: Using Current wt Calories/Kcals/Kg 23-27 Kcals Calculated 3094-3932 Protein: Using Current wt Protein g/k.8 monitor renal labs Protein Calculated 76 Fluid: ml 2185-2565ml (1ml/kcal) Nutritional Problem 1. Problem Problem altered nutrition related labs Etiology possible renal dysfunction Signs/Symptoms: BUN 28 Malnutrition Alert Is there a minimum of two criteria No selected? Query Text:Check all the applicable criteria. A minimum of two criteria are recommended for diagnosis of either severe or non-severe malnutrition. Malnutrition Related to Morbid Obesity Malnutrition related to morbid obesity No Intervention/Recommendation Comments 1. Continue with low sodium diet as ordered. Monitor renal labs and adjust protein intake as needed. 2. Monitor PO intake, wt, labs and skin integrity 3. F/U as moderate risk in 3-5 days Expected Outcomes/Goals Expected Outcomes/Goals 1. PO intake to meet at least 75% of nutritional needs. 2. Wt stability, skin to remain intact, labs to approach WNL.
--- NOTE | 2018-08-13 17:20 | Internal Medicine Prog Note ---
Internal Medicine Subjective - Subjective Service Date: 08/13/18 Patient seen and examined:: chart reviewed Patient is:: awake, other (pt with multiple problems non.STEMI,renal insufficiency.) Patient Complaints of:: pain with urination Per staff patient has:: no adverse event, no episodes of fall, other (mild swelling of lower extremities.) Internal Medicine Objective - Results Result Diagrams: 08/12/18 04:10 08/13/18 04:22 Recent Labs: Laboratory Last Values WBC 7.6 Th/cmm (4.8-10.8) 08/12/18 04:10 RBC 4.88 Mil/cmm (4.30-5.70) 08/12/18 04:10 Hgb 13.5 gm/dL (12-16) 08/12/18 04:10 Hct 41.4 % (41.0-60) 08/12/18 04:10 MCV 84.8 fl (80-99) 08/12/18 04:10 MCH 27.7 pg (26.0-30.0) 08/12/18 04:10 MCHC Differential 32.6 pg (28.0-36.0) 08/12/18 04:10 RDW 14.1 % (11.5-20.0) 08/12/18 04:10 Plt Count 241 Th/cmm (150-400) 08/12/18 04:10 MPV 8.4 fl 08/12/18 04:10 Neutrophils % 55.4 % (40.0-80.0) 08/12/18 04:10 Lymphocytes % 31.1 % (20.0-50.0) 08/12/18 04:10 Monocytes % 8.0 % (2.0-10.0) 08/12/18 04:10 Eosinophils % 4.7 % (0.0-5.0) 08/12/18 04:10 Basophils % 0.8 % (0.0-2.0) 08/12/18 04:10 Eos Smear Source URINE 08/12/18 17:26 Eos Smear Total Cells NONE SEEN (NONE SEEN) 08/12/18 17:26 PT 13.6 SECONDS (9.5-11.5) H 08/08/18 18:10 INR 1.33 (0.5-1.4) 08/08/18 18:10 PTT (Actin FS) 29.2 SECONDS (26.0-38.0) 08/08/18 18:10 D-Dimer 547 ng/mL (100-400) H 08/08/18 18:10 Sodium 136 mEq/L (136-145) 08/13/18 04:22 Potassium 3.7 mEq/L (3.5-5.1) 08/13/18 04:22 Chloride 99 mEq/L (98-107) 08/13/18 04:22 Carbon Dioxide 27.1 mEq/L (21.0-31.0) 08/13/18 04:22 Anion Gap 13.6 (7.0-16.0) 08/13/18 04:22 BUN 28 mg/dL (7-25) H 08/13/18 04:22 Creatinine 1.2 mg/dL (0.7-1.3) 08/13/18 04:22 Est GFR ( Amer) > 60.0 ml/min (>90) 08/13/18 04:22 Est GFR (Non-Af Amer) > 60.0 ml/min 08/13/18 04:22 BUN/Creatinine Ratio 23.3 08/13/18 04:22 Glucose 104 mg/dL (70-105) 08/13/18 04:22 Calcium 8.8 mg/dL (8.6-10.3) 08/13/18 04:22 Phosphorus 3.7 mg/dL (2.5-5.0) 08/12/18 04:10 Magnesium 1.8 mg/dL (1.9-2.7) L 08/12/18 04:10 Total Bilirubin 1.2 mg/dL (0.3-1.0) H 08/09/18 05:35 AST 85 U/L (13-39) H 08/09/18 05:35 ALT 94 U/L (7-52) H 08/09/18 05:35 Alkaline Phosphatase 83 U/L (34-104) 08/09/18 05:35 Troponin I 0.04 ng/mL (0.01-0.05) 08/12/18 14:00 B-Natriuretic Peptide 983.0 pg/mL (5.0-100.0) H 08/12/18 04:10 Total Protein 6.4 gm/dL (6.0-8.3) 08/09/18 05:35 Albumin 3.6 gm/dL (4.2-5.5) L 08/09/18 05:35 Globulin 2.8 gm/dL 08/09/18 05:35 Albumin/Globulin Ratio 1.3 (1.0-1.8) 08/09/18 05:35 Triglycerides 77 mg/dL (<150) 08/09/18 05:35 Cholesterol 134 mg/dL (<200) 08/09/18 05:35 LDL Cholesterol Direct 122 mg/dL (75-193) 08/09/18 05:35 HDL Cholesterol 23 mg/dL (23-92) 08/09/18 05:35 TSH 1.53 uIU/ml (0.34-5.60) 08/09/18 05:00 Urine Source CLEAN C 08/08/18 19:00 Urine Color LIGHT ORANGE 08/08/18 19:00 Urine Clarity HAZY (CLEAR) 08/08/18 19:00 Urine pH 5.5 (4.6 - 8.0) 08/08/18 19:00 Ur Specific [place] >= 1.030 (1.005-1.030) 08/08/18 19:00 Urine Protein 30 mg/dL (NEGATIVE) H 08/08/18 19:00 Urine Glucose (UA) NEGATIVE mg/dL (NEGATIVE) 08/08/18 19:00 Urine Ketones NEGATIVE mg/dL (NEGATIVE) 08/08/18 19:00 Urine Blood NEGATIVE (NEGATIVE) 08/08/18 19:00 Urine Nitrate NEGATIVE (NEGATIVE) 08/08/18 19:00 Urine Bilirubin MODERATE (NEGATIVE) H 08/08/18 19:00 Urine Ictotest NEGATIVE (NEGATIVE) 08/08/18 19:00 Urine Urobilinogen 2.0 E.U./dL (0.2 - 1.0) 08/08/18 19:00 Ur Leukocyte Esterase TRACE (NEGATIVE) H 08/08/18 19:00 Urine RBC NONE SEEN /hpf (0-5) 08/08/18 19:00 Urine WBC 6-10 /hpf (0-5) 08/08/18 19:00 Ur Epithelial Cells FEW /lpf (FEW) 08/08/18 19:00 Urine Bacteria MODERATE /hpf (NONE SEEN) H 08/08/18 19:00 Ur Random Sodium 95 mmol/L 08/12/18 17:26 Urine Creatinine 27.0 mg/dl (39.0-259.0) L 08/12/18 17:26 Microalb/Creat Ratio <14.8 mg/g creat (0.0-30.0) 08/12/18 17:26 Urine Opiates Screen NEGATIVE (NEGATIVE) 08/08/18 19:00 Urine Methadone Screen NEGATIVE (NEGATIVE) 08/08/18 19:00 Ur Barbiturates Screen NEGATIVE (NEGATIVE) 08/08/18 19:00 Ur Tricyclics Screen NEGATIVE (NEGATIVE) 08/08/18 19:00 Ur Phencyclidine Scrn NEGATIVE (NEGATIVE) 08/08/18 19:00 Amphetamines Screen POSITIVE (NEGATIVE) H 08/08/18 19:00 U Methamphetamines Scrn POSITIVE (NEGATIVE) H 08/08/18 19:00 U Benzodiazepines Scrn NEGATIVE (NEGATIVE) 08/08/18 19:00 U Cocaine Metab Screen NEGATIVE (NEGATIVE) 08/08/18 19:00 U Cannabinoids Screen POSITIVE (NEGATIVE) H 08/08/18 19:00 HIV 1&2 Antibody Screen NEGATIVE (NEG) 08/11/18 04:15 Influenza A (Rapid) NEG FOR INF A 08/10/18 20:45 Influenza B (Rapid) NEG FOR INF B 08/10/18 20:45 - Physical Exam Vitals and I&O: Vital Signs Temp 98.1 F 08/13/18 16:00 Pulse 77 08/13/18 16:00 Resp 19 08/13/18 16:00 BP 99/70 08/13/18 16:03 Pulse Ox 97 08/13/18 16:00 Intake & Output 08/12/18 08/13/18 08/13/18 18:59 06:59 18:59 Intake Total 850 250 Output Total 3000 Balance -2150 250 Weight (lbs) 90.9 kg Intake: Intake, IV Amount 50 250 Azithromycin 500 mg In 250 Sodium Chloride 0.9% 250 ml @ 250 mls/hr IV Q24HR [facility] Rx#:[id number] cefTRIAXone 1 gm In 50 Sodium Chloride 0.9% 50 ml @ 100 mls/hr IV Q24HR [facility] Rx#:[id number] Oral 800 Output: Urine 3000 Other: # Bowel Movements 0 Weight Source Bedscale Active Medications: Current Medications Albuterol Sulfate (Albuterol 2.5mg/3ml Neb Ud) 2.5 mg HHN Q4HRT PRN PRN Reason: Shortness of Breath Stop: 10/08/18 09:25 Aspirin (Aspirin Chewable) 81 mg PO DAILY [facility] Stop: 10/09/18 08:59 Last Admin: 08/13/18 09:26 Dose: 81 mg Furosemide (Lasix) 40 mg IVP BID [facility] Stop: 10/11/18 16:59 Last Admin: 08/13/18 16:03 Dose: 40 mg Ceftriaxone Sodium 1 gm/ (Sodium Chloride) 50 mls @ 100 mls/hr IV Q24HR [facility] Stop: 10/08/18 15:59 Last Admin: 08/13/18 15:52 Dose: 100 mls/hr Azithromycin 500 mg/ Sodium (Chloride) 250 mls @ 250 mls/hr IV Q24HR [facility] Stop: 10/07/18 19:59 Last Infusion: 08/12/18 22:00 Dose: Infused Nitroglycerin (Nitrostat) 0.4 mg SL Q5MIN PRN PRN Reason: Chest Pain Stop: 10/07/18 19:44 Ondansetron HCl (Zofran) 4 mg IV Q6H PRN PRN Reason: Nausea / Vomiting Stop: 10/08/18 20:54 Last Admin: 08/10/18 22:47 Dose: 4 mg Simvastatin (Zocor) 20 mg PO HS [facility]; Protocol Stop: 10/08/18 20:59 Last Admin: 08/12/18 21:22 Dose: 20 mg General: weak, alert HEENT: NC/AT Neck: Supple Lungs: rales (rales bilatrerally.), ronchi, other (rales max) Cardiovascular: RRR Abdomen: soft Extremities: clear Neurological: no change, alert - Procedures Procedures: Procedures Procedure Code Date INJECT/INFUSE NEC 99.29 02/21/10 Internal Medicine Assmt/Plan - Assessment Assessment: Right-sided pneumonia Non-STEMI Cardiomyopathy with low ejection fraction Congestive heart failure Renal insufficiency Elevated D dimer Elevated liver enzymes Mild urinary tract infectioin H/o iv drug abuse - Plan Plan: Continuation of care Monitor labs, Urinalysis, Chest x-ray Continue present antibiotics and meds as directed Monitor patient closely Continue present treatment plan. Nutritional Asmnt/Malnutr-PDOC - Dietary Evaluation Malnutrition Findings (Please click <Entered> for more info): Nutritional Asmnt/Malnutrition Start: 08/12/18 13: 25 Text: Status: Complete Freq: Protocol: Document 08/12/18 13:58 LCCHELY (Rec: 08/12/18 14:23 BETTINACHELY [email or web address]) Nutritional Asmnt/Malnutrition Patient General Information Nutritional Screening Moderate Risk Diagnosis mstemi, right hilar PNA Pertinent Medical Hx/Surgical Hx cardiomegaly, cardiomyopathy, renal insufficiency Subjective Information Pt was transfered to ICU d/t hypotension. Per nurse BP now ir fine. pt seen lying in bed at time of visit, awake and alert. Pt stated appetite has been ok, food is good, no question or concer. PO intake 50-100%, mostly 100% per EMR. Current Diet Order/ Nutrition Support low sodium Pertinent Medications lasix Pertinent Labs 08/12 Na 135, BUN 28, mg 1.8 Nutritional Hx/Data Height 1.8 m Height (Calculated Centimeters) 180.3 Current Weight (lbs) 94.347 kg Weight (Calculated Kilograms) 94.3 Weight (Calculated Grams) 58402.2 [place] Body Weight 172 Body Mass Index (BMI) 29.0 Weight Status Approriate GI Symptoms GI Symptoms None Last BM 08/10 Difficult in: None Skin Integrity/Comment: intact Current %PO Good (75-100%) Estimated Nutritional Goals BEE in Kcals: Using Current wt Calories/Kcals/Kg 23-27 Kcals Calculated 3761-1474 Protein: Using Current wt Protein g/k.8 monitor renal labs Protein Calculated 76 Fluid: ml 2185-2565ml (1ml/kcal) Nutritional Problem 1. Problem Problem altered nutrition related labs Etiology possible renal dysfunction Signs/Symptoms: BUN 28 Malnutrition Alert Is there a minimum of two criteria No selected? Query Text:Check all the applicable criteria. A minimum of two criteria are recommended for diagnosis of either severe or non-severe malnutrition. Malnutrition Related to Morbid Obesity Malnutrition related to morbid obesity No Intervention/Recommendation Comments 1. Continue with low sodium diet as ordered. Monitor renal labs and adjust protein intake as needed. 2. Monitor PO intake, wt, labs and skin integrity 3. F/U as moderate risk in 3-5 days Expected Outcomes/Goals Expected Outcomes/Goals 1. PO intake to meet at least 75% of nutritional needs. 2. Wt stability, skin to remain intact, labs to approach WNL.
[2018-08-13] MEDS: Azithromycin 500 MG in Sodium Chloride 0.9% 250 ML IV SCH (20:27)
--- NOTE | 2018-08-13 23:51 | Infectious Disease Prog Note ---
Infectious Disease Subjective - Review of Systems Service Date: 08/13/18 Subjective: doing well, no fever. Infectious Disease Objective - Results Result Diagrams: 08/12/18 04:10 08/13/18 04:22 Recent Labs: Laboratory Last Values WBC 7.6 Th/cmm (4.8-10.8) 08/12/18 04:10 RBC 4.88 Mil/cmm (4.30-5.70) 08/12/18 04:10 Hgb 13.5 gm/dL (12-16) 08/12/18 04:10 Hct 41.4 % (41.0-60) 08/12/18 04:10 MCV 84.8 fl (80-99) 08/12/18 04:10 MCH 27.7 pg (26.0-30.0) 08/12/18 04:10 MCHC Differential 32.6 pg (28.0-36.0) 08/12/18 04:10 RDW 14.1 % (11.5-20.0) 08/12/18 04:10 Plt Count 241 Th/cmm (150-400) 08/12/18 04:10 MPV 8.4 fl 08/12/18 04:10 Neutrophils % 55.4 % (40.0-80.0) 08/12/18 04:10 Lymphocytes % 31.1 % (20.0-50.0) 08/12/18 04:10 Monocytes % 8.0 % (2.0-10.0) 08/12/18 04:10 Eosinophils % 4.7 % (0.0-5.0) 08/12/18 04:10 Basophils % 0.8 % (0.0-2.0) 08/12/18 04:10 Eos Smear Source URINE 08/12/18 17:26 Eos Smear Total Cells NONE SEEN (NONE SEEN) 08/12/18 17:26 PT 13.6 SECONDS (9.5-11.5) H 08/08/18 18:10 INR 1.33 (0.5-1.4) 08/08/18 18:10 PTT (Actin FS) 29.2 SECONDS (26.0-38.0) 08/08/18 18:10 D-Dimer 547 ng/mL (100-400) H 08/08/18 18:10 Sodium 136 mEq/L (136-145) 08/13/18 04:22 Potassium 3.7 mEq/L (3.5-5.1) 08/13/18 04:22 Chloride 99 mEq/L (98-107) 08/13/18 04:22 Carbon Dioxide 27.1 mEq/L (21.0-31.0) 08/13/18 04:22 Anion Gap 13.6 (7.0-16.0) 08/13/18 04:22 BUN 28 mg/dL (7-25) H 08/13/18 04:22 Creatinine 1.2 mg/dL (0.7-1.3) 08/13/18 04:22 Est GFR ( Amer) > 60.0 ml/min (>90) 08/13/18 04:22 Est GFR (Non-Af Amer) > 60.0 ml/min 08/13/18 04:22 BUN/Creatinine Ratio 23.3 08/13/18 04:22 Glucose 104 mg/dL (70-105) 08/13/18 04:22 Calcium 8.8 mg/dL (8.6-10.3) 08/13/18 04:22 Phosphorus 3.7 mg/dL (2.5-5.0) 08/12/18 04:10 Magnesium 1.8 mg/dL (1.9-2.7) L 08/12/18 04:10 Total Bilirubin 1.2 mg/dL (0.3-1.0) H 08/09/18 05:35 AST 85 U/L (13-39) H 08/09/18 05:35 ALT 94 U/L (7-52) H 08/09/18 05:35 Alkaline Phosphatase 83 U/L (34-104) 08/09/18 05:35 Troponin I 0.04 ng/mL (0.01-0.05) 08/12/18 14:00 B-Natriuretic Peptide 983.0 pg/mL (5.0-100.0) H 08/12/18 04:10 Total Protein 6.4 gm/dL (6.0-8.3) 08/09/18 05:35 Albumin 3.6 gm/dL (4.2-5.5) L 08/09/18 05:35 Globulin 2.8 gm/dL 08/09/18 05:35 Albumin/Globulin Ratio 1.3 (1.0-1.8) 08/09/18 05:35 Triglycerides 77 mg/dL (<150) 08/09/18 05:35 Cholesterol 134 mg/dL (<200) 08/09/18 05:35 LDL Cholesterol Direct 122 mg/dL (75-193) 08/09/18 05:35 HDL Cholesterol 23 mg/dL (23-92) 08/09/18 05:35 TSH 1.53 uIU/ml (0.34-5.60) 08/09/18 05:00 Urine Source CLEAN C 08/08/18 19:00 Urine Color LIGHT ORANGE 08/08/18 19:00 Urine Clarity HAZY (CLEAR) 08/08/18 19: Urine pH 5.5 (4.6 - 8.0) 08/08/18 19:00 Ur Specific [place] >= 1.030 (1.005-1.030) 08/08/18 19:00 Urine Protein 30 mg/dL (NEGATIVE) H 08/08/18 19:00 Urine Glucose (UA) NEGATIVE mg/dL (NEGATIVE) 08/08/18 19:00 Urine Ketones NEGATIVE mg/dL (NEGATIVE) 08/08/18 19:00 Urine Blood NEGATIVE (NEGATIVE) 08/08/18 19:00 Urine Nitrate NEGATIVE (NEGATIVE) 08/08/18 19:00 Urine Bilirubin MODERATE (NEGATIVE) H 08/08/18 19:00 Urine Ictotest NEGATIVE (NEGATIVE) 08/08/18 19:00 Urine Urobilinogen 2.0 E.U./dL (0.2 - 1.0) 08/08/18 19:00 Ur Leukocyte Esterase TRACE (NEGATIVE) H 08/08/18 19:00 Urine RBC NONE SEEN /hpf (0-5) 08/08/18 19:00 Urine WBC 6-10 /hpf (0-5) 08/08/18 19:00 Ur Epithelial Cells FEW /lpf (FEW) 08/08/18 19:00 Urine Bacteria MODERATE /hpf (NONE SEEN) H 08/08/18 19:00 Ur Random Sodium 95 mmol/L 08/12/18 17:26 Urine Creatinine 27.0 mg/dl (39.0-259.0) L 08/12/18 17:26 Microalb/Creat Ratio <14.8 mg/g creat (0.0-30.0) 08/12/18 17:26 Urine Opiates Screen NEGATIVE (NEGATIVE) 08/08/18 19:00 Urine Methadone Screen NEGATIVE (NEGATIVE) 08/08/18 19:00 Ur Barbiturates Screen NEGATIVE (NEGATIVE) 08/08/18 19:00 Ur Tricyclics Screen NEGATIVE (NEGATIVE) 08/08/18 19:00 Ur Phencyclidine Scrn NEGATIVE (NEGATIVE) 08/08/18 19:00 Amphetamines Screen POSITIVE (NEGATIVE) H 08/08/18 19:00 U Methamphetamines Scrn POSITIVE (NEGATIVE) H 08/08/18 19:00 U Benzodiazepines Scrn NEGATIVE (NEGATIVE) 08/08/18 19:00 U Cocaine Metab Screen NEGATIVE (NEGATIVE) 08/08/18 19:00 U Cannabinoids Screen POSITIVE (NEGATIVE) H 08/08/18 19:00 HIV 1&2 Antibody Screen NEGATIVE (NEG) 08/11/18 04:15 Influenza A (Rapid) NEG FOR INF A 08/10/18 20:45 Influenza B (Rapid) NEG FOR INF B 08/10/18 20:45 - Physical Exam Vitals and I&O: Vital Signs Temp 98.4 F 08/13/18 20:00 Pulse 80 08/13/18 20:00 Resp 18 08/13/18 20:00 BP 111/79 08/13/18 20:00 Pulse Ox 96 08/13/18 20:00 Intake & Output 08/13/18 08/13/18 08/14/18 06:59 18:59 06:59 Intake Total 250 800 250 Output Total 2000 Balance 250 -1200 250 Weight (lbs) 86.202 kg Intake: Intake, IV Amount 250 250 Azithromycin 500 mg In 250 250 Sodium Chloride 0.9% 250 ml @ 250 mls/hr IV Q24HR [facility] Rx#:[id number] Oral 800 Output: Urine 2000 Other: # Bowel Movements 0 Weight Source Bedscale Active Medications: Current Medications Albuterol Sulfate (Albuterol 2.5mg/3ml Neb Ud) 2.5 mg HHN Q4HRT PRN PRN Reason: Shortness of Breath Stop: 10/08/18 09:25 Aspirin (Aspirin Chewable) 81 mg PO DAILY [facility] Stop: 10/09/18 08:59 Last Admin: 08/13/18 09:26 Dose: 81 mg Furosemide (Lasix) 40 mg IVP BID [facility] Stop: 10/11/18 16:59 Last Admin: 08/13/18 16:03 Dose: 40 mg Ceftriaxone Sodium 1 gm/ (Sodium Chloride) 50 mls @ 100 mls/hr IV Q24HR [facility] Stop: 10/08/18 15:59 Last Admin: 08/13/18 15:52 Dose: 100 mls/hr Azithromycin 500 mg/ Sodium (Chloride) 250 mls @ 250 mls/hr IV Q24HR [facility] Stop: 10/07/18 19:59 Last Infusion: 08/13/18 21:27 Dose: Infused Nitroglycerin (Nitrostat) 0.4 mg SL Q5MIN PRN PRN Reason: Chest Pain Stop: 10/07/18 19:44 Ondansetron HCl (Zofran) 4 mg IV Q6H PRN PRN Reason: Nausea / Vomiting Stop: 10/08/18 20:54 Last Admin: 08/10/18 22:47 Dose: 4 mg Simvastatin (Zocor) 20 mg PO HS [facility]; Protocol Stop: 10/08/18 20:59 Last Admin: 08/13/18 20:28 Dose: 20 mg General: no acute distress, well developed, well nourished HEENT: atraumatic, normocephalic, PERRLA Neck: supple, no thyromegaly, no lymphadenopathy, no rigid, no lines Cardiovascular: S1S2, regular Lungs: clear to auscultation bilaterally, clear to percussion Abdomen: soft, no tender, no distended, no hepatomegaly Extremities: no cyanosis, no clubbing, no edema Neurological: awake, alert, oriented Skin: intact - Procedures Procedures: Procedures Procedure Code Date INJECT/INFUSE NEC 99.29 02/21/10 Infectious Disease Assmt/Plan - Problem List Patient Problems: All Active Problems NSTEMI (non-ST elevated myocardial infarction) (Acute) I21.4 POSSIBLE SEIZURE WITH RIGHT EAR PAIN (Acute) - Assessment Assessment: 1. Right-sided pneumonia. 2. Mild urinary tract infection. 3. Congestive heart failure. 4. IV drug abuse. 5. Cardiomyopathy with low ejection fraction. 6. Renal insufficiency. 7. Drug abuse. 8. Elevated liver enzymes. - Plan Plan: Continue the same treatemnt. Abx: Ceftriaxone IV D4/10, Zithromax D4/5. Nutritional Asmnt/Malnutr-PDOC - Dietary Evaluation Malnutrition Findings (Please click <Entered> for more info): Nutritional Asmnt/Malnutrition Start: 08/12/18 13: 25 Text: Status: Complete Freq: Protocol: Document 08/12/18 13:58 LCHENG (Rec: 08/12/18 14:23 STEFANIEG [email or web address]) Nutritional Asmnt/Malnutrition Patient General Information Nutritional Screening Moderate Risk Diagnosis mstemi, right hilar PNA Pertinent Medical Hx/Surgical Hx cardiomegaly, cardiomyopathy, renal insufficiency Subjective Information Pt was transfered to ICU d/t hypotension. Per nurse BP now ir fine. pt seen lying in bed at time of visit, awake and alert. Pt stated appetite has been ok, food is good, no question or concer. PO intake 50-100%, mostly 100% per EMR. Current Diet Order/ Nutrition Support low sodium Pertinent Medications lasix Pertinent Labs 08/12 Na 135, BUN 28, mg 1.8 Nutritional Hx/Data Height 1.8 m Height (Calculated Centimeters) 180.3 Current Weight (lbs) 94.347 kg Weight (Calculated Kilograms) 94.3 Weight (Calculated Grams) 72317.2 [place] Body Weight 172 Body Mass Index (BMI) 29.0 Weight Status Approriate GI Symptoms GI Symptoms None Last BM 08/10 Difficult in: None Skin Integrity/Comment: intact Current %PO Good (75-100%) Estimated Nutritional Goals BEE in Kcals: Using Current wt Calories/Kcals/Kg 23-27 Kcals Calculated 8298-8114 Protein: Using Current wt Protein g/k.8 monitor renal labs Protein Calculated 76 Fluid: ml 2185-2565ml (1ml/kcal) Nutritional Problem 1. Problem Problem altered nutrition related labs Etiology possible renal dysfunction Signs/Symptoms: BUN 28 Malnutrition Alert Is there a minimum of two criteria No selected? Query Text:Check all the applicable criteria. A minimum of two criteria are recommended for diagnosis of either severe or non-severe malnutrition. Malnutrition Related to Morbid Obesity Malnutrition related to morbid obesity No Intervention/Recommendation Comments 1. Continue with low sodium diet as ordered. Monitor renal labs and adjust protein intake as needed. 2. Monitor PO intake, wt, labs and skin integrity 3. F/U as moderate risk in 3-5 days Expected Outcomes/Goals Expected Outcomes/Goals 1. PO intake to meet at least 75% of nutritional needs. 2. Wt stability, skin to remain intact, labs to approach WNL.
[2018-08-14 07:06] LABS: ANION GAP 12.7 (7.0-16.0); BUN - UREA NITROGEN 26 mg/dL (7-25); CALCIUM SERUM 9.1 mg/dL (8.6-10.3); CARBON DIOXIDE 28.5 mEq/L (21.0-31.0); CHLORIDE 100 mEq/L (98-107); CREATININE - SERUM 1.3 mg/dL (0.7-1.3); GFR AFRICAN-AMERICAN > 60.0 ml/min (>90); GFR NON AFRICAN-AMERICAN > 60.0 ml/min; GLUCOSE 107 mg/dL (70-105); POTASSIUM SERUM 4.2 mEq/L (3.5-5.1); SODIUM SERUM 137 mEq/L (136-145)
[2018-08-14] MEDS: Aspirin 81mg Chewable Tab PO SCH (08:53)
--- NOTE | 2018-08-14 10:58 | General Progress Note ---
Subjective - Review of Systems Service Date: 08/14/18 Subjective: Patient has less shortness of breath less swelling in the legs Patient transferred to [facility] Objective - Results Result Diagrams: 08/12/18 04:10 08/14/18 06:15 Recent Labs: Laboratory Last Values WBC 7.6 Th/cmm (4.8-10.8) 08/12/18 04:10 RBC 4.88 Mil/cmm (4.30-5.70) 08/12/18 04:10 Hgb 13.5 gm/dL (12-16) 08/12/18 04:10 Hct 41.4 % (41.0-60) 08/12/18 04:10 MCV 84.8 fl (80-99) 08/12/18 04:10 MCH 27.7 pg (26.0-30.0) 08/12/18 04:10 MCHC Differential 32.6 pg (28.0-36.0) 08/12/18 04:10 RDW 14.1 % (11.5-20.0) 08/12/18 04:10 Plt Count 241 Th/cmm (150-400) 08/12/18 04:10 MPV 8.4 fl 08/12/18 04:10 Neutrophils % 55.4 % (40.0-80.0) 08/12/18 04:10 Lymphocytes % 31.1 % (20.0-50.0) 08/12/18 04:10 Monocytes % 8.0 % (2.0-10.0) 08/12/18 04:10 Eosinophils % 4.7 % (0.0-5.0) 08/12/18 04:10 Basophils % 0.8 % (0.0-2.0) 08/12/18 04:10 Eos Smear Source URINE 08/12/18 17:26 Eos Smear Total Cells NONE SEEN (NONE SEEN) 08/12/18 17:26 PT 13.6 SECONDS (9.5-11.5) H 08/08/18 18:10 INR 1.33 (0.5-1.4) 08/08/18 18:10 PTT (Actin FS) 29.2 SECONDS (26.0-38.0) 08/08/18 18:10 D-Dimer 547 ng/mL (100-400) H 08/08/18 18:10 Sodium 137 mEq/L (136-145) 08/14/18 06:15 Potassium 4.2 mEq/L (3.5-5.1) 08/14/18 06:15 Chloride 100 mEq/L (98-107) 08/14/18 06:15 Carbon Dioxide 28.5 mEq/L (21.0-31.0) 08/14/18 06:15 Anion Gap 12.7 (7.0-16.0) 08/14/18 06:15 BUN 26 mg/dL (7-25) H 08/14/18 06:15 Creatinine 1.3 mg/dL (0.7-1.3) 08/14/18 06:15 Est GFR ( Amer) > 60.0 ml/min (>90) 08/14/18 06:15 Est GFR (Non-Af Amer) > 60.0 ml/min 08/14/18 06:15 BUN/Creatinine Ratio 20.0 08/14/18 06:15 Glucose 107 mg/dL (70-105) H 08/14/18 06:15 Calcium 9.1 mg/dL (8.6-10.3) 08/14/18 06:15 Phosphorus 3.7 mg/dL (2.5-5.0) 08/12/18 04:10 Magnesium 1.8 mg/dL (1.9-2.7) L 08/12/18 04:10 Total Bilirubin 1.2 mg/dL (0.3-1.0) H 08/09/18 05:35 AST 85 U/L (13-39) H 08/09/18 05:35 ALT 94 U/L (7-52) H 08/09/18 05:35 Alkaline Phosphatase 83 U/L (34-104) 08/09/18 05:35 Troponin I 0.04 ng/mL (0.01-0.05) 08/12/18 14:00 B-Natriuretic Peptide 599.0 pg/mL (5.0-100.0) H 08/14/18 06:15 Total Protein 6.4 gm/dL (6.0-8.3) 08/09/18 05:35 Albumin 3.6 gm/dL (4.2-5.5) L 08/09/18 05:35 Globulin 2.8 gm/dL 08/09/18 05:35 Albumin/Globulin Ratio 1.3 (1.0-1.8) 08/09/18 05:35 Triglycerides 77 mg/dL (<150) 08/09/18 05:35 Cholesterol 134 mg/dL (<200) 08/09/18 05:35 LDL Cholesterol Direct 122 mg/dL (75-193) 08/09/18 05:35 HDL Cholesterol 23 mg/dL (23-92) 08/09/18 05:35 TSH 1.53 uIU/ml (0.34-5.60) 08/09/18 05:00 Urine Source CLEAN C 08/08/18 19:00 Urine Color LIGHT ORANGE 08/08/18 19:00 Urine Clarity HAZY (CLEAR) 08/08/18 19:00 Urine pH 5.5 (4.6 - 8.0) 08/08/18 19:00 Ur Specific [place] >= 1.030 (1.005-1.030) 08/08/18 19:00 Urine Protein 30 mg/dL (NEGATIVE) H 08/08/18 19:00 Urine Glucose (UA) NEGATIVE mg/dL (NEGATIVE) 08/08/18 19:00 Urine Ketones NEGATIVE mg/dL (NEGATIVE) 08/08/18 19:00 Urine Blood NEGATIVE (NEGATIVE) 08/08/18 19:00 Urine Nitrate NEGATIVE (NEGATIVE) 08/08/18 19:00 Urine Bilirubin MODERATE (NEGATIVE) H 08/08/18 19:00 Urine Ictotest NEGATIVE (NEGATIVE) 08/08/18 19:00 Urine Urobilinogen 2.0 E.U./dL (0.2 - 1.0) 08/08/18 19:00 Ur Leukocyte Esterase TRACE (NEGATIVE) H 08/08/18 19:00 Urine RBC NONE SEEN /hpf (0-5) 08/08/18 19:00 Urine WBC 6-10 /hpf (0-5) 08/08/18 19:00 Ur Epithelial Cells FEW /lpf (FEW) 08/08/18 19:00 Urine Bacteria MODERATE /hpf (NONE SEEN) H 08/08/18 19:00 Ur Random Sodium 95 mmol/L 08/12/18 17:26 Urine Creatinine 27.0 mg/dl (39.0-259.0) L 02/26/19 17:26 Microalb/Creat Ratio <14.8 mg/g creat (0.0-30.0) 08/12/18 17:26 Urine Opiates Screen NEGATIVE (NEGATIVE) 08/08/18 19:00 Urine Methadone Screen NEGATIVE (NEGATIVE) 08/08/18 19:00 Ur Barbiturates Screen NEGATIVE (NEGATIVE) 08/08/18 19:00 Ur Tricyclics Screen NEGATIVE (NEGATIVE) 08/08/18 19:00 Ur Phencyclidine Scrn NEGATIVE (NEGATIVE) 08/08/18 19:00 Amphetamines Screen POSITIVE (NEGATIVE) H 08/08/18 19:00 U Methamphetamines Scrn POSITIVE (NEGATIVE) H 08/08/18 19:00 U Benzodiazepines Scrn NEGATIVE (NEGATIVE) 08/08/18 19:00 U Cocaine Metab Screen NEGATIVE (NEGATIVE) 08/08/18 19:00 U Cannabinoids Screen POSITIVE (NEGATIVE) H 08/08/18 19:00 HIV 1&2 Antibody Screen NEGATIVE (NEG) 08/11/18 04:15 Influenza A (Rapid) NEG FOR INF A 08/10/18 20:45 Influenza B (Rapid) NEG FOR INF B 08/10/18 20:45 - Physical Exam Vitals and I&O: Vital Signs Temp 96.0 F 08/14/18 08:00 Pulse 82 08/14/18 09:33 Resp 18 08/14/18 09:33 BP 108/65 08/14/18 08:54 Pulse Ox 96 08/14/18 09:33 Intake & Output 08/13/18 08/14/18 08/14/18 18:59 06:59 18:59 Intake Total 800 490 Output Total 1999 Balance -1200 490 Weight (lbs) 86.202 kg 86.183 kg 84.459 kg Intake: Intake, IV Amount 250 Azithromycin 500 mg In 250 Sodium Chloride 0.9% 250 ml @ 250 mls/hr IV Q24HR JOE Rx#:[id number] Oral 800 240 Output: Urine 1999 Other: # Voids 3 2 # Bowel Movements 0 Weight Source Bedscale Bedscale Bedscale Active Medications: Current Medications Albuterol Sulfate (Albuterol 2.5mg/3ml Neb Ud) 2.5 mg HHN Q4HRT PRN PRN Reason: Shortness of Breath Stop: 10/08/18 09:25 Aspirin (Aspirin Chewable) 81 mg PO DAILY JOE Stop: 10/09/18 08:59 Last Admin: 08/14/18 08:53 Dose: 81 mg Furosemide (Lasix) 40 mg IVP BID COUNTS INCLUDE 234 BEDS AT THE [facility] Stop: 10/11/18 16:59 Last Admin: 08/14/18 08:54 Dose: 40 mg Ceftriaxone Sodium 1 gm/ (Sodium Chloride) 50 mls @ 100 mls/hr IV Q24HR JOE Stop: 10/08/18 15:59 Last Admin: 08/13/18 15:52 Dose: 100 mls/hr Azithromycin 500 mg/ Sodium (Chloride) 250 mls @ 250 mls/hr IV Q24HR JOE Stop: 10/07/18 19:59 Last Infusion: 08/13/18 21:27 Dose: Infused Nitroglycerin (Nitrostat) 0.4 mg SL Q5MIN PRN PRN Reason: Chest Pain Stop: 10/07/18 19:44 Ondansetron HCl (Zofran) 4 mg IV Q6H PRN PRN Reason: Nausea / Vomiting Stop: 10/08/18 20:54 Last Admin: 08/10/18 22:47 Dose: 4 mg Simvastatin (Zocor) 20 mg PO HS JOE; Protocol Stop: 10/08/18 20:59 Last Admin: 08/13/18 20:28 Dose: 20 mg General: Alert, Oriented x3, No acute distress HEENT: Atraumatic, PERRLA, Mucous membr. moist/pink Neck: Supple, +2 carotid pulse wo bruit (10 cm upon sternal angle) Cardiovascular: Regular rate, Normal S1, Normal S2, Systolic murmurs Lungs: Other (scattered rhonchi) Abdomen: Bowel sounds, Soft, Obese Extremities: no Edema Neurological: Normal gait, Normal speech (r), Strength at 5/5 X4 ext, Normal tone, Cranial nerves 3-12 NL, Reflexes 2+ Skin: no Rash Psych/Mental Status: Mood NL - Procedures Procedures: Procedures Procedure Code Date INJECT/INFUSE NEC 99.29 02/21/10 Assessment/Plan - Problem List Patient Problems: All Active Problems NSTEMI (non-ST elevated myocardial infarction) (Acute) I21.4 POSSIBLE SEIZURE WITH RIGHT EAR PAIN (Acute) - Assessment Assessment: Congestive heart failure systolic dysfunction and acute Nonischemic cardiomyopathy ejection fraction 20% Non-STEMI myocardial infarction Substance abuse Pneumonia urinary tract infection Elevated liver enzymes Hold Coreg and lisinopril due to hypotension - Plan Plan: Continue Lasix. Consider LTAC Hold lisinopril and Coreg due to hypotension Nutritional Asmnt/Malnutr-PDOC - Dietary Evaluation Malnutrition Findings (Please click <Entered> for more info): Nutritional Asmnt/Malnutrition Start: 08/12/18 13: 25 Text: Status: Complete Freq: Protocol: Document 08/12/18 13:58 STEFANIE (Rec: 08/12/18 14:23 LCHENG [email or web address]) Nutritional Asmnt/Malnutrition Patient General Information Nutritional Screening Moderate Risk Diagnosis mstemi, right hilar PNA Pertinent Medical Hx/Surgical Hx cardiomegaly, cardiomyopathy, renal insufficiency Subjective Information Pt was transfered to ICU d/t hypotension. Per nurse BP now ir fine. pt seen lying in bed at time of visit, awake and alert. Pt stated appetite has been ok, food is good, no question or concer. PO intake 50-100%, mostly 100% per EMR. Current Diet Order/ Nutrition Support low sodium Pertinent Medications lasix Pertinent Labs 08/12 Na 135, BUN 28, mg 1.8 Nutritional Hx/Data Height 1.8 m Height (Calculated Centimeters) 180.3 Current Weight (lbs) 94.347 kg Weight (Calculated Kilograms) 94.3 Weight (Calculated Grams) 95867.2 [place] Body Weight 172 Body Mass Index (BMI) 29.0 Weight Status Approriate GI Symptoms GI Symptoms None Last BM 08/10 Difficult in: None Skin Integrity/Comment: intact Current %PO Good (75-100%) Estimated Nutritional Goals BEE in Kcals: Using Current wt Calories/Kcals/Kg 23-27 Kcals Calculated 4508-3733 Protein: Using Current wt Protein g/k.8 monitor renal labs Protein Calculated 76 Fluid: ml 2185-2565ml (1ml/kcal) Nutritional Problem 1. Problem Problem altered nutrition related labs Etiology possible renal dysfunction Signs/Symptoms: BUN 28 Malnutrition Alert Is there a minimum of two criteria No selected? Query Text:Check all the applicable criteria. A minimum of two criteria are recommended for diagnosis of either severe or non-severe malnutrition. Malnutrition Related to Morbid Obesity Malnutrition related to morbid obesity No Intervention/Recommendation Comments 1. Continue with low sodium diet as ordered. Monitor renal labs and adjust protein intake as needed. 2. Monitor PO intake, wt, labs and skin integrity 3. F/U as moderate risk in 3-5 days Expected Outcomes/Goals Expected Outcomes/Goals 1. PO intake to meet at least 75% of nutritional needs. 2. Wt stability, skin to remain intact, labs to approach WNL.
--- NOTE | 2018-08-14 13:12 | General Progress Note ---
Subjective - Review of Systems Service Date: 08/14/18 Subjective: feels better, denied sob, cp Objective - Results Result Diagrams: 08/12/18 04:10 08/14/18 06:15 Recent Labs: Laboratory Last Values WBC 7.6 Th/cmm (4.8-10.8) 08/12/18 04:10 RBC 4.88 Mil/cmm (4.30-5.70) 08/12/18 04:10 Hgb 13.5 gm/dL (12-16) 08/12/18 04:10 Hct 41.4 % (41.0-60) 08/12/18 04:10 MCV 84.8 fl (80-99) 08/12/18 04:10 MCH 27.7 pg (26.0-30.0) 08/12/18 04:10 MCHC Differential 32.6 pg (28.0-36.0) 08/12/18 04:10 RDW 14.1 % (11.5-20.0) 08/12/18 04:10 Plt Count 241 Th/cmm (150-400) 08/12/18 04:10 MPV 8.4 fl 08/12/18 04:10 Neutrophils % 55.4 % (40.0-80.0) 08/12/18 04:10 Lymphocytes % 31.1 % (20.0-50.0) 08/12/18 04:10 Monocytes % 8.0 % (2.0-10.0) 08/12/18 04:10 Eosinophils % 4.7 % (0.0-5.0) 08/12/18 04:10 Basophils % 0.8 % (0.0-2.0) 08/12/18 04:10 Eos Smear Source URINE 08/12/18 17:26 Eos Smear Total Cells NONE SEEN (NONE SEEN) 08/12/18 17:26 PT 13.6 SECONDS (9.5-11.5) H 08/08/18 18:10 INR 1.33 (0.5-1.4) 08/08/18 18:10 PTT (Actin FS) 29.2 SECONDS (26.0-38.0) 08/08/18 18:10 D-Dimer 547 ng/mL (100-400) H 08/08/18 18:10 Sodium 137 mEq/L (136-145) 08/14/18 06:15 Potassium 4.2 mEq/L (3.5-5.1) 08/14/18 06:15 Chloride 100 mEq/L (98-107) 08/14/18 06:15 Carbon Dioxide 28.5 mEq/L (21.0-31.0) 08/14/18 06:15 Anion Gap 12.7 (7.0-16.0) 08/14/18 06:15 BUN 26 mg/dL (7-25) H 08/14/18 06:15 Creatinine 1.3 mg/dL (0.7-1.3) 08/14/18 06:15 Est GFR ( Amer) > 60.0 ml/min (>90) 08/14/18 06:15 Est GFR (Non-Af Amer) > 60.0 ml/min 08/14/18 06:15 BUN/Creatinine Ratio 20.0 08/14/18 06:15 Glucose 107 mg/dL (70-105) H 08/14/18 06:15 Calcium 9.1 mg/dL (8.6-10.3) 08/14/18 06:15 Phosphorus 3.7 mg/dL (2.5-5.0) 08/12/18 04:10 Magnesium 1.8 mg/dL (1.9-2.7) L 08/12/18 04:10 Total Bilirubin 1.2 mg/dL (0.3-1.0) H 08/09/18 05:35 AST 85 U/L (13-39) H 08/09/18 05:35 ALT 94 U/L (7-52) H 08/09/18 05:35 Alkaline Phosphatase 83 U/L (34-104) 08/09/18 05:35 Troponin I 0.04 ng/mL (0.01-0.05) 08/12/18 14:00 B-Natriuretic Peptide 599.0 pg/mL (5.0-100.0) H 08/14/18 06:15 Total Protein 6.4 gm/dL (6.0-8.3) 08/09/18 05:35 Albumin 3.6 gm/dL (4.2-5.5) L 08/09/18 05:35 Globulin 2.8 gm/dL 08/09/18 05:35 Albumin/Globulin Ratio 1.3 (1.0-1.8) 08/09/18 05:35 Triglycerides 77 mg/dL (<150) 08/09/18 05:35 Cholesterol 134 mg/dL (<200) 08/09/18 05:35 LDL Cholesterol Direct 122 mg/dL (75-193) 08/09/18 05:35 HDL Cholesterol 23 mg/dL (23-92) 08/09/18 05:35 TSH 1.53 uIU/ml (0.34-5.60) 08/09/18 05:00 Urine Source CLEAN C 08/08/18 19:00 Urine Color LIGHT ORANGE 08/08/18 19:00 Urine Clarity HAZY (CLEAR) 08/08/18 19: Urine pH 5.5 (4.6 - 8.0) 08/08/18 19:00 Ur Specific [place] >= 1.030 (1.005-1.030) 08/08/18 19:00 Urine Protein 30 mg/dL (NEGATIVE) H 08/08/18 19:00 Urine Glucose (UA) NEGATIVE mg/dL (NEGATIVE) 08/08/18 19:00 Urine Ketones NEGATIVE mg/dL (NEGATIVE) 08/08/18 19:00 Urine Blood NEGATIVE (NEGATIVE) 08/08/18 19:00 Urine Nitrate NEGATIVE (NEGATIVE) 08/08/18 19:00 Urine Bilirubin MODERATE (NEGATIVE) H 08/08/18 19:00 Urine Ictotest NEGATIVE (NEGATIVE) 08/08/18 19:00 Urine Urobilinogen 2.0 E.U./dL (0.2 - 1.0) 08/08/18 19:00 Ur Leukocyte Esterase TRACE (NEGATIVE) H 08/08/18 19:00 Urine RBC NONE SEEN /hpf (0-5) 08/08/18 19:00 Urine WBC 6-10 /hpf (0-5) 08/08/18 19:00 Ur Epithelial Cells FEW /lpf (FEW) 08/08/18 19:00 Urine Bacteria MODERATE /hpf (NONE SEEN) H 08/08/18 19:00 Ur Random Sodium 95 mmol/L 08/12/18 17:26 Urine Creatinine 27.0 mg/dl (39.0-259.0) L 08/12/18 17:26 Microalb/Creat Ratio <14.8 mg/g creat (0.0-30.0) 08/12/18 17:26 Urine Opiates Screen NEGATIVE (NEGATIVE) 08/08/18 19:00 Urine Methadone Screen NEGATIVE (NEGATIVE) 08/08/18 19:00 Ur Barbiturates Screen NEGATIVE (NEGATIVE) 08/08/18 19:00 Ur Tricyclics Screen NEGATIVE (NEGATIVE) 08/08/18 19:00 Ur Phencyclidine Scrn NEGATIVE (NEGATIVE) 08/08/18 19:00 Amphetamines Screen POSITIVE (NEGATIVE) H 08/08/18 19:00 U Methamphetamines Scrn POSITIVE (NEGATIVE) H 08/08/18 19:00 U Benzodiazepines Scrn NEGATIVE (NEGATIVE) 08/08/18 19:00 U Cocaine Metab Screen NEGATIVE (NEGATIVE) 08/08/18 19:00 U Cannabinoids Screen POSITIVE (NEGATIVE) H 08/08/18 19:00 HIV 1&2 Antibody Screen NEGATIVE (NEG) 08/11/18 04:15 Influenza A (Rapid) NEG FOR INF A 08/10/18 20:45 Influenza B (Rapid) NEG FOR INF B 08/10/18 20:45 - Physical Exam Vitals and I&O: Vital Signs Temp 97.8 F 08/14/18 11:35 Pulse 84 08/14/18 11:35 Resp 19 08/14/18 11:35 BP 104/72 08/14/18 11:35 Pulse Ox 100 08/14/18 11:35 Intake & Output 08/13/18 08/14/18 08/14/18 18:59 06:59 18:59 Intake Total 800 490 Output Total 1999 Balance -1200 490 Weight (lbs) 86.202 kg 86.183 kg 84.459 kg Intake: Intake, IV Amount 250 Azithromycin 500 mg In 250 Sodium Chloride 0.9% 250 ml @ 250 mls/hr IV Q24HR JOE Rx#:[id number] Oral 800 240 Output: Urine 1999 Other: # Voids 3 2 # Bowel Movements 0 Weight Source Bedscale Bedscale Bedscale Active Medications: Current Medications Albuterol Sulfate (Albuterol 2.5mg/3ml Neb Ud) 2.5 mg HHN Q4HRT PRN PRN Reason: Shortness of Breath Stop: 10/08/18 09:25 Aspirin (Aspirin Chewable) 81 mg PO DAILY JOE Stop: 10/09/18 08:59 Last Admin: 08/14/18 08:53 Dose: 81 mg Furosemide (Lasix) 40 mg IVP BID [facility] Stop: 10/11/18 16:59 Last Admin: 08/14/18 08:54 Dose: 40 mg Ceftriaxone Sodium 1 gm/ (Sodium Chloride) 50 mls @ 100 mls/hr IV Q24HR JOE Stop: 10/08/18 15:59 Last Admin: 08/13/18 15:52 Dose: 100 mls/hr Azithromycin 500 mg/ Sodium (Chloride) 250 mls @ 250 mls/hr IV Q24HR JOE Stop: 10/07/18 19:59 Last Infusion: 08/13/18 21:27 Dose: Infused Nitroglycerin (Nitrostat) 0.4 mg SL Q5MIN PRN PRN Reason: Chest Pain Stop: 10/07/18 19:44 Ondansetron HCl (Zofran) 4 mg IV Q6H PRN PRN Reason: Nausea / Vomiting Stop: 10/08/18 20:54 Last Admin: 08/10/18 22:47 Dose: 4 mg Simvastatin (Zocor) 20 mg PO HS JOE; Protocol Stop: 10/08/18 20:59 Last Admin: 08/13/18 20:28 Dose: 20 mg General: Alert, Oriented x3, No acute distress HEENT: Atraumatic, PERRLA, Mucous membr. moist/pink Neck: Supple, +2 carotid pulse wo bruit (10 cm upon sternal angle) Cardiovascular: Regular rate, Normal S1, Normal S2, Systolic murmurs Lungs: Other (scattered rhonchi) Abdomen: Bowel sounds, Soft, Obese Extremities: no Edema Neurological: Normal gait, Normal speech (r), Strength at 5/5 X4 ext, Normal tone, Cranial nerves 3-12 NL, Reflexes 2+ Skin: no Rash Psych/Mental Status: Mood NL - Procedures Procedures: Procedures Procedure Code Date INJECT/INFUSE NEC 99.29 02/21/10 Assessment/Plan - Problem List Patient Problems: All Active Problems NSTEMI (non-ST elevated myocardial infarction) (Acute) I21.4 POSSIBLE SEIZURE WITH RIGHT EAR PAIN (Acute) - Assessment Assessment: PHU on CKD Elevated Troponin: NSTEMI Elevated BNP 2/2 mild CHF Elevated Liver Enzymes 2/2 Hepatic Congestion Ischemic Cardiomyopathy Dyslipidemia S/P Metanephrine Abuse End Stage CM - Plan Plan: Lab - Result Diagrams 08/12/18 04:10 08/12/18 04:10 Current Medications Albuterol Sulfate (Albuterol 2.5mg/3ml Neb Ud) 2.5 mg HHN Q4HRT PRN PRN Reason: Shortness of Breath Stop: 10/08/18 09:25 Aspirin (Aspirin Chewable) 81 mg PO DAILY JOE Stop: 10/09/18 08:59 Last Admin: 08/12/18 08:44 Dose: 81 mg Furosemide (Lasix) 40 mg IVP BID [facility] Stop: 10/11/18 16:59 Ceftriaxone Sodium 1 gm/ (Sodium Chloride) 50 mls @ 100 mls/hr IV Q24HR JOE Stop: 10/08/18 15:59 Last Admin: 08/11/18 15:28 Dose: 100 mls/hr Azithromycin 500 mg/ Sodium (Chloride) 250 mls @ 250 mls/hr IV Q24HR JOE Stop: 10/07/18 19:59 Last Infusion: 08/11/18 21:20 Dose: Infused Norepinephrine Bitartrate 4 mg (/ Dextrose) 254 mls @ 0 mls/hr IV TITR PRN; Protocol PRN Reason: BP MAINTENANCE (PER PROTOCOL) Stop: 10/09/18 23:21 Last Titration: 08/11/18 05:00 Dose: 0 mcg/min, 0 mls/hr Nitroglycerin (Nitrostat) 0.4 mg SL Q5MIN PRN PRN Reason: Chest Pain Stop: 10/07/18 19:44 Ondansetron HCl (Zofran) 4 mg IV Q6H PRN PRN Reason: Nausea / Vomiting Stop: 10/08/18 20:54 Last Admin: 08/10/18 22:47 Dose: 4 mg Simvastatin (Zocor) 20 mg PO HS JOE; Protocol Stop: 10/08/18 20:59 Last Admin: 08/11/18 20:10 Dose: 20 mg Lab - Result Diagrams 08/12/18 04:10 08/14/18 06:15 Kidney fnc stable w/ BUN/CR of 26/1.3 Renal US revealed mild B/L hydroureter but UOP excellent Lasix per cardiology CXR: persistent no focal consolidation Nutritional Asmnt/Malnutr-PDOC - Dietary Evaluation Malnutrition Findings (Please click <Entered> for more info): Nutritional Asmnt/Malnutrition Start: 08/12/18 13: 25 Text: Status: Complete Freq: Protocol: Document 08/12/18 13:58 BETTINACHELY (Rec: 08/12/18 14:23 BETTINACHELY [email or web address]) Nutritional Asmnt/Malnutrition Patient General Information Nutritional Screening Moderate Risk Diagnosis mstemi, right hilar PNA Pertinent Medical Hx/Surgical Hx cardiomegaly, cardiomyopathy, renal insufficiency Subjective Information Pt was transfered to ICU d/t hypotension. Per nurse BP now ir fine. pt seen lying in bed at time of visit, awake and alert. Pt stated appetite has been ok, food is good, no question or concer. PO intake 50-100%, mostly 100% per EMR. Current Diet Order/ Nutrition Support low sodium Pertinent Medications lasix Pertinent Labs 08/12 Na 135, BUN 28, mg 1.8 Nutritional Hx/Data Height 1.8 m Height (Calculated Centimeters) 180.3 Current Weight (lbs) 94.347 kg Weight (Calculated Kilograms) 94.3 Weight (Calculated Grams) 51972.2 [place] Body Weight 172 Body Mass Index (BMI) 29.0 Weight Status Approriate GI Symptoms GI Symptoms None Last BM 08/10 Difficult in: None Skin Integrity/Comment: intact Current %PO Good (75-100%) Estimated Nutritional Goals BEE in Kcals: Using Current wt Calories/Kcals/Kg 23-27 Kcals Calculated 1234-6638 Protein: Using Current wt Protein g/k.8 monitor renal labs Protein Calculated 76 Fluid: ml 2185-2565ml (1ml/kcal) Nutritional Problem 1. Problem Problem altered nutrition related labs Etiology possible renal dysfunction Signs/Symptoms: BUN 28 Malnutrition Alert Is there a minimum of two criteria No selected? Query Text:Check all the applicable criteria. A minimum of two criteria are recommended for diagnosis of either severe or non-severe malnutrition. Malnutrition Related to Morbid Obesity Malnutrition related to morbid obesity No Intervention/Recommendation Comments 1. Continue with low sodium diet as ordered. Monitor renal labs and adjust protein intake as needed. 2. Monitor PO intake, wt, labs and skin integrity 3. F/U as moderate risk in 3-5 days Expected Outcomes/Goals Expected Outcomes/Goals 1. PO intake to meet at least 75% of nutritional needs. 2. Wt stability, skin to remain intact, labs to approach WNL.
[2018-08-14] MEDS: cefTRIAXone 1 GM in Sodium Chloride 0.9% 50 ML IV SCH (16:14)
--- NOTE | 2018-08-14 18:02 | Internal Medicine Prog Note ---
Internal Medicine Subjective - Subjective Service Date: 08/14/18 Patient is:: awake, other (pt with multiple problems non.STEMI,renal insufficiency.) Patient Complaints of:: pain with urination Per staff patient has:: no adverse event, no episodes of fall, other (mild swelling of lower extremities.) Internal Medicine Objective - Results Result Diagrams: 08/12/18 04:10 08/14/18 06:15 Recent Labs: Laboratory Last Values WBC 7.6 Th/cmm (4.8-10.8) 08/12/18 04:10 RBC 4.88 Mil/cmm (4.30-5.70) 08/12/18 04:10 Hgb 13.5 gm/dL (12-16) 08/12/18 04:10 Hct 41.4 % (41.0-60) 08/12/18 04:10 MCV 84.8 fl (80-99) 08/12/18 04:10 MCH 27.7 pg (26.0-30.0) 08/12/18 04:10 MCHC Differential 32.6 pg (28.0-36.0) 08/12/18 04:10 RDW 14.1 % (11.5-20.0) 08/12/18 04:10 Plt Count 241 Th/cmm (150-400) 08/12/18 04:10 MPV 8.4 fl 08/12/18 04:10 Neutrophils % 55.4 % (40.0-80.0) 08/12/18 04:10 Lymphocytes % 31.1 % (20.0-50.0) 08/12/18 04:10 Monocytes % 8.0 % (2.0-10.0) 08/12/18 04:10 Eosinophils % 4.7 % (0.0-5.0) 08/12/18 04:10 Basophils % 0.8 % (0.0-2.0) 08/12/18 04:10 Eos Smear Source URINE 08/12/18 17:26 Eos Smear Total Cells NONE SEEN (NONE SEEN) 08/12/18 17:26 PT 13.6 SECONDS (9.5-11.5) H 08/08/18 18:10 INR 1.33 (0.5-1.4) 08/08/18 18:10 PTT (Actin FS) 29.2 SECONDS (26.0-38.0) 08/08/18 18:10 D-Dimer 547 ng/mL (100-400) H 08/08/18 18:10 Sodium 137 mEq/L (136-145) 08/14/18 06:15 Potassium 4.2 mEq/L (3.5-5.1) 08/14/18 06:15 Chloride 100 mEq/L (98-107) 08/14/18 06:15 Carbon Dioxide 28.5 mEq/L (21.0-31.0) 08/14/18 06:15 Anion Gap 12.7 (7.0-16.0) 08/14/18 06:15 BUN 26 mg/dL (7-25) H 08/14/18 06:15 Creatinine 1.3 mg/dL (0.7-1.3) 08/14/18 06:15 Est GFR ( Amer) > 60.0 ml/min (>90) 08/14/18 06:15 Est GFR (Non-Af Amer) > 60.0 ml/min 08/14/18 06:15 BUN/Creatinine Ratio 20.0 08/14/18 06:15 Glucose 107 mg/dL (70-105) H 08/14/18 06:15 Calcium 9.1 mg/dL (8.6-10.3) 08/14/18 06:15 Phosphorus 3.7 mg/dL (2.5-5.0) 08/12/18 04:10 Magnesium 1.8 mg/dL (1.9-2.7) L 08/12/18 04:10 Total Bilirubin 1.2 mg/dL (0.3-1.0) H 08/09/18 05:35 AST 85 U/L (13-39) H 08/09/18 05:35 ALT 94 U/L (7-52) H 08/09/18 05:35 Alkaline Phosphatase 83 U/L (34-104) 08/09/18 05:35 Troponin I 0.04 ng/mL (0.01-0.05) 08/12/18 14:00 B-Natriuretic Peptide 599.0 pg/mL (5.0-100.0) H 08/14/18 06:15 Total Protein 6.4 gm/dL (6.0-8.3) 08/09/18 05:35 Albumin 3.6 gm/dL (4.2-5.5) L 08/09/18 05:35 Globulin 2.8 gm/dL 08/09/18 05:35 Albumin/Globulin Ratio 1.3 (1.0-1.8) 08/09/18 05:35 Triglycerides 77 mg/dL (<150) 08/09/18 05:35 Cholesterol 134 mg/dL (<200) 08/09/18 05:35 LDL Cholesterol Direct 122 mg/dL (75-193) 08/09/18 05:35 HDL Cholesterol 23 mg/dL (23-92) 08/09/18 05:35 TSH 1.53 uIU/ml (0.34-5.60) 08/09/18 05:00 Urine Source CLEAN C 08/08/18 19:00 Urine Color LIGHT ORANGE 08/08/18 19:00 Urine Clarity HAZY (CLEAR) 08/08/18 19:00 Urine pH 5.5 (4.6 - 8.0) 08/08/18 19:00 Ur Specific [place] >= 1.030 (1.005-1.030) 08/08/18 19:00 Urine Protein 30 mg/dL (NEGATIVE) H 08/08/18 19:00 Urine Glucose (UA) NEGATIVE mg/dL (NEGATIVE) 08/08/18 19:00 Urine Ketones NEGATIVE mg/dL (NEGATIVE) 08/08/18 19:00 Urine Blood NEGATIVE (NEGATIVE) 08/08/18 19:00 Urine Nitrate NEGATIVE (NEGATIVE) 08/08/18 19:00 Urine Bilirubin MODERATE (NEGATIVE) H 08/08/18 19:00 Urine Ictotest NEGATIVE (NEGATIVE) 08/08/18 19:00 Urine Urobilinogen 2.0 E.U./dL (0.2 - 1.0) 08/08/18 19:00 Ur Leukocyte Esterase TRACE (NEGATIVE) H 08/08/18 19:00 Urine RBC NONE SEEN /hpf (0-5) 08/08/18 19:00 Urine WBC 6-10 /hpf (0-5) 08/08/18 19:00 Ur Epithelial Cells FEW /lpf (FEW) 08/08/18 19:00 Urine Bacteria MODERATE /hpf (NONE SEEN) H 08/08/18 19:00 Ur Random Sodium 95 mmol/L 08/12/18 17:26 Urine Creatinine 27.0 mg/dl (39.0-259.0) L 08/12/18 17:26 Microalb/Creat Ratio <14.8 mg/g creat (0.0-30.0) 08/12/18 17:26 Urine Opiates Screen NEGATIVE (NEGATIVE) 08/08/18 19:00 Urine Methadone Screen NEGATIVE (NEGATIVE) 08/08/18 19:00 Ur Barbiturates Screen NEGATIVE (NEGATIVE) 08/08/18 19:00 Ur Tricyclics Screen NEGATIVE (NEGATIVE) 08/08/18 19:00 Ur Phencyclidine Scrn NEGATIVE (NEGATIVE) 08/08/18 19:00 Amphetamines Screen POSITIVE (NEGATIVE) H 08/08/18 19:00 U Methamphetamines Scrn POSITIVE (NEGATIVE) H 08/08/18 19:00 U Benzodiazepines Scrn NEGATIVE (NEGATIVE) 08/08/18 19:00 U Cocaine Metab Screen NEGATIVE (NEGATIVE) 08/08/18 19:00 U Cannabinoids Screen POSITIVE (NEGATIVE) H 08/08/18 19:00 HIV 1&2 Antibody Screen NEGATIVE (NEG) 08/11/18 04:15 Influenza A (Rapid) NEG FOR INF A 08/10/18 20:45 Influenza B (Rapid) NEG FOR INF B 08/10/18 20:45 - Physical Exam Vitals and I&O: Vital Signs Temp 98.2 F 08/14/18 15:43 Pulse 81 08/14/18 15:43 Resp 18 08/14/18 16:00 BP 110/69 08/14/18 17:13 Pulse Ox 98 08/14/18 15:43 Intake & Output 08/13/18 08/14/18 08/14/18 18:59 06:59 18:59 Intake Total 850 490 320 Output Total 1999 1450 Balance -1150 490 -1130 Weight (lbs) 190 lb 0.7 oz 190 lb 186 lb 3.2 oz Intake: Intake, IV Amount 50 250 Azithromycin 500 mg In 250 Sodium Chloride 0.9% 250 ml @ 250 mls/hr IV Q24HR JOE Rx#:[id number] cefTRIAXone 1 gm In 50 Sodium Chloride 0.9% 50 ml @ 100 mls/hr IV Q24HR JOE Rx#:[id number] Oral 800 240 320 Output: Urine 1999 1450 Other: # Voids 3 2 # Bowel Movements 0 Weight Source Bedscale Bedscale Bedscale Active Medications: Current Medications Albuterol Sulfate (Albuterol 2.5mg/3ml Neb Ud) 2.5 mg HHN Q4HRT PRN PRN Reason: Shortness of Breath Stop: 10/08/18 09:25 Aspirin (Aspirin Chewable) 81 mg PO DAILY [facility] Stop: 10/09/18 08:59 Last Admin: 08/14/18 08:53 Dose: 81 mg Furosemide (Lasix) 40 mg IVP BID [facility] Stop: 10/11/18 16:59 Last Admin: 08/14/18 17:13 Dose: 40 mg Ceftriaxone Sodium 1 gm/ (Sodium Chloride) 50 mls @ 100 mls/hr IV Q24HR [facility] Stop: 10/08/18 15:59 Last Admin: 08/14/18 16:14 Dose: 100 mls/hr Azithromycin 500 mg/ Sodium (Chloride) 250 mls @ 250 mls/hr IV Q24HR JOE Stop: 10/07/18 19:59 Last Infusion: 08/13/18 21:27 Dose: Infused Nitroglycerin (Nitrostat) 0.4 mg SL Q5MIN PRN PRN Reason: Chest Pain Stop: 10/07/18 19:44 Ondansetron HCl (Zofran) 4 mg IV Q6H PRN PRN Reason: Nausea / Vomiting Stop: 10/08/18 20:54 Last Admin: 08/10/18 22:47 Dose: 4 mg Simvastatin (Zocor) 20 mg PO HS [facility]; Protocol Stop: 10/08/18 20:59 Last Admin: 08/13/18 20:28 Dose: 20 mg General: weak, alert HEENT: NC/AT Neck: Supple Lungs: rales (rales bilatrerally.), ronchi, other (rales amx) Cardiovascular: RRR Abdomen: soft Extremities: clear Neurological: no change, alert - Procedures Procedures: Procedures Procedure Code Date INJECT/INFUSE NEC 99.29 02/21/10 Internal Medicine Assmt/Plan - Assessment Assessment: Right-sided pneumonia Non-STEMI Cardiomyopathy with low ejection fraction Congestive heart failure Renal insufficiency Elevated D dimer Elevated liver enzymes Mild urinary tract infectioin H/o iv drug abuse - Plan Plan: continue ivabx respiratory tx continue current plan of care Nutritional Asmnt/Malnutr-PDOC - Dietary Evaluation Malnutrition Findings (Please click <Entered> for more info): Nutritional Asmnt/Malnutrition Start: 08/12/18 13: 25 Text: Status: Complete Freq: Protocol: Document 08/12/18 13:58 [email or web address] (Rec: 08/12/18 14:23 [email or web address]) Nutritional Asmnt/Malnutrition Patient General Information Nutritional Screening Moderate Risk Diagnosis mstemi, right hilar PNA Pertinent Medical Hx/Surgical Hx cardiomegaly, cardiomyopathy, renal insufficiency Subjective Information Pt was transfered to ICU d/t hypotension. Per nurse BP now ir fine. pt seen lying in bed at time of visit, awake and alert. Pt stated appetite has been ok, food is good, no question or concer. PO intake 50-100%, mostly 100% per EMR. Current Diet Order/ Nutrition Support low sodium Pertinent Medications lasix Pertinent Labs 08/12 Na 135, BUN 28, mg 1.8 Nutritional Hx/Data Height 5 ft 11 in Height (Calculated Centimeters) 180.3 Current Weight (lbs) 208 lb Weight (Calculated Kilograms) 94.3 Weight (Calculated Grams) 96885.2 [place] Body Weight 172 Body Mass Index (BMI) 29.0 Weight Status Approriate GI Symptoms GI Symptoms None Last BM 08/10 Difficult in: None Skin Integrity/Comment: intact Current %PO Good (75-100%) Estimated Nutritional Goals BEE in Kcals: Using Current wt Calories/Kcals/Kg 23-27 Kcals Calculated 2446-0149 Protein: Using Current wt Protein g/k.8 monitor renal labs Protein Calculated 76 Fluid: ml 2185-2565ml (1ml/kcal) Nutritional Problem 1. Problem Problem altered nutrition related labs Etiology possible renal dysfunction Signs/Symptoms: BUN 28 Malnutrition Alert Is there a minimum of two criteria No selected? Query Text:Check all the applicable criteria. A minimum of two criteria are recommended for diagnosis of either severe or non-severe malnutrition. Malnutrition Related to Morbid Obesity Malnutrition related to morbid obesity No Intervention/Recommendation Comments 1. Continue with low sodium diet as ordered. Monitor renal labs and adjust protein intake as needed. 2. Monitor PO intake, wt, labs and skin integrity 3. F/U as moderate risk in 3-5 days Expected Outcomes/Goals Expected Outcomes/Goals 1. PO intake to meet at least 75% of nutritional needs. 2. Wt stability, skin to remain intact, labs to approach WNL.
[2018-08-14] MEDS: Azithromycin 500 MG in Sodium Chloride 0.9% 250 ML IV SCH (21:28)
[2018-08-15 06:25] LABS: % BASOPHILS 0.7 % (0.0-2.0); % EOSINOPHILS 6.7 % (0.0-5.0); % LYMPHOCYTES 29.6 % (20.0-50.0); % MONOCYTES 9.1 % (2.0-10.0); % NEUTROPHILS 53.9 % (40.0-80.0); BASOPHILE ABSOLUTE 0.1 Th/cumm (0-0.2); EOSINOPHILE ABSOLUTE 0.5 Th/cmm (0.1-0.4); HEMATOCRIT 43.9 % (41.0-60); HEMOGLOBIN 14.5 gm/dL (12-16); LYMPHOCYTE ABSOLUTE 2.4 Th/cmm (1.5-3.0); MEAN CELL VOLUME 82.1 fl (80-99); MEAN CORPUSCULAR HEMOGLOBIN 27.2 pg (26.0-30.0); MEAN CORPUSCULAR HGB CONC 33.1 pg (28.0-36.0); MEAN PLATELET VOLUME 7.4 fl; MONOCYTE ABSOLUTE 0.7 Th/cmm (0.3-1.0); NEUTROPHILE ABSOLUTE 4.3 Th/cmm (1.8-8.0); PLATELET COUNT 304 Th/cmm (150-400); RED BLOOD COUNT 5.35 Mil/cmm (4.30-5.70); RED CELL DISTRIBUTION WIDTH 14.5 % (11.5-20.0)
[2018-08-15 06:46] LABS: BUN - UREA NITROGEN 24 mg/dL (7-25); CALCIUM SERUM 9.2 mg/dL (8.6-10.3); CARBON DIOXIDE 27.7 mEq/L (21.0-31.0); CHLORIDE 100 mEq/L (98-107); CREATININE - SERUM 1.1 mg/dL (0.7-1.3); GFR AFRICAN-AMERICAN > 60.0 ml/min (>90); GFR NON AFRICAN-AMERICAN > 60.0 ml/min; GLUCOSE 103 mg/dL (70-105); POTASSIUM SERUM 3.7 mEq/L (3.5-5.1); SODIUM SERUM 136 mEq/L (136-145)
--- NOTE | 2018-08-15 08:32 | Diagnostic Imaging Report ---
Portable chest x-ray HISTORY: Shortness of breath The heart size is generous. No focal pulmonary processes. Degenerative changes seen throughout the spine. IMPRESSION: 1. No acute focal pulmonary processes 2. Cardiomegaly
[2018-08-15] MEDS: Aspirin 81mg Chewable Tab PO SCH (09:29)
--- NOTE | 2018-08-15 11:18 | Internal Medicine Prog Note ---
Internal Medicine Subjective - Subjective Service Date: 08/15/18 Patient seen and examined:: chart reviewed Patient is:: awake, other (pt with multiple problems non.STEMI,renal insufficiency.) Patient Complaints of:: pain with urination, other (Hx of SOB.) Per staff patient has:: no adverse event, no episodes of fall, other (mild swelling of lower extremities.) Internal Medicine Objective - Results Result Diagrams: 08/15/18 05:30 08/15/18 05:30 Recent Labs: Laboratory Last Values WBC 8.0 Th/cmm (4.8-10.8) 08/15/18 05:30 RBC 5.35 Mil/cmm (4.30-5.70) 08/15/18 05:30 Hgb 14.5 gm/dL (12-16) 08/15/18 05:30 Hct 43.9 % (41.0-60) 08/15/18 05:30 MCV 82.1 fl (80-99) 08/15/18 05:30 MCH 27.2 pg (26.0-30.0) 08/15/18 05:30 MCHC Differential 33.1 pg (28.0-36.0) 08/15/18 05:30 RDW 14.5 % (11.5-20.0) 08/15/18 05:30 Plt Count 304 Th/cmm (150-400) 08/15/18 05:30 MPV 7.4 fl 08/15/18 05:30 Neutrophils % 53.9 % (40.0-80.0) 08/15/18 05:30 Lymphocytes % 29.6 % (20.0-50.0) 08/15/18 05:30 Monocytes % 9.1 % (2.0-10.0) 08/15/18 05:30 Eosinophils % 6.7 % (0.0-5.0) H 08/15/18 05:30 Basophils % 0.7 % (0.0-2.0) 08/15/18 05:30 Eos Smear Source URINE 08/12/18 17:26 Eos Smear Total Cells NONE SEEN (NONE SEEN) 08/12/18 17:26 PT 13.6 SECONDS (9.5-11.5) H 08/08/18 18:10 INR 1.33 (0.5-1.4) 08/08/18 18:10 PTT (Actin FS) 29.2 SECONDS (26.0-38.0) 08/08/18 18:10 D-Dimer 547 ng/mL (100-400) H 08/08/18 18:10 Sodium 136 mEq/L (136-145) 08/15/18 05:30 Potassium 3.7 mEq/L (3.5-5.1) 08/15/18 05:30 Chloride 100 mEq/L (98-107) 08/15/18 05:30 Carbon Dioxide 27.7 mEq/L (21.0-31.0) 08/15/18 05:30 Anion Gap 12.0 (7.0-16.0) 08/15/18 05:30 BUN 24 mg/dL (7-25) 08/15/18 05:30 Creatinine 1.1 mg/dL (0.7-1.3) 08/15/18 05:30 Est GFR ( Amer) > 60.0 ml/min (>90) 08/15/18 05:30 Est GFR (Non-Af Amer) > 60.0 ml/min 08/15/18 05:30 BUN/Creatinine Ratio 21.8 08/15/18 05:30 Glucose 103 mg/dL (70-105) 08/15/18 05:30 Calcium 9.2 mg/dL (8.6-10.3) 08/15/18 05:30 Phosphorus 3.7 mg/dL (2.5-5.0) 08/12/18 04:10 Magnesium 1.8 mg/dL (1.9-2.7) L 08/12/18 04:10 Total Bilirubin 1.2 mg/dL (0.3-1.0) H 08/09/18 05:35 AST 85 U/L (13-39) H 08/09/18 05:35 ALT 94 U/L (7-52) H 08/09/18 05:35 Alkaline Phosphatase 83 U/L (34-104) 08/09/18 05:35 Troponin I 0.04 ng/mL (0.01-0.05) 08/12/18 14:00 B-Natriuretic Peptide 599.0 pg/mL (5.0-100.0) H 08/14/18 06:15 Total Protein 6.4 gm/dL (6.0-8.3) 08/09/18 05:35 Albumin 3.6 gm/dL (4.2-5.5) L 08/09/18 05:35 Globulin 2.8 gm/dL 08/09/18 05:35 Albumin/Globulin Ratio 1.3 (1.0-1.8) 08/09/18 05:35 Triglycerides 77 mg/dL (<150) 08/09/18 05:35 Cholesterol 134 mg/dL (<200) 08/09/18 05:35 LDL Cholesterol Direct 122 mg/dL (75-193) 08/09/18 05:35 HDL Cholesterol 23 mg/dL (23-92) 08/09/18 05:35 TSH 1.53 uIU/ml (0.34-5.60) 08/09/18 05:00 Urine Source CLEAN C 08/08/18 19:00 Urine Color LIGHT ORANGE 08/08/18 19:00 Urine Clarity HAZY (CLEAR) 08/08/18 19:00 Urine pH 5.5 (4.6 - 8.0) 08/08/18 19:00 Ur Specific [place] >= 1.030 (1.005-1.030) 08/08/18 19:00 Urine Protein 30 mg/dL (NEGATIVE) H 08/08/18 19:00 Urine Glucose (UA) NEGATIVE mg/dL (NEGATIVE) 08/08/18 19:00 Urine Ketones NEGATIVE mg/dL (NEGATIVE) 08/08/18 19:00 Urine Blood NEGATIVE (NEGATIVE) 08/08/18 19:00 Urine Nitrate NEGATIVE (NEGATIVE) 08/08/18 19:00 Urine Bilirubin MODERATE (NEGATIVE) H 08/08/18 19:00 Urine Ictotest NEGATIVE (NEGATIVE) 08/08/18 19:00 Urine Urobilinogen 2.0 E.U./dL (0.2 - 1.0) 08/08/18 19:00 Ur Leukocyte Esterase TRACE (NEGATIVE) H 08/08/18 19:00 Urine RBC NONE SEEN /hpf (0-5) 08/08/18 19:00 Urine WBC 6-10 /hpf (0-5) 08/08/18 19:00 Ur Epithelial Cells FEW /lpf (FEW) 08/08/18 19:00 Urine Bacteria MODERATE /hpf (NONE SEEN) H 08/08/18 19:00 Ur Random Sodium 95 mmol/L 08/12/18 17:26 Urine Creatinine 27.0 mg/dl (39.0-259.0) L 08/12/18 17:26 Microalb/Creat Ratio <14.8 mg/g creat (0.0-30.0) 08/12/18 17:26 Urine Opiates Screen NEGATIVE (NEGATIVE) 08/08/18 19:00 Urine Methadone Screen NEGATIVE (NEGATIVE) 08/08/18 19:00 Ur Barbiturates Screen NEGATIVE (NEGATIVE) 08/08/18 19:00 Ur Tricyclics Screen NEGATIVE (NEGATIVE) 08/08/18 19:00 Ur Phencyclidine Scrn NEGATIVE (NEGATIVE) 08/08/18 19:00 Amphetamines Screen POSITIVE (NEGATIVE) H 08/08/18 19:00 U Methamphetamines Scrn POSITIVE (NEGATIVE) H 08/08/18 19:00 U Benzodiazepines Scrn NEGATIVE (NEGATIVE) 08/08/18 19:00 U Cocaine Metab Screen NEGATIVE (NEGATIVE) 08/08/18 19:00 U Cannabinoids Screen POSITIVE (NEGATIVE) H 08/08/18 19:00 HIV 1&2 Antibody Screen NEGATIVE (NEG) 08/11/18 04:15 Influenza A (Rapid) NEG FOR INF A 08/10/18 20:45 Influenza B (Rapid) NEG FOR INF B 08/10/18 20:45 - Physical Exam Vitals and I&O: Vital Signs Temp 97.6 F 08/15/18 07:58 Pulse 69 08/15/18 07:58 Resp 18 08/15/18 07:58 BP 117/68 08/15/18 09:29 Pulse Ox 96 08/15/18 07:58 Intake & Output 08/14/18 08/15/18 08/15/18 18:59 06:59 18:59 Intake Total 320 100 Output Total 1450 Balance -1130 100 Weight (lbs) 84.459 kg 84.368 kg Intake: Oral 320 100 Output: Urine 1450 Other: # Voids 2 2 Weight Source Bedscale Bedscale Active Medications: Current Medications Albuterol Sulfate (Albuterol 2.5mg/3ml Neb Ud) 2.5 mg HHN Q4HRT PRN PRN Reason: Shortness of Breath Stop: 10/08/18 09:25 Aspirin (Aspirin Chewable) 81 mg PO DAILY [facility] Stop: 10/09/18 08:59 Last Admin: 08/15/18 09:29 Dose: 81 mg Furosemide (Lasix) 40 mg IVP BID [facility] Stop: 10/11/18 16:59 Last Admin: 08/15/18 09:29 Dose: 40 mg Ceftriaxone Sodium 1 gm/ (Sodium Chloride) 50 mls @ 100 mls/hr IV Q24HR [facility] Stop: 10/08/18 15:59 Last Admin: 08/14/18 16:14 Dose: 100 mls/hr Azithromycin 500 mg/ Sodium (Chloride) 250 mls @ 250 mls/hr IV Q24HR [facility] Stop: 10/07/18 19:59 Last Admin: 08/14/18 21:28 Dose: 250 mls/hr Nitroglycerin (Nitrostat) 0.4 mg SL Q5MIN PRN PRN Reason: Chest Pain Stop: 10/07/18 19:44 Ondansetron HCl (Zofran) 4 mg IV Q6H PRN PRN Reason: Nausea / Vomiting Stop: 10/08/18 20:54 Last Admin: 08/10/18 22:47 Dose: 4 mg Simvastatin (Zocor) 20 mg PO HS [facility]; Protocol Stop: 10/08/18 20:59 Last Admin: 08/14/18 21:28 Dose: 20 mg General: weak, alert HEENT: NC/AT Neck: Supple Lungs: rales (rales bilatrerally.), ronchi, other (rales max) Cardiovascular: RRR Abdomen: soft Extremities: clear Neurological: no change, alert - Procedures Procedures: Procedures Procedure Code Date INJECT/INFUSE NEC 99.29 02/21/10 Internal Medicine Assmt/Plan - Assessment Assessment: Hx of SOB Cardiomegaly Right-sided pneumonia Non-STEMI Cardiomyopathy with low ejection fraction Congestive heart failure Renal insufficiency Elevated D dimer Elevated liver enzymes Mild urinary tract infectioin H/o iv drug abuse - Plan Plan: Continuation of care Monitor labs, Urinalysis, Chest x-ray Continue present antibiotics and meds as directed Monitor patient closely Continue present treatment plan. Nutritional Asmnt/Malnutr-PDOC - Dietary Evaluation Malnutrition Findings (Please click <Entered> for more info): Nutritional Asmnt/Malnutrition Start: 08/12/18 13: 25 Text: Status: Complete Freq: Protocol: Document 08/12/18 13:58 LCHENG (Rec: 08/12/18 14:23 [email or web address] [email or web address]) Nutritional Asmnt/Malnutrition Patient General Information Nutritional Screening Moderate Risk Diagnosis mstemi, right hilar PNA Pertinent Medical Hx/Surgical Hx cardiomegaly, cardiomyopathy, renal insufficiency Subjective Information Pt was transfered to ICU d/t hypotension. Per nurse BP now ir fine. pt seen lying in bed at time of visit, awake and alert. Pt stated appetite has been ok, food is good, no question or concer. PO intake 50-100%, mostly 100% per EMR. Current Diet Order/ Nutrition Support low sodium Pertinent Medications lasix Pertinent Labs 08/12 Na 135, BUN 28, mg 1.8 Nutritional Hx/Data Height 1.8 m Height (Calculated Centimeters) 180.3 Current Weight (lbs) 94.347 kg Weight (Calculated Kilograms) 94.3 Weight (Calculated Grams) 59395.2 [place] Body Weight 172 Body Mass Index (BMI) 29.0 Weight Status Approriate GI Symptoms GI Symptoms None Last BM 08/10 Difficult in: None Skin Integrity/Comment: intact Current %PO Good (75-100%) Estimated Nutritional Goals BEE in Kcals: Using Current wt Calories/Kcals/Kg 23-27 Kcals Calculated 7393-7021 Protein: Using Current wt Protein g/k.8 monitor renal labs Protein Calculated 76 Fluid: ml 2185-2565ml (1ml/kcal) Nutritional Problem 1. Problem Problem altered nutrition related labs Etiology possible renal dysfunction Signs/Symptoms: BUN 28 Malnutrition Alert Is there a minimum of two criteria No selected? Query Text:Check all the applicable criteria. A minimum of two criteria are recommended for diagnosis of either severe or non-severe malnutrition. Malnutrition Related to Morbid Obesity Malnutrition related to morbid obesity No Intervention/Recommendation Comments 1. Continue with low sodium diet as ordered. Monitor renal labs and adjust protein intake as needed. 2. Monitor PO intake, wt, labs and skin integrity 3. F/U as moderate risk in 3-5 days Expected Outcomes/Goals Expected Outcomes/Goals 1. PO intake to meet at least 75% of nutritional needs. 2. Wt stability, skin to remain intact, labs to approach WNL.
--- NOTE | 2018-08-15 13:25 | Infectious Disease Prog Note ---
Infectious Disease Subjective - Review of Systems Service Date: 08/15/18 Subjective: doing well, no fever. Infectious Disease Objective - Results Result Diagrams: 08/15/18 05:30 08/15/18 05:30 Recent Labs: Laboratory Last Values WBC 8.0 Th/cmm (4.8-10.8) 08/15/18 05:30 RBC 5.35 Mil/cmm (4.30-5.70) 08/15/18 05:30 Hgb 14.5 gm/dL (12-16) 08/15/18 05:30 Hct 43.9 % (41.0-60) 08/15/18 05:30 MCV 82.1 fl (80-99) 08/15/18 05:30 MCH 27.2 pg (26.0-30.0) 08/15/18 05:30 MCHC Differential 33.1 pg (28.0-36.0) 08/15/18 05:30 RDW 14.5 % (11.5-20.0) 08/15/18 05:30 Plt Count 304 Th/cmm (150-400) 08/15/18 05:30 MPV 7.4 fl 08/15/18 05:30 Neutrophils % 53.9 % (40.0-80.0) 08/15/18 05:30 Lymphocytes % 29.6 % (20.0-50.0) 08/15/18 05:30 Monocytes % 9.1 % (2.0-10.0) 08/15/18 05:30 Eosinophils % 6.7 % (0.0-5.0) H 08/15/18 05:30 Basophils % 0.7 % (0.0-2.0) 08/15/18 05:30 Eos Smear Source URINE 08/12/18 17:26 Eos Smear Total Cells NONE SEEN (NONE SEEN) 08/12/18 17:26 PT 13.6 SECONDS (9.5-11.5) H 08/08/18 18:10 INR 1.33 (0.5-1.4) 08/08/18 18:10 PTT (Actin FS) 29.2 SECONDS (26.0-38.0) 08/08/18 18:10 D-Dimer 547 ng/mL (100-400) H 08/08/18 18:10 Sodium 136 mEq/L (136-145) 08/15/18 05:30 Potassium 3.7 mEq/L (3.5-5.1) 08/15/18 05:30 Chloride 100 mEq/L (98-107) 08/15/18 05:30 Carbon Dioxide 27.7 mEq/L (21.0-31.0) 08/15/18 05:30 Anion Gap 12.0 (7.0-16.0) 08/15/18 05:30 BUN 24 mg/dL (7-25) 08/15/18 05:30 Creatinine 1.1 mg/dL (0.7-1.3) 08/15/18 05:30 Est GFR ( Amer) > 60.0 ml/min (>90) 08/15/18 05:30 Est GFR (Non-Af Amer) > 60.0 ml/min 08/15/18 05:30 BUN/Creatinine Ratio 21.8 08/15/18 05:30 Glucose 103 mg/dL (70-105) 08/15/18 05:30 Calcium 9.2 mg/dL (8.6-10.3) 08/15/18 05:30 Phosphorus 3.7 mg/dL (2.5-5.0) 08/12/18 04:10 Magnesium 1.8 mg/dL (1.9-2.7) L 08/12/18 04:10 Total Bilirubin 1.2 mg/dL (0.3-1.0) H 08/09/18 05:35 AST 85 U/L (13-39) H 08/09/18 05:35 ALT 94 U/L (7-52) H 08/09/18 05:35 Alkaline Phosphatase 83 U/L (34-104) 08/09/18 05:35 Troponin I 0.04 ng/mL (0.01-0.05) 08/12/18 14:00 B-Natriuretic Peptide 599.0 pg/mL (5.0-100.0) H 08/14/18 06:15 Total Protein 6.4 gm/dL (6.0-8.3) 08/09/18 05:35 Albumin 3.6 gm/dL (4.2-5.5) L 08/09/18 05:35 Globulin 2.8 gm/dL 08/09/18 05:35 Albumin/Globulin Ratio 1.3 (1.0-1.8) 08/09/18 05:35 Triglycerides 77 mg/dL (<150) 08/09/18 05:35 Cholesterol 134 mg/dL (<200) 08/09/18 05:35 LDL Cholesterol Direct 122 mg/dL (75-193) 08/09/18 05:35 HDL Cholesterol 23 mg/dL (23-92) 08/09/18 05:35 TSH 1.53 uIU/ml (0.34-5.60) 08/09/18 05:00 Urine Source CLEAN C 08/08/18 19:00 Urine Color LIGHT ORANGE 08/08/18 19:00 Urine Clarity HAZY (CLEAR) 08/08/18 19: Urine pH 5.5 (4.6 - 8.0) 08/08/18 19:00 Ur Specific [place] >= 1.030 (1.005-1.030) 08/08/18 19:00 Urine Protein 30 mg/dL (NEGATIVE) H 08/08/18 19:00 Urine Glucose (UA) NEGATIVE mg/dL (NEGATIVE) 08/08/18 19:00 Urine Ketones NEGATIVE mg/dL (NEGATIVE) 08/08/18 19:00 Urine Blood NEGATIVE (NEGATIVE) 08/08/18 19:00 Urine Nitrate NEGATIVE (NEGATIVE) 08/08/18 19:00 Urine Bilirubin MODERATE (NEGATIVE) H 08/08/18 19:00 Urine Ictotest NEGATIVE (NEGATIVE) 08/08/18 19:00 Urine Urobilinogen 2.0 E.U./dL (0.2 - 1.0) 08/08/18 19:00 Ur Leukocyte Esterase TRACE (NEGATIVE) H 08/08/18 19:00 Urine RBC NONE SEEN /hpf (0-5) 08/08/18 19:00 Urine WBC 6-10 /hpf (0-5) 08/08/18 19:00 Ur Epithelial Cells FEW /lpf (FEW) 08/08/18 19:00 Urine Bacteria MODERATE /hpf (NONE SEEN) H 08/08/18 19:00 Ur Random Sodium 95 mmol/L 08/12/18 17:26 Urine Creatinine 27.0 mg/dl (39.0-259.0) L 08/12/18 17:26 Microalb/Creat Ratio <14.8 mg/g creat (0.0-30.0) 08/12/18 17:26 Urine Opiates Screen NEGATIVE (NEGATIVE) 08/08/18 19:00 Urine Methadone Screen NEGATIVE (NEGATIVE) 08/08/18 19:00 Ur Barbiturates Screen NEGATIVE (NEGATIVE) 08/08/18 19:00 Ur Tricyclics Screen NEGATIVE (NEGATIVE) 08/08/18 19:00 Ur Phencyclidine Scrn NEGATIVE (NEGATIVE) 08/08/18 19:00 Amphetamines Screen POSITIVE (NEGATIVE) H 08/08/18 19:00 U Methamphetamines Scrn POSITIVE (NEGATIVE) H 08/08/18 19:00 U Benzodiazepines Scrn NEGATIVE (NEGATIVE) 08/08/18 19:00 U Cocaine Metab Screen NEGATIVE (NEGATIVE) 08/08/18 19:00 U Cannabinoids Screen POSITIVE (NEGATIVE) H 08/08/18 19:00 HIV 1&2 Antibody Screen NEGATIVE (NEG) 08/11/18 04:15 Influenza A (Rapid) NEG FOR INF A 08/10/18 20:45 Influenza B (Rapid) NEG FOR INF B 08/10/18 20:45 - Physical Exam Vitals and I&O: Vital Signs Temp 97.8 F 08/15/18 12:06 Pulse 85 08/15/18 12:06 Resp 18 08/15/18 12:06 BP 117/78 08/15/18 12:06 Pulse Ox 98 08/15/18 12:06 Intake & Output 08/14/18 08/15/18 08/15/18 18:59 06:59 18:59 Intake Total 320 100 Output Total 1450 Balance -1130 100 Weight (lbs) 84.459 kg 84.368 kg Intake: Oral 320 100 Output: Urine 1450 Other: # Voids 2 2 Weight Source Bedscale Bedscale Active Medications: Current Medications Albuterol Sulfate (Albuterol 2.5mg/3ml Neb Ud) 2.5 mg HHN Q4HRT PRN PRN Reason: Shortness of Breath Stop: 10/08/18 09:25 Aspirin (Aspirin Chewable) 81 mg PO DAILY JOE Stop: 10/09/18 08:59 Last Admin: 08/15/18 09:29 Dose: 81 mg Furosemide (Lasix) 40 mg IVP BID JOE Stop: 04/27/19 16:59 Last Admin: 08/15/18 09:29 Dose: 40 mg Ceftriaxone Sodium 1 gm/ (Sodium Chloride) 50 mls @ 100 mls/hr IV Q24HR JOE Stop: 10/08/18 15:59 Last Admin: 08/14/18 16:14 Dose: 100 mls/hr Azithromycin 500 mg/ Sodium (Chloride) 250 mls @ 250 mls/hr IV Q24HR JOE Stop: 10/07/18 19:59 Last Admin: 08/14/18 21:28 Dose: 250 mls/hr Nitroglycerin (Nitrostat) 0.4 mg SL Q5MIN PRN PRN Reason: Chest Pain Stop: 10/07/18 19:44 Ondansetron HCl (Zofran) 4 mg IV Q6H PRN PRN Reason: Nausea / Vomiting Stop: 10/08/18 20:54 Last Admin: 08/10/18 22:47 Dose: 4 mg Simvastatin (Zocor) 20 mg PO HS JOE; Protocol Stop: 10/08/18 20:59 Last Admin: 08/14/18 21:28 Dose: 20 mg General: no acute distress, well developed, well nourished HEENT: atraumatic, normocephalic, PERRLA, EOMI Neck: supple, thyromegaly Cardiovascular: S1S2, regular Lungs: clear to auscultation bilaterally, clear to percussion Abdomen: soft, no tender, no distended Extremities: edema, no cyanosis, no clubbing Neurological: awake, alert, oriented Skin: intact - Procedures Procedures: Procedures Procedure Code Date INJECT/INFUSE NEC 99.29 02/21/10 Infectious Disease Assmt/Plan - Problem List Patient Problems: All Active Problems NSTEMI (non-ST elevated myocardial infarction) (Acute) I21.4 POSSIBLE SEIZURE WITH RIGHT EAR PAIN (Acute) - Assessment Assessment: 1. Right-sided pneumonia. 2. Mild urinary tract infection. 3. Congestive heart failure. 4. IV drug abuse. 5. Cardiomyopathy with low ejection fraction. 6. Renal insufficiency. 7. Drug abuse. 8. Elevated liver enzymes. - Plan Plan: Continue the same treatemnt. Abx: change antibiotics to augmentin po for 5 days. Nutritional Asmnt/Malnutr-PDOC - Dietary Evaluation Malnutrition Findings (Please click <Entered> for more info): Nutritional Asmnt/Malnutrition Start: 08/12/18 13: 25 Text: Status: Complete Freq: Protocol: Document 08/12/18 13:58 BETTINACHELY (Rec: 08/12/18 14:23 BETTINACHELY [id number]) Nutritional Asmnt/Malnutrition Patient General Information Nutritional Screening Moderate Risk Diagnosis mstemi, right hilar PNA Pertinent Medical Hx/Surgical Hx cardiomegaly, cardiomyopathy, renal insufficiency Subjective Information Pt was transfered to ICU d/t hypotension. Per nurse BP now ir fine. pt seen lying in bed at time of visit, awake and alert. Pt stated appetite has been ok, food is good, no question or concer. PO intake 50-100%, mostly 100% per EMR. Current Diet Order/ Nutrition Support low sodium Pertinent Medications lasix Pertinent Labs 08/12 Na 135, BUN 28, mg 1.8 Nutritional Hx/Data Height 1.8 m Height (Calculated Centimeters) 180.3 Current Weight (lbs) 94.347 kg Weight (Calculated Kilograms) 94.3 Weight (Calculated Grams) 84453.2 [place] Body Weight 172 Body Mass Index (BMI) 29.0 Weight Status Approriate GI Symptoms GI Symptoms None Last BM 08/10 Difficult in: None Skin Integrity/Comment: intact Current %PO Good (75-100%) Estimated Nutritional Goals BEE in Kcals: Using Current wt Calories/Kcals/Kg 23-27 Kcals Calculated 3385-2002 Protein: Using Current wt Protein g/k.8 monitor renal labs Protein Calculated 76 Fluid: ml 2185-2565ml (1ml/kcal) Nutritional Problem 1. Problem Problem altered nutrition related labs Etiology possible renal dysfunction Signs/Symptoms: BUN 28 Malnutrition Alert Is there a minimum of two criteria No selected? Query Text:Check all the applicable criteria. A minimum of two criteria are recommended for diagnosis of either severe or non-severe malnutrition. Malnutrition Related to Morbid Obesity Malnutrition related to morbid obesity No Intervention/Recommendation Comments 1. Continue with low sodium diet as ordered. Monitor renal labs and adjust protein intake as needed. 2. Monitor PO intake, wt, labs and skin integrity 3. F/U as moderate risk in 3-5 days Expected Outcomes/Goals Expected Outcomes/Goals 1. PO intake to meet at least 75% of nutritional needs. 2. Wt stability, skin to remain intact, labs to approach WNL.
== END 2018-08-15 12:15 | disposition left against medical advice (07) | DRG 190 ==
LOC: ER 17:44 → TELE 19:15 → ICU 08-10 23:15 → TELE 08-12 18:44
PROVIDERS: ADMIT Internal Medicine; ATTEND Internal Medicine
DX: I21.4 Non-ST elevation (NSTEMI) myocardial infarction (principal); J69.0 Pneumonitis due to inhalation of food and vomit; I50.43 Acute on chronic combined systolic (congestive) and diastolic (congestive) heart failure; N17.9 Acute kidney failure, unspecified; N18.3 Chronic kidney disease, stage 3 (moderate); I42.7 Cardiomyopathy due to drug and external agent; I13.0 Hypertensive heart and chronic kidney disease with heart failure and stage 1 through stage 4 chronic kidney disease, or unspecified chronic kidney disease; N39.0 Urinary tract infection, site not specified; F19.19 Other psychoactive substance abuse with unspecified psychoactive substance-induced disorder; Z66 Do not resuscitate; T43.625A Adverse effect of amphetamines, initial encounter; Z53.9 Procedure and treatment not carried out, unspecified reason; Y92.89 Other specified places as the place of occurrence of the external cause
CPT/HCPCS: 36415-UA; 71045-TC; 76770-TC; 80048-TC; 80053-TC; 80061-TC; 80307; 81001-TC; 81015-TC; 82043-90; 82570-TC; 83735-TC; 83880-TC; 84100-TC; 84300-TC; 84443-TC; 84484-TC; 85025-TC; 85379-TC; 85610-TC; 86703-TC; 87086-90; 87804-TC; 90799; 93005; 94760; 96375; J0456; J0696; J1940; J2060; J2405; J7040; P9046; X6452; Z7610